=== PATIENT | male | born 1980 ===

== ENCOUNTER 2019-02-16 10:10 | Inpatient (IN) | payer OTHER ==
[2019-02-16] MEDS ORDERED: ZOFRAN ODT PO/SL ONE (10:12)
[2019-02-16] MEDS ORDERED: NACL 0.9% 1000 ML IV ONE (10:14)
--- NOTE | 2019-02-16 10:14 | Event Note ---
ED Screening Note ED Screening Note: TO ER WITH SEVERE L SIDE PAIN NAUSEA; NO VOMITING RECENT UTI FEVER AND TACHY CODE SEPSIS HERE ALONE RX PILL FOR INFECTION- DOES NOT KNOW NAME PMH ??HTN PSH NONE CIG SMOKER NO ETOH NO DRUGS LIVES WITH FIJIAN ONLY This initial assessment/diagnostic orders/clinical plan/treatment(s) is/are sub ject to change based on patients health status, clinical progression and re- assessment by fellow clinical providers in the ED. Further treatment and workup at subsequent clinical providers discretion. Patient/guardian urged not to elope from the ED as their condition may be serious if not clinically assessed and managed. Initial orders include:
[2019-02-16] MEDS ORDERED: ZOFRAN IV ONE (10:17)
[2019-02-16] MEDS ORDERED: TYLENOL PO ONE (10:17)
[2019-02-16] MEDS ORDERED: MAXIPIME/NS 2 GM/100 ML 2 GM/100 ML BAG IV ONE (10:25)
--- NOTE | 2019-02-16 10:28 | Emergency Department Report ---
ED General Adult HPI - General Chief complaint: Fever Stated complaint: ABDOMINAL PAIN Time Seen by Provider: 02/16/19 10:12 Source: patient Mode of arrival: Ambulatory Limitations: No Limitations, Language Barrier - History of Present Illness Initial comments: Patient is a 39-year-old male presents emergency room with left-sided abdominal pain and nausea. Patient denies vomiting. Patient states he recently had urinary symptoms and was seen in a urgent care and given a antibiotic for his urinary infection. Patient states symptoms are worsening. Patient states he has a fever today. Patient states she's not feeling very good. Patient states his abdominal pain as a 10 out of 10. Patient states the pain is worse with movement and better with rest. -: Sudden Location: abdomen Radiation: non-radiation Severity scale (0 -10): 10 Quality: stabbing Consistency: constant Improves with: rest Worsens with: movement Associated Symptoms: fever/chills, malaise. denies: confusion, chest pain, cough, diaphoresis, headaches, loss of appetite, rash, seizure, shortness of breath, syncope, weakness - Related Data Home Medications Medication Instructions Recorded Confirmed Last Taken No Known Home Medications [No 02/16/19 02/16/19 Unknown Reported Home Medications] Allergies Allergy/AdvReac Type Severity Reaction Status Date / Time No Known Allergies Allergy Unverified 02/16/19 10:17 ED Review of Systems ROS: Stated complaint: ABDOMINAL PAIN Other details as noted in HPI Constitutional: chills, fever, malaise Eyes: denies: eye pain, eye discharge, vision change ENT: denies: ear pain, throat pain Respiratory: denies: cough, shortness of breath, wheezing Cardiovascular: denies: chest pain, palpitations Endocrine: no symptoms reported Gastrointestinal: abdominal pain, nausea. denies: vomiting, diarrhea Genitourinary: dysuria. denies: urgency Musculoskeletal: denies: back pain, joint swelling, arthralgia Skin: denies: rash, lesions Neurological: denies: headache, weakness, paresthesias Psychiatric: denies: anxiety, depression Hematological/Lymphatic: denies: easy bleeding, easy bruising ED Past Medical Hx - Past Medical History Previous Medical History?: No - Surgical History Past Surgical History?: No - Family History Family history: no significant - Social History Smoking Status: Never Smoker Substance Use Type: None - Medications Home Medications: Home Medications Medication Instructions Recorded Confirmed Last Taken Type No Known Home Medications [No 02/16/19 02/16/19 Unknown History Reported Home Medications] ED Physical Exam - General Limitations: No Limitations, Language Barrier General appearance: alert, in no apparent distress - Head Head exam: Present: atraumatic, normocephalic - Eye Eye exam: Present: normal appearance - ENT ENT exam: Present: mucous membranes moist - Neck Neck exam: Present: normal inspection - Respiratory Respiratory exam: Present: decreased breath sounds (on left). Absent: respiratory distress, wheezes, rales - Cardiovascular Cardiovascular Exam: Present: regular rate, normal rhythm. Absent: systolic murmur, diastolic murmur, rubs, gallop - GI/Abdominal GI/Abdominal exam: Present: soft, tenderness (left upper quadrant tenderness), normal bowel sounds - Rectal Rectal exam: Present: deferred - Extremities Exam Extremities exam: Present: normal inspection - Back Exam Back exam: Present: normal inspection - Neurological Exam Neurological exam: Present: alert, oriented X3 - Psychiatric Psychiatric exam: Present: normal affect, normal mood - Skin Skin exam: Present: warm, dry, intact, normal color. Absent: rash ED Course Vital Signs 02/16/19 02/16/19 02/16/19 10:15 10:57 11:00 Temperature 102.8 F H Pulse Rate 125 H 106 H Respiratory 20 48 H Rate Blood Pressure 143/89 133/93 O2 Sat by Pulse 94 94 94 Oximetry 02/16/19 02/16/19 02/16/19 11:16 11:30 12:00 Temperature Pulse Rate 90 85 Respiratory 36 H 29 H 32 H Rate Blood Pressure 119/86 116/83 O2 Sat by Pulse 94 94 94 Oximetry 02/16/19 02/16/19 02/16/19 12:30 12:55 13:00 Temperature 98.8 F Pulse Rate 91 H 101 H Respiratory 21 24 Rate Blood Pressure 131/92 138/95 O2 Sat by Pulse 90 Oximetry 02/16/19 02/16/19 02/16/19 13:18 13:30 14:00 Temperature 99.2 F Pulse Rate 87 81 Respiratory 31 H 28 H Rate Blood Pressure 138/95 122/84 O2 Sat by Pulse 97 98 Oximetry 02/16/19 14:30 Temperature Pulse Rate 80 Respiratory 29 H Rate Blood Pressure 119/82 O2 Sat by Pulse Oximetry - Reevaluation(s) Reevaluation #1: Patient states he is feeling better. Patient received 1 L fluid and will receive another. Patient received antibiotics. Patient's heart rate has improved 02/16/19 11:00 Discussed all results with patient. Patient will be admitted to the hospitalist service. Patient agrees to plan of care. 02/16/19 12:07 - Consultations Consultation #1: Hospitalist consulted for admission. Hospitalist to admit patient. Hospitalist to assume care patient. 02/16/19 12:08 ED Medical Decision Making - Lab Data Result diagrams: 02/16/19 10:34 02/16/19 10:34 - EKG Data -: EKG Interpreted by Ok EKG shows normal: sinus rhythm, axis, intervals, QRS complexes, ST-T waves Rate: normal - Radiology Data Radiology results: report reviewed CT ABDOMEN PELVIS WITHOUT CONTRAST: HISTORY: Abdominal pain, fever. COMPARISON: none. TECHNIQUE: Helical CT in 1.25mm intervals without IV contrast. Sagittal and coronal reconstructions. FINDINGS: Lung bases: Patchy infiltrate or partial atelectasis is noted in the left lower lobe. Minor linear atelectasis in the right lower lobe. Heart size is normal. Liver: Normal. Biliary system: Normal. Pancreas: Normal. Spleen: Normal. Kidneys/ureters/bladder: A 1.3 x 0.9 x 2.8 cm calculus is identified at the left ureteropelvic junction. There is moderate pyelocaliectasis within the left kidney. Multiple smaller calyceal stones are noted at the inferior pole of the left kidney. There are 2 punctate renal stones in the inferior right kidney. The bladder is unremarkable. Adrenal glands: Normal. Aorta: Normal. Intestines: Normal. Appendix: Not confidently identified, correlate with surgical history. No inflammatory changes in the right lower quadrant. Pelvic viscera: Normal. Ascites: None. Adenopathy: None. Musculoskeletal: Mild lumbar spondylosis. No fracture or suspicious bony lesion. IMPRESSION: Left lower lobe opacity as described. Large obstructing stone at the left ureteropelvic junction. Moderate pyelocaliectasis in the left kidney. Scattered bilateral renal stones as described. - Medical Decision Making Patient is a 39-year-old male that presents to emergency room with complaints of fever, abdominal pain, nausea. Patient found to have a left-sided pneumonia on chest x-ray. Patient had a CT of the abdomen done for his pain and was found to have findings consistent with pyelonephritis and kidney stones. Patient given antibiotics. Respond to have multiple lab abnormalities. Patient's findings consistent with infection with elevated white blood cell count and abnormal chemistry due to dehydration. Patient given antibiotics and fluids immediately upon arrival to the main side of the ER. Patient heart rate elevated but improved with fluids. Patient artery tried outpatient treatment for his urinary tract infection - Differential Diagnosis sepsis. Tachycardic. Dehydration. Pneumonia. Urinary tract infection. Critical Care Time: Yes Critical care attestation.: If time is entered above; I have spent that time in minutes in the direct care of this critically ill patient, excluding procedure time. Critical Care Time: 45 MINUTES ED Disposition Clinical Impression: Tachycardia, Pyelonephritis, Kidney stone on left side, Dehydration Sepsis Qualifiers: Sepsis type: sepsis due to unspecified organism Qualified Code(s): A41.9 - Sepsis, unspecified organism Pneumonia Qualifiers: Pneumonia type: due to unspecified organism Laterality: left Lung location: lower lobe of lung Qualified Code(s): J18.1 - Lobar pneumonia, unspecified organism Fever Qualifiers: Fever type: unspecified Qualified Code(s): R50.9 - Fever, unspecified Abdominal pain Qualifiers: Abdominal location: left upper quadrant Qualified Code(s): R10.12 - Left upper quadrant pain Disposition: OP ADMIT IP TO THIS HOSP Is pt being admited?: Yes Does the pt Need Aspirin: No Condition: Critical Time of Disposition: 12:08
[2019-02-16 10:57] LABS: Basophils # (Auto) 0.1 K/mm3 (0.0-0.1); Basophils % (Auto) 0.4 % (0.0-1.8); Eosinophils % (Auto) 0.1 % (0.0-4.3); Hematocrit 46.7 % (35.5-45.6); Hemoglobin 15.8 gm/dl (11.8-15.2); Lymphocytes # (Auto) 1.7 K/mm3 (1.2-5.4); Lymphocytes % (Auto) 9.4 % (13.4-35.0); Mean Corpuscular HGB Conc 34 % (32-34); Mean Corpuscular Volume 94 fl (84-94); Monocytes # (Auto) 1.5 K/mm3 (0.0-0.8); Monocytes % (Auto) 8.2 % (0.0-7.3); Platelet Count 305 K/mm3 (140-440); Red Blood Count 4.99 M/mm3 (3.65-5.03); Red Cell Distribution Width 14.5 % (13.2-15.2)
[2019-02-16] MEDS ORDERED: ROCEPHIN/NS 1 GM/50 ML 1 GM/50 ML BAG IV SCH (11:00)
[2019-02-16 11:11] LABS: Albumin 3.4 g/dL (3.9-5); Bilirubin,Direct 0.4 mg/dL (0-0.2)
[2019-02-16 11:12] LABS: Alanine Aminotransferase 62 units/L (7-56); Albumin 3.4 g/dL (3.9-5); BUN/Creatinine Ratio 13; Blood Urea Nitrogen 12 mg/dL (9-20); Calcium 8.7 mg/dL (8.4-10.2); Hemolysis Index 6
[2019-02-16] MEDS ORDERED: DILAUDID IV ONE (11:13)
[2019-02-16] MEDS ORDERED: NACL 0.9% 1000 ML 1,000 ML IV ONE (11:13)
--- NOTE | 2019-02-16 11:16 | XRay Report ---
ROUTINE CHEST, TWO VIEWS: HISTORY: Fever. A left lower lobe opacity is identified which could represent pneumonia. The remainder of the lungs are clear. Normal heart and mediastinal structures. Normal bony thorax. IMPRESSION: Left lower lobe infiltrate.
--- NOTE | 2019-02-16 11:29 | Cat Scan Report ---
CT ABDOMEN PELVIS WITHOUT CONTRAST: HISTORY: Abdominal pain, fever. COMPARISON: none. TECHNIQUE: Helical CT in 1.25mm intervals without IV contrast. Sagittal and coronal reconstructions. FINDINGS: Lung bases: Patchy infiltrate or partial atelectasis is noted in the left lower lobe. Minor linear atelectasis in the right lower lobe. Heart size is normal. Liver: Normal. Biliary system: Normal. Pancreas: Normal. Spleen: Normal. Kidneys/ureters/bladder: A 1.3 x 0.9 x 2.8 cm calculus is identified at the left ureteropelvic junction. There is moderate pyelocaliectasis within the left kidney. Multiple smaller calyceal stones are noted at the inferior pole of the left kidney. There are 2 punctate renal stones in the inferior right kidney. The bladder is unremarkable. Adrenal glands: Normal. Aorta: Normal. Intestines: Normal. Appendix: Not confidently identified, correlate with surgical history. No inflammatory changes in the right lower quadrant. Pelvic viscera: Normal. Ascites: None. Adenopathy: None. Musculoskeletal: Mild lumbar spondylosis. No fracture or suspicious bony lesion. IMPRESSION: Left lower lobe opacity as described. Large obstructing stone at the left ureteropelvic junction. Moderate pyelocaliectasis in the left kidney. Scattered bilateral renal stones as described.
[2019-02-16 13:27] LABS: Bilirubin,Urine NEG (Negative); Blood,Urine SM (Negative); Color,Urine Yellow (Yellow); Mucus,Urine FEW /HPF; Protein,Urine <15 mg/dL mg/dL (Negative); Urobilinogen,Urine < 2.0 mg/dL (<2.0)
[2019-02-16] MEDS: DILAUDID IV PRN ×2 (17:05→21:45)
[2019-02-16] MEDS ORDERED: DILAUDID ONE (17:14)
[2019-02-16] MEDS ORDERED: ZOFRAN IV PRN (19:42)
[2019-02-16] MEDS ORDERED: SODIUM CHLORIDE FLUSH SYRINGE 10 ML IV PRN (19:42)
--- NOTE | 2019-02-16 19:42 | History and Physical Report ---
History of Present Illness Date of examination: 02/16/19 Date of admission: 02/16/19 12:17 Chief complaint: Fever and Abdominal pain 2 days History of present illness: Patient is a 39-year-old male presents emergency room with left-sided abdominal pain and nausea. Patient denies vomiting. Patient states he recently had urinary symptoms and was seen in a urgent care and given a antibiotic for his urinary infection. Patient states symptoms are worsening. Patient states he has a fever today. Patient states he's not feeling very good. Patient states his abdominal pain as a 10 out of 10. Patient states the pain is worse with movement and better with rest. - Past Medical History Previous Medical History?: No - Surgical History Past Surgical History?: No - Family History Family history: no significant - Social History Smoking Status: Never Smoker Substance Use Type: None - Medications Home Medications: Home Medications Medication Instructions Recorded Confirmed Last Taken Type No Known Home Medications [No 02/16/19 02/16/19 Unknown History Reported Home Medications] Review of Systems ROS: Stated complaint: ABDOMINAL PAIN Other details as noted in HPI Constitutional: chills, fever, malaise Eyes: denies: eye pain, eye discharge, vision change ENT: denies: ear pain, throat pain Respiratory: denies: cough, shortness of breath, wheezing Cardiovascular: denies: chest pain, palpitations Endocrine: no symptoms reported Gastrointestinal: abdominal pain, nausea. denies: vomiting, diarrhea Genitourinary: dysuria. denies: urgency Musculoskeletal: denies: back pain, joint swelling, arthralgia Skin: denies: rash, lesions Neurological: denies: headache, weakness, paresthesias Psychiatric: denies: anxiety, depression Hematological/Lymphatic: denies: easy bleeding, easy bruising Medications and Allergies Allergies Allergy/AdvReac Type Severity Reaction Status Date / Time No Known Allergies Allergy Unverified 02/16/19 10:17 Home Medications Medication Instructions Recorded Confirmed Last Taken Type No Known Home Medications [No 02/16/19 02/16/19 Unknown History Reported Home Medications] Active Meds: Active Medications Hydromorphone HCl (Dilaudid) 0.5 mg IV Q3H PRN PRN Reason: Pain , Severe (7-10) Last Admin: 02/16/19 17:05 Dose: 0.5 mg Documented by: Exam - Constitutional Vitals: Temp Pulse Resp BP Pulse Ox 99.2 F 90 21 119/87 98 02/16/19 13:18 02/16/19 19:30 02/16/19 19:34 02/16/19 19:30 02/16/19 19:34 General appearance: Present: mild distress, well-nourished - EENT Eyes: Present: PERRL ENT: hearing intact, clear oral mucosa - Neck Neck: Present: supple, normal ROM - Respiratory Respiratory effort: normal Respiratory: bilateral: CTA - Cardiovascular Heart rate: 98 Rhythm: regular Heart Sounds: Present: S1 & S2. Absent: rub, click - Extremities Extremities: no ischemia, pulses intact, pulses symmetrical, No edema Peripheral Pulses: within normal limits - Abdominal General gastrointestinal: Present: soft, tender, non-distended, normal bowel sounds Localized gastrointestinal: tender: diffuse Male genitourinary: Present: normal - Rectal Rectal Exam: deferred - Integumentary Integumentary: Present: clear, warm, dry - Musculoskeletal Musculoskeletal: gait normal, strength equal bilaterally - Psychiatric Psychiatric: appropriate mood/affect, intact judgment & insight - Neurologic Neurologic: CNII-XII intact, moves all extremities - Allied Health Allied health notes reviewed: nursing, case management Results - Labs CBC & Chem 7: 02/16/19 10:34 02/16/19 10:34 Labs: Laboratory Last Values WBC 18.4 K/mm3 (4.5-11.0) H 02/16/19 10:34 RBC 4.99 M/mm3 (3.65-5.03) 02/16/19 10:34 Hgb 15.8 gm/dl (11.8-15.2) H 02/16/19 10:34 Hct 46.7 % (35.5-45.6) H 02/16/19 10:34 MCV 94 fl (84-94) 02/16/19 10:34 MCH 32 pg (28-32) 02/16/19 10:34 MCHC 34 % (32-34) 02/16/19 10:34 RDW 14.5 % (13.2-15.2) 02/16/19 10:34 Plt Count 305 K/mm3 (140-440) 02/16/19 10:34 Lymph % (Auto) 9.4 % (13.4-35.0) L 02/16/19 10:34 [place] % (Auto) 8.2 % (0.0-7.3) H 02/16/19 10:34 Eos % (Auto) 0.1 % (0.0-4.3) 02/16/19 10:34 Baso % (Auto) 0.4 % (0.0-1.8) 02/16/19 10:34 Lymph # 1.7 K/mm3 (1.2-5.4) 02/16/19 10:34 [place] # 1.5 K/mm3 (0.0-0.8) H 02/16/19 10:34 Eos # 0.0 K/mm3 (0.0-0.4) 02/16/19 10:34 Baso # 0.1 K/mm3 (0.0-0.1) 02/16/19 10:34 Seg Neutrophils % 81.9 % (40.0-70.0) H 02/16/19 10:34 Seg Neutrophils # 15.1 K/mm3 (1.8-7.7) H 02/16/19 10:34 Sodium 131 mmol/L (137-145) L 02/16/19 10:34 Potassium 3.4 mmol/L (3.6-5.0) L 02/16/19 10:34 Chloride 90.3 mmol/L (98-107) L 02/16/19 10:34 Carbon Dioxide 23 mmol/L (22-30) 02/16/19 10:34 21 mmol/L 02/16/19 10:34 BUN 12 mg/dL (9-20) 02/16/19 10:34 0.9 mg/dL (0.8-1.5) 02/16/19 10:34 Estimated GFR > 60 ml/min 02/16/19 10:34 13 % 02/16/19 10:34 Glucose 128 mg/dL (75-100) H 02/16/19 10:34 Lactic Acid 1.40 mmol/L (0.7-2.0) 02/16/19 13:12 Calcium 8.7 mg/dL (8.4-10.2) 02/16/19 10:34 1.20 mg/dL (0.1-1.2) 02/16/19 10:34 1.20 mg/dL (0.1-1.2) 02/16/19 10:34 0.4 mg/dL (0-0.2) H 02/16/19 10:34 0.8 mg/dL 02/16/19 10:34 AST 38 units/L (5-40) 02/16/19 10:34 AST 39 units/L (5-40) 02/16/19 10:34 ALT 62 units/L (7-56) H 02/16/19 10:34 ALT 62 units/L (7-56) H 02/16/19 10:34 86 units/L (35-129) 02/16/19 10:34 86 units/L (35-129) 02/16/19 10:34 8.7 g/dL (6.3-8.2) H 02/16/19 10:34 8.7 g/dL (6.3-8.2) H 02/16/19 10:34 3.4 g/dL (3.9-5) L 02/16/19 10:34 3.4 g/dL (3.9-5) L 02/16/19 10:34 0.6 % 02/16/19 10:34 0.6 % 02/16/19 10:34 Yellow (Yellow) 02/16/19 13:16 Hazy (Clear) 02/16/19 13:16 6.0 (5.0-7.0) 02/16/19 13:16 Ur Specific [place] 1.018 (1.003-1.030) 02/16/19 13:16 <15 mg/dl mg/dL (Negative) 02/16/19 13:16 Neg mg/dL (Negative) 02/16/19 13:16 20 mg/dL (Negative) 02/16/19 13:16 Sm (Negative) 02/16/19 13:16 Neg (Negative) 02/16/19 13:16 Neg (Negative) 02/16/19 13:16 < 2.0 mg/dL (<2.0) 02/16/19 13:16 Ur Leukocyte Esterase Sm (Negative) 02/16/19 13:16 19.0 /HPF (0.0-6.0) H 02/16/19 13:16 7.0 /HPF (0.0-6.0) 02/16/19 13:16 U Epithel Cells (Auto) 2.0 /HPF (0-13.0) 02/16/19 13:16 Few /HPF 02/16/19 13:16 - Imaging and Cardiology EKG: report reviewed (NSR 92/min) Chest x-ray: report reviewed CT scan - abdomen: report reviewed Imaging and Cardiology: CT abdomen IMPRESSION: Left lower lobe opacity as described. Large obstructing stone at the left ureteropelvic junction. Moderate pyelocaliectasis in the left kidney. Scattered bilateral renal stones as described. CXR HISTORY: Fever. A left lower lobe opacity is identified which could represent pneumonia. The remainder of the lungs are clear. Normal heart and mediastinal structures. Normal bony thorax. IMPRESSION: Left lower lobe infiltrate. Assessment and Plan Advance Directives: Yes (Full code) VTE prophylaxis?: Chemical Plan of care discussed with patient/family: Yes - Patient Problems (1) Sepsis Current Visit: Yes Status: Acute Qualifiers: Sepsis type: sepsis due to unspecified organism Qualified Code(s): A41.9 - Sepsis, unspecified organism Plan to address problem: Sepsis protocol IV Cefepime and IV Vancomycin (2) LLL pneumonia Current Visit: Yes Status: Acute Plan to address problem: On cefepime and Vancomycin (3) Pyelonephritis Current Visit: Yes Status: Acute Plan to address problem: L uretero pelvic stone Pyelo a possibility Urine wbc present Urology consult requested Texted the consult (4) Kidney stone on left side Current Visit: Yes Status: Acute Plan to address problem: Urology consult requested (5) DVT prophylaxis Current Visit: Yes Status: Acute Plan to address problem: On Lovenox and GI prophylaxis
[2019-02-16] MEDS ORDERED: VANCOMYCIN PHARMACY TO DOSE IV SCH (20:00)
[2019-02-16] MEDS: PEPCID IV SCH (21:45)
[2019-02-16] MEDS: D5NS 1,000 ML IV SCH (21:45)
[2019-02-16] MEDS: SODIUM CHLORIDE FLUSH SYRINGE 10 ML IV SCH (21:46)
[2019-02-16] MEDS: MAXIPIME/NS 2 GM/100 ML 2 GM/100 ML BAG IV SCH (22:26)
[2019-02-17] MEDS: DILAUDID IV PRN ×2 (04:02→21:24)
[2019-02-17] MEDS: MAXIPIME/NS 2 GM/100 ML 2 GM/100 ML BAG IV SCH ×3 (05:24→21:24)
[2019-02-17 06:53] LABS: Basophils # (Auto) 0.1 K/mm3 (0.0-0.1); Basophils % (Auto) 0.3 % (0.0-1.8); Eosinophils # (Auto) 0.1 K/mm3 (0.0-0.4); Eosinophils % (Auto) 0.7 % (0.0-4.3); Hematocrit 39.7 % (35.5-45.6); Hemoglobin 13.4 gm/dl (11.8-15.2); Lymphocytes # (Auto) 1.9 K/mm3 (1.2-5.4); Lymphocytes % (Auto) 12.7 % (13.4-35.0); Mean Corpuscular HGB Conc 34 % (32-34); Mean Corpuscular Volume 95 fl (84-94); Monocytes # (Auto) 1.2 K/mm3 (0.0-0.8); Monocytes % (Auto) 8.4 % (0.0-7.3); Platelet Count 277 K/mm3 (140-440); Red Cell Distribution Width 14.4 % (13.2-15.2)
[2019-02-17 07:17] LABS: Alanine Aminotransferase 37 units/L (7-56); Albumin 2.8 g/dL (3.9-5); BUN/Creatinine Ratio 13; Blood Urea Nitrogen 9 mg/dL (9-20); Hemolysis Index 1
--- NOTE | 2019-02-17 09:10 | Consultation ---
History of Present Illness - Reason for Consult Consult date: 02/17/19 left UPJ stone - History of Present Illness Patient with a history of left flank pain who on presentation was noted to have a 1.1 cm obstructing left ureteropelvic stone. He has a minimal white count. His pain has improved since admission. Medications and Allergies Allergies Allergy/AdvReac Type Severity Reaction Status Date / Time No Known Allergies Allergy Unverified 02/16/19 10:17 Home Medications Medication Instructions Recorded Confirmed Last Taken Type No Known Home Medications [No 02/16/19 02/16/19 Unknown History Reported Home Medications] Active Meds: Active Medications Acetaminophen (Tylenol) 650 mg PO Q4H PRN PRN Reason: Pain MILD(1-3)/Fever >100.5/GOMEZ Famotidine (Pepcid) 20 mg IV BID [facility] Last Admin: 02/16/19 21:45 Dose: 20 mg Documented by: Hydromorphone HCl (Dilaudid) 0.5 mg IV Q3H PRN PRN Reason: Pain , Severe (7-10) Last Admin: 02/17/19 04:02 Dose: 0.5 mg Documented by: Dextrose/Sodium Chloride (D5ns) 1,000 mls @ 75 mls/hr IV DIRECT MIGUEL Last Admin: 02/16/19 21:45 Dose: 75 mls/hr Documented by: Cefepime HCl (Maxipime/Ns 2 Gm/100 Ml) 2 gm in 100 mls @ 200 mls/hr IV Q8HR MIGUEL; Protocol Last Admin: 02/17/19 05:24 Dose: 200 mls/hr Documented by: Ondansetron HCl (Zofran) 4 mg IV Q8H PRN PRN Reason: Nausea And Vomiting Oxycodone/Acetaminophen (Percocet 5/325) 1 tab PO Q6H PRN PRN Reason: Pain, Moderate (4-6) Sodium Chloride (Sodium Chloride Flush Syringe 10 Ml) 10 ml IV BID [facility] Last Admin: 02/16/19 21:46 Dose: 10 ml Documented by: Sodium Chloride (Sodium Chloride Flush Syringe 10 Ml) 10 ml IV PRN PRN PRN Reason: LINE FLUSH Review of Systems ROS unobtainable: due to mental status Exam - Constitutional Vitals: Temp Pulse Resp BP Pulse Ox 99.0 F 83 20 105/59 96 02/17/19 00:09 02/17/19 00:09 02/17/19 00:09 02/17/19 00:09 02/17/19 00:09 General appearance: Present: no acute distress - EENT Eyes: Present: EOM intact ENT: hearing intact - Neck Neck: Present: supple, normal ROM - Respiratory Respiratory effort: normal - Abdominal Male genitourinary: Present: deferred - Rectal Rectal Exam: deferred - Psychiatric Psychiatric: cooperative Results - Labs CBC & Chem 7: 02/17/19 05:45 02/17/19 05:45 Labs: Abnormal lab results 02/16/19 02/16/19 02/16/19 Range/Units 10:34 10:34 10:34 WBC 18.4 H (4.5-11.0) K/mm3 Hgb 15.8 H (11.8-15.2) gm/dl Hct 46.7 H (35.5-45.6) % MCV (84-94) fl Lymph % (Auto) 9.4 L (13.4-35.0) % [place] % (Auto) 8.2 H (0.0-7.3) % [place] # 1.5 H (0.0-0.8) K/mm3 Seg Neutrophils % 81.9 H (40.0-70.0) % Seg Neutrophils # 15.1 H (1.8-7.7) K/mm3 Sodium 131 L (137-145) mmol/L Potassium 3.4 L (3.6-5.0) mmol/L Chloride 90.3 L (98-107) mmol/L Creatinine (0.8-1.5) mg/dL Glucose 128 H (75-100) mg/dL Calcium (8.4-10.2) mg/dL Direct Bilirubin 0.4 H (0-0.2) mg/dL ALT 62 H 62 H (7-56) units/L Total Protein 8.7 H 8.7 H (6.3-8.2) g/dL Albumin 3.4 L 3.4 L (3.9-5) g/dL Urine WBC (Auto) (0.0-6.0) /HPF 02/16/19 02/17/19 02/17/19 Range/Units 13:16 05:45 05:45 WBC 14.7 H (4.5-11.0) K/mm3 Hgb (11.8-15.2) gm/dl Hct (35.5-45.6) % MCV 95 H (84-94) fl Lymph % (Auto) 12.7 L (13.4-35.0) % [place] % (Auto) 8.4 H (0.0-7.3) % [place] # 1.2 H (0.0-0.8) K/mm3 Seg Neutrophils % 77.9 H (40.0-70.0) % Seg Neutrophils # 11.5 H (1.8-7.7) K/mm3 Sodium (137-145) mmol/L Potassium 3.3 L (3.6-5.0) mmol/L Chloride (98-107) mmol/L Creatinine 0.7 L (0.8-1.5) mg/dL Glucose 111 H (75-100) mg/dL Calcium 8.0 L (8.4-10.2) mg/dL Direct Bilirubin (0-0.2) mg/dL ALT (7-56) units/L Total Protein (6.3-8.2) g/dL Albumin 2.8 L (3.9-5) g/dL Urine WBC (Auto) 19.0 H (0.0-6.0) /HPF - Imaging and Cardiology CT scan - abdomen: image reviewed Assessment and Plan Patient will be made nothing by mouth after midnight. He will be scheduled for either a percutaneous nephrostomy tube placement tomorrow or Tuesday depending upon his clinical condition.
[2019-02-17] MEDS: PEPCID IV SCH ×2 (10:10→21:24)
[2019-02-17] MEDS: SODIUM CHLORIDE FLUSH SYRINGE 10 ML IV SCH (10:11)
[2019-02-17] MEDS: D5NS 1,000 ML IV SCH (10:21)
--- NOTE | 2019-02-17 10:32 | Progress Note ---
Assessment and Plan Assessment and plan: Patient is a 39-year-old male presents emergency room with left-sided abdominal pain and nausea and fever. Patient denies vomiting. Patient states he recently had urinary symptoms and was seen in a urgent care and given antibiotic for his urinary infection. Patient states symptoms are worsening. Sepsis due to pneumonia, pyelonephritis Admitted to medical floor Continue cefepime IV, vancomycin ID physician consulted Pneumonia LLL on iv Cefepime Pyelonephritis on left On Cefepime large stone left uretero-pelvic junction Urology consulted Dr. Lewis, IR consulted Full code History Interval history: Left flank pain fever Hospitalist Physical - Physical exam Narrative exam: Gen: Not in acute distress, lying in bed, HEENT: Normocephalic, atraumatic Neck: supple, no JVD Heart: S1 and S2 reg, no murmurs, rubs or gallop Lungs: Clear, no crackles, no wheeze Abd: soft, tender left flank, non distended, normal BS Ext: No edema, no clubbing, no cyanosis, Neuro: Awake,alert, oriented x 3, moves all ext, non focal Psych:Normal mood - Constitutional Vitals: Temp Pulse Resp BP Pulse Ox 99.0 F 83 20 105/59 96 02/17/19 00:09 02/17/19 00:09 02/17/19 00:09 02/17/19 00:09 02/17/19 00:09 General appearance: Present: no acute distress Results - Labs CBC & Chem 7: 02/17/19 05:45 02/17/19 05:45 Labs: Laboratory Last Values WBC 14.7 K/mm3 (4.5-11.0) H 02/17/19 05:45 RBC 4.20 M/mm3 (3.65-5.03) 02/17/19 05:45 Hgb 13.4 gm/dl (11.8-15.2) 02/17/19 05:45 Hct 39.7 % (35.5-45.6) D 02/17/19 05:45 MCV 95 fl (84-94) H 02/17/19 05:45 MCH 32 pg (28-32) 02/17/19 05:45 MCHC 34 % (32-34) 02/17/19 05:45 RDW 14.4 % (13.2-15.2) 02/17/19 05:45 Plt Count 277 K/mm3 (140-440) 02/17/19 05:45 Lymph % (Auto) 12.7 % (13.4-35.0) L 02/17/19 05:45 Weber % (Auto) 8.4 % (0.0-7.3) H 02/17/19 05:45 Eos % (Auto) 0.7 % (0.0-4.3) 02/17/19 05:45 Baso % (Auto) 0.3 % (0.0-1.8) 02/17/19 05:45 Lymph # 1.9 K/mm3 (1.2-5.4) 02/17/19 05:45 Weber # 1.2 K/mm3 (0.0-0.8) H 02/17/19 05:45 Eos # 0.1 K/mm3 (0.0-0.4) 02/17/19 05:45 Baso # 0.1 K/mm3 (0.0-0.1) 02/17/19 05:45 Seg Neutrophils % 77.9 % (40.0-70.0) H 02/17/19 05:45 Seg Neutrophils # 11.5 K/mm3 (1.8-7.7) H 02/17/19 05:45 Sodium 139 mmol/L (137-145) D 02/17/19 05:45 Potassium 3.3 mmol/L (3.6-5.0) L 02/17/19 05:45 Chloride 99.9 mmol/L (98-107) 02/17/19 05:45 Carbon Dioxide 27 mmol/L (22-30) 02/17/19 05:45 15 mmol/L 02/17/19 05:45 BUN 9 mg/dL (9-20) 02/17/19 05:45 0.7 mg/dL (0.8-1.5) L 02/17/19 05:45 Estimated GFR > 60 ml/min 02/17/19 05:45 13 % 02/17/19 05:45 Glucose 111 mg/dL (75-100) H 02/17/19 05:45 5.8 % (4-6) 02/16/19 10:34 Lactic Acid 1.40 mmol/L (0.7-2.0) 02/16/19 13:12 Calcium 8.0 mg/dL (8.4-10.2) L 02/17/19 05:45 0.80 mg/dL (0.1-1.2) 02/17/19 05:45 0.4 mg/dL (0-0.2) H 02/16/19 10:34 0.8 mg/dL 02/16/19 10:34 AST 19 units/L (5-40) 02/17/19 05:45 ALT 37 units/L (7-56) 02/17/19 05:45 63 units/L (35-129) 02/17/19 05:45 7.0 g/dL (6.3-8.2) 02/17/19 05:45 2.8 g/dL (3.9-5) L 02/17/19 05:45 0.7 % 02/17/19 05:45 Yellow (Yellow) 02/16/19 13:16 Hazy (Clear) 02/16/19 13:16 6.0 (5.0-7.0) 02/16/19 13:16 Ur Specific [place] 1.018 (1.003-1.030) 02/16/19 13:16 <15 mg/dl mg/dL (Negative) 02/16/19 13:16 Neg mg/dL (Negative) 02/16/19 13:16 20 mg/dL (Negative) 02/16/19 13:16 Sm (Negative) 02/16/19 13:16 Neg (Negative) 02/16/19 13:16 Neg (Negative) 02/16/19 13:16 < 2.0 mg/dL (<2.0) 02/16/19 13:16 Ur Leukocyte Esterase Sm (Negative) 02/16/19 13:16 19.0 /HPF (0.0-6.0) H 02/16/19 13:16 7.0 /HPF (0.0-6.0) 02/16/19 13:16 U Epithel Cells (Auto) 2.0 /HPF (0-13.0) 02/16/19 13:16 Few /HPF 02/16/19 13:16 Active Medications - Current Medications Current Medications: Generic Name Dose Route Start Last Admin Trade Name Freq PRN Reason Stop Dose Admin Acetaminophen 650 mg 02/16/19 19:42 Tylenol PO Q4H PRN Pain MILD(1-3)/Fever >100.5/GOMEZ Famotidine 20 mg 02/16/19 22:00 02/17/19 10:10 Pepcid IV 20 mg BID MIGUEL Administration Hydromorphone HCl 0.5 mg 02/16/19 17:01 02/17/19 04:02 Dilaudid IV 0.5 mg Q3H PRN Administration Pain , Severe (7-10) Dextrose/Sodium Chloride 1,000 mls @ 75 mls/hr 02/16/19 20:00 02/17/19 10:21 D5ns IV 75 mls/hr DIRECT MIGUEL Administration Cefepime HCl 2 gm in 100 mls @ 200 mls/hr 02/16/19 22:00 02/17/19 05:24 Maxipime/Ns 2 Gm/100 Ml IV 200 mls/hr Q8HR MGIUEL Administration Protocol Ondansetron HCl 4 mg 02/16/19 19:42 Zofran IV Q8H PRN Nausea And Vomiting Oxycodone/Acetaminophen 1 tab 02/16/19 19:42 Percocet 5/325 PO Q6H PRN Pain, Moderate (4-6) Sodium Chloride 10 ml 02/16/19 22:00 02/17/19 10:11 Sodium Chloride Flush Syringe 10 Ml IV 10 ml BID MIGUEL Administration Sodium Chloride 10 ml 02/16/19 19:42 Sodium Chloride Flush Syringe 10 Ml IV PRN PRN LINE FLUSH
[2019-02-17] MEDS: D5W/NS W/KCL 20MEQ 20 MEQ/1,000 ML BAG IV SCH (13:56)
--- NOTE | 2019-02-17 16:25 | Consultation ---
History of Present Illness - Reason for Consult Consult date: 02/17/19 Sepsis, pyelonephritis, pneumonia Requesting physician: ANGELA APONTE - History of Present Illness The patient is a 39-year-old male with no significant past medical history presented to the emergency room with left-sided flank pain and associated nausea. He was recently given an antibiotic for a possible UTI after he was seen with similar symptoms at Urgent Care. CT scan here revealed left-sided obstructing stone. Patient was also found to have leukocytosis with concerns for sepsis. There was also concern for left-sided pneumonia. Patient was empirically started on IV cefepime and vancomycin. Infectious diseases was consulted for additional recommendations. Had a fever of 102F on admission. Now afebrile. Denies any respiratory symptoms. Review of Systems: General: + for fever HEENT: no new visual disturbance Respiratory: No cough, sputum, hemoptysis or shortness of breath Cardiovascular: No chest pain, syncope Gastrointestinal: nausea +, no vomiting or diarrhea Genitourinary: dysuria +, flank pain + Musculoskeletal: No new or worsening neck pain or back pain Neurologic: No headaches, seizures Hematologic: No easy bruising or bleeding Endocrine: No night sweats or acute weight loss Skin: negative for rash, jaundice Psychiatric: No suicidal or homicidal ideation Medications and Allergies Allergies Allergy/AdvReac Type Severity Reaction Status Date / Time No Known Allergies Allergy Unverified 02/16/19 10:17 Home Medications Medication Instructions Recorded Confirmed Last Taken Type No Known Home Medications [No 02/16/19 02/16/19 Unknown History Reported Home Medications] Active Meds: Active Medications Acetaminophen (Tylenol) 650 mg PO Q4H PRN PRN Reason: Pain MILD(1-3)/Fever >100.5/GOMEZ Famotidine (Pepcid) 20 mg IV BID [facility] Last Admin: 02/17/19 10:10 Dose: 20 mg Documented by: Hydromorphone HCl (Dilaudid) 0.5 mg IV Q3H PRN PRN Reason: Pain , Severe (7-10) Last Admin: 02/17/19 04:02 Dose: 0.5 mg Documented by: Cefepime HCl (Maxipime/Ns 2 Gm/100 Ml) 2 gm in 100 mls @ 200 mls/hr IV Q8HR MIGUEL; Protocol Last Admin: 02/17/19 13:54 Dose: 200 mls/hr Documented by: Potassium Chloride/Dextrose/Sod Cl (D5w/Ns W/Kcl 20meq) 20 meq in 1,000 mls @ 75 mls/hr IV DIRECT [facility] Last Admin: 02/17/19 13:56 Dose: 75 mls/hr Documented by: Ondansetron HCl (Zofran) 4 mg IV Q8H PRN PRN Reason: Nausea And Vomiting Oxycodone/Acetaminophen (Percocet 5/325) 1 tab PO Q6H PRN PRN Reason: Pain, Moderate (4-6) Sodium Chloride (Sodium Chloride Flush Syringe 10 Ml) 10 ml IV BID [facility] Last Admin: 02/17/19 10:11 Dose: 10 ml Documented by: Sodium Chloride (Sodium Chloride Flush Syringe 10 Ml) 10 ml IV PRN PRN PRN Reason: LINE FLUSH Physical Examination - Physical Exam Narrative exam: Physical Exam: Constitutional: Alert, cooperative. No acute distress Head, Ears, Nose: Normocephalic, atraumatic. External ears, nose normal Eyes: Conjunctivae/corneas clear. No icterus. No ptosis. Neck: Supple, no meningeal signs Oral: no thrush. Cardiovascular: S1, S2 normal. Respiratory: AE decreased in left base. GI: Soft, non-tender; bowel sounds normal. No peritoneal signs. Left CVA tenderness Musculoskeletal: No pedal edema, no cyanosis. Skin: No rash or abscess Hem/Lymphatic: No palpable cervical or supraclavicular nodes. No lymphangitis Psych: Mood ok. Affect normal Neurological: Awake, alert, oriented. No gross abnormality - Constitutional Vitals: Vital Signs Temp Pulse Resp BP Pulse Ox 99.0 F 83 20 105/59 96 02/17/19 00:09 02/17/19 00:09 02/17/19 00:09 02/17/19 00:09 02/17/19 00:09 Temperature -Last 24 Hours Temperature 99.0 F Results - Labs CBC & Chem 7: 02/17/19 05:45 02/17/19 05:45 Labs: Abnormal lab results 02/17/19 02/17/19 Range/Units 05:45 05:45 WBC 14.7 H (4.5-11.0) K/mm3 MCV 95 H (84-94) fl Lymph % (Auto) 12.7 L (13.4-35.0) % [place] % (Auto) 8.4 H (0.0-7.3) % [place] # 1.2 H (0.0-0.8) K/mm3 Seg Neutrophils % 77.9 H (40.0-70.0) % Seg Neutrophils # 11.5 H (1.8-7.7) K/mm3 Potassium 3.3 L (3.6-5.0) mmol/L Creatinine 0.7 L (0.8-1.5) mg/dL Glucose 111 H (75-100) mg/dL Calcium 8.0 L (8.4-10.2) mg/dL Albumin 2.8 L (3.9-5) g/dL - Imaging and Cardiology Chest x-ray: report reviewed, image reviewed (Chest x-ray shows small left lower lobe infiltrate) CT scan - abdomen: report reviewed, image reviewed (CT abdomen and pelvis showed small left lower lobe infiltrate. Also evidence of left kidney with obstructing stone.) Assessment and Plan Cultures: 02/16/2019 blood culture: No growth 02/16/2019 urine culture: No growth A/P: 39/M with no PMH, admitted with: 1) Sepsis, POA likely secondary to left-sided pyelonephritis, nephrolithiasis: Planned for possible IR nephrostomy. Leucocytosis improving. Continue empiric cefepime. Cultures could be negative given recent abx use. 2) ?LLL pneumonia: ?could be related to atelectasis due to not taking deep breath due to pain. Anyways, patient is on abx. Recs: Continue IV Cefepime, dose decreased to 2 gm q12 hrs Discontinued vancomycin Follow-up cultures Awaiting IR nephrostomy MD Damon Smith [facility] C: [phone] O: [phone] F: [phone]
--- NOTE | 2019-02-17 21:42 | Consultation ---
HISTORY OF PRESENT ILLNESS: This is a 39-year-old gentleman who I just happened to see on my list and I was not called, was admitted with a large stone in left kidney ____ I just happened to see on my list and it is 1.3 x 2.8 x 0.9. He just had something to eat and drink and I spoke to him and his family about treatment options. PAST MEDICAL HISTORY: No history. PAST SURGICAL HISTORY: Denied. ALLERGIES: Negative. SOCIAL HISTORY: Negative. FAMILY HISTORY: Noncontributory. REVIEW OF SYSTEMS: Left flank pain. PHYSICAL EXAMINATION: GENERAL: He is awake. He is in no distress. He does not look toxic. ABDOMEN: Soft, nondistended, mild left flank pain. GENITALIA: Normal external genitalia. IMPRESSION AND PLAN: A 39-year-old, large renal stone. I spoke to interventional, options include stenting versus a perc tube. Probably best to place the perc tube because we could use that for access to do a percutaneous nephrolithotomy that is more effective than ureteroscopic extraction, it is a big UPJ stone. JOB# [id number] GRISELDA/JEAN CLAUDE
[2019-02-18 06:53] LABS: Hematocrit 39.7 % (35.5-45.6); Hemoglobin 13.3 gm/dl (11.8-15.2); Mean Corpuscular HGB Conc 34 % (32-34); Mean Corpuscular Volume 94 fl (84-94); Platelet Count 294 K/mm3 (140-440); Red Blood Count 4.23 M/mm3 (3.65-5.03); Red Cell Distribution Width 14.2 % (13.2-15.2)
[2019-02-18 06:56] LABS: BUN/Creatinine Ratio 12; Blood Urea Nitrogen 7 mg/dL (9-20); Calcium 8.6 mg/dL (8.4-10.2); Hemolysis Index 0
[2019-02-18] MEDS: SODIUM CHLORIDE FLUSH SYRINGE 10 ML IV SCH ×2 (07:31→09:51)
[2019-02-18] MEDS: D5W/NS W/KCL 20MEQ 20 MEQ/1,000 ML BAG IV SCH (07:43)
[2019-02-18] MEDS ORDERED: KPHOS 30 MMOL in NACL 0.9% 500 ML 500 ML IV ONE (08:29)
[2019-02-18] MEDS: PEPCID IV SCH ×2 (09:51→22:33)
--- NOTE | 2019-02-18 10:10 | Progress Note ---
Assessment and Plan Assessment and plan: Patient is a 39-year-old male presents emergency room with left-sided abdominal pain and nausea and fever. Patient denies vomiting. Patient states he recently had urinary symptoms and was seen in a urgent care and given antibiotic for his urinary infection. He was seen in ED, diagnosed with Sepsis due to left pyelonephritis, large stone left uretero-pelvic junction. For nephrostomy tube today. Sepsis due to pneumonia, pyelonephritis Admitted to medical floor Continue cefepime IV, vancomycin ID physician following Pneumonia LLL on iv Cefepime Pyelonephritis on left On Cefepime large stone left uretero-pelvic junction Urology consulted Dr. Lewis, IR consulted Full code status Discussed with patient and at bedside History Interval history: Left flank pain fever Hospitalist Physical - Physical exam Narrative exam: Gen: Not in acute distress, lying in bed, HEENT: Normocephalic, atraumatic Neck: supple, no JVD Heart: S1 and S2 reg, no murmurs, rubs or gallop Lungs: Clear, no crackles, no wheeze Abd: soft, tender left flank, non distended, normal BS Ext: No edema, no clubbing, no cyanosis, Neuro: Awake,alert, oriented x 3, moves all ext, non focal Psych:Normal mood - Constitutional Vitals: Temp Pulse Resp BP Pulse Ox 99.7 F H 87 20 132/87 94 02/18/19 05:33 02/18/19 05:33 02/18/19 05:33 02/18/19 05:33 02/18/19 05:33 General appearance: Present: no acute distress Results - Labs CBC & Chem 7: 02/18/19 13:17 02/18/19 13:17 Labs: Laboratory Last Values WBC 13.8 K/mm3 (4.5-11.0) H 02/18/19 05:27 RBC 4.23 M/mm3 (3.65-5.03) 02/18/19 05:27 Hgb 13.3 gm/dl (11.8-15.2) 02/18/19 05:27 Hct 39.7 % (35.5-45.6) 02/18/19 05:27 MCV 94 fl (84-94) 02/18/19 05:27 MCH 32 pg (28-32) 02/18/19 05:27 MCHC 34 % (32-34) 02/18/19 05:27 RDW 14.2 % (13.2-15.2) 02/18/19 05:27 Plt Count 294 K/mm3 (140-440) 02/18/19 05:27 Lymph % (Auto) 12.7 % (13.4-35.0) L 02/17/19 05:45 [place] % (Auto) 8.4 % (0.0-7.3) H 02/17/19 05:45 Eos % (Auto) 0.7 % (0.0-4.3) 02/17/19 05:45 Baso % (Auto) 0.3 % (0.0-1.8) 02/17/19 05:45 Lymph # 1.9 K/mm3 (1.2-5.4) 02/17/19 05:45 [place] # 1.2 K/mm3 (0.0-0.8) H 02/17/19 05:45 Eos # 0.1 K/mm3 (0.0-0.4) 02/17/19 05:45 Baso # 0.1 K/mm3 (0.0-0.1) 02/17/19 05:45 Seg Neutrophils % 77.9 % (40.0-70.0) H 02/17/19 05:45 Seg Neutrophils # 11.5 K/mm3 (1.8-7.7) H 02/17/19 05:45 Sodium 141 mmol/L (137-145) 02/18/19 05:27 Potassium 3.1 mmol/L (3.6-5.0) L 02/18/19 05:27 Chloride 102.7 mmol/L (98-107) 02/18/19 05:27 Carbon Dioxide 26 mmol/L (22-30) 02/18/19 05:27 15 mmol/L 02/18/19 05:27 BUN 7 mg/dL (9-20) L 02/18/19 05:27 0.6 mg/dL (0.8-1.5) L 02/18/19 05:27 Estimated GFR > 60 ml/min 02/18/19 05:27 12 % 02/18/19 05:27 Glucose 115 mg/dL (75-100) H 02/18/19 05:27 5.8 % (4-6) 02/16/19 10:34 Lactic Acid 1.40 mmol/L (0.7-2.0) 02/16/19 13:12 Calcium 8.6 mg/dL (8.4-10.2) 02/18/19 05:27 Phosphorus 2.20 mg/dL (2.5-4.5) L 02/18/19 05:27 Magnesium 1.70 mg/dL (1.7-2.3) 02/18/19 05:27 0.80 mg/dL (0.1-1.2) 02/17/19 05:45 0.4 mg/dL (0-0.2) H 02/16/19 10:34 0.8 mg/dL 02/16/19 10:34 AST 19 units/L (5-40) 02/17/19 05:45 ALT 37 units/L (7-56) 02/17/19 05:45 63 units/L (35-129) 02/17/19 05:45 7.0 g/dL (6.3-8.2) 02/17/19 05:45 2.8 g/dL (3.9-5) L 02/17/19 05:45 0.7 % 02/17/19 05:45 Yellow (Yellow) 02/16/19 13:16 Hazy (Clear) 02/16/19 13:16 6.0 (5.0-7.0) 02/16/19 13:16 Ur Specific [place] 1.018 (1.003-1.030) 02/16/19 13:16 <15 mg/dl mg/dL (Negative) 02/16/19 13:16 Neg mg/dL (Negative) 02/16/19 13:16 20 mg/dL (Negative) 02/16/19 13:16 Sm (Negative) 02/16/19 13:16 Neg (Negative) 02/16/19 13:16 Neg (Negative) 02/16/19 13:16 < 2.0 mg/dL (<2.0) 02/16/19 13:16 Ur Leukocyte Esterase Sm (Negative) 02/16/19 13:16 19.0 /HPF (0.0-6.0) H 02/16/19 13:16 7.0 /HPF (0.0-6.0) 02/16/19 13:16 U Epithel Cells (Auto) 2.0 /HPF (0-13.0) 02/16/19 13:16 Few /HPF 02/16/19 13:16 Active Medications - Current Medications Current Medications: Generic Name Dose Route Start Last Admin Trade Name Freq PRN Reason Stop Dose Admin Acetaminophen 650 mg 02/16/19 19:42 Tylenol PO Q4H PRN Pain MILD(1-3)/Fever >100.5/GOMEZ Famotidine 20 mg 02/16/19 22:00 02/18/19 09:51 Pepcid IV 20 mg BID MIGUEL Administration Hydromorphone HCl 0.5 mg 02/16/19 17:01 02/17/19 21:24 Dilaudid IV 0.5 mg Q3H PRN Administration Pain , Severe (7-10) Potassium Chloride/Dextrose/Sod Cl 20 meq in 1,000 mls @ 75 mls/hr 02/17/19 13:00 02/18/19 07:43 D5w/Ns W/Kcl 20meq IV 75 mls/hr DIRECT MIGUEL Administration Cefepime HCl 2 gm in 100 mls @ 200 mls/hr 02/17/19 22:00 02/17/19 21:24 Maxipime/Ns 2 Gm/100 Ml IV 200 mls/hr Q12HR MIGUEL Administration Protocol Potassium Phosphate 30 mmol/ 510 mls @ 85 mls/hr 02/18/19 08:29 02/18/19 09:51 Sodium Chloride IV 02/18/19 14:28 85 mls/hr ONCE ONE Administration Ondansetron HCl 4 mg 02/16/19 19:42 Zofran IV Q8H PRN Nausea And Vomiting Oxycodone/Acetaminophen 1 tab 02/16/19 19:42 Percocet 5/325 PO Q6H PRN Pain, Moderate (4-6) Sodium Chloride 10 ml 02/16/19 22:00 02/18/19 09:51 Sodium Chloride Flush Syringe 10 Ml IV 10 ml BID MIGUEL Administration Sodium Chloride 10 ml 02/16/19 19:42 Sodium Chloride Flush Syringe 10 Ml IV PRN PRN LINE FLUSH
[2019-02-18] MEDS ORDERED: LEVAQUIN 500MG/100ML 500 MG/100 ML BAG IV ONE (10:15)
[2019-02-18] MEDS ORDERED: NACL 0.9% 500 ML IR ONE ×2 (10:15→18:26)
[2019-02-18] MEDS ORDERED: XYLOCAINE 2% INFILTRATI ONE ×2 (10:15→18:26)
[2019-02-18] MEDS: VERSED ONE ×2 (10:56→11:11)
[2019-02-18] MEDS: SUBLIMAZE ONE ×2 (10:56→11:10)
--- NOTE | 2019-02-18 11:20 | Progress Note ---
Assessment and Plan Patient will be taken down today for placement of a left nephrostomy tube to allow decompression of the kidney and poor access or percutaneous nephrolithotomy Subjective Date of service: 02/18/19 Principal diagnosis: obstructing left ureteropelvic stone Interval history: Patient with a history of obstructing left ureteropelvic stone. Hydronephrosis. The patient has improved but diffuse left flank pain. Objective - Constitutional Vitals: Vital Signs - 12hr 02/18/19 05:33 Temperature 99.7 F H Pulse Rate 87 Respiratory 20 Rate Blood Pressure 132/87 O2 Sat by Pulse 94 Oximetry General appearance: Present: no acute distress - EENT Eyes: EOM intact ENT: hearing intact - Neck Neck: supple, normal ROM - Respiratory Respiratory effort: normal - Breasts Breasts: deferred Extremities: no ischemia - Gastrointestinal General gastrointestinal: Present: deferred - Genitourinary Male genitourinary: deferred - Psychiatric Psychiatric: cooperative - Labs CBC & Chem 7: 02/18/19 05:27 02/18/19 05:27 Labs: Abnormal lab results 02/18/19 02/18/19 Range/Units 05:27 05:27 WBC 13.8 H (4.5-11.0) K/mm3 Potassium 3.1 L (3.6-5.0) mmol/L BUN 7 L (9-20) mg/dL Creatinine 0.6 L (0.8-1.5) mg/dL Glucose 115 H (75-100) mg/dL Phosphorus 2.20 L (2.5-4.5) mg/dL Medications & Allergies - Medications Allergies/Adverse Reactions: Allergies No Known Allergies Allergy (Unverified 02/16/19 10:17) Home Medications: Home Medications Medication Instructions Recorded Confirmed Last Taken Type No Known Home Medications [No 02/16/19 02/16/19 Unknown History Reported Home Medications] Active Medications: Generic Name Dose Route Start Last Admin Trade Name Freq PRN Reason Stop Dose Admin Acetaminophen 650 mg 02/16/19 19:42 Tylenol PO Q4H PRN Pain MILD(1-3)/Fever >100.5/GOMEZ Famotidine 20 mg 02/16/19 22:00 02/18/19 09:51 Pepcid IV 20 mg BID MIGUEL Administration Hydromorphone HCl 0.5 mg 02/16/19 17:01 02/17/19 21:24 Dilaudid IV 0.5 mg Q3H PRN Administration Pain , Severe (7-10) Potassium Chloride/Dextrose/Sod Cl 20 meq in 1,000 mls @ 75 mls/hr 02/17/19 13:00 02/18/19 07:43 D5w/Ns W/Kcl 20meq IV 75 mls/hr DIRECT MIGUEL Administration Cefepime HCl 2 gm in 100 mls @ 200 mls/hr 02/17/19 22:00 02/17/19 21:24 Maxipime/Ns 2 Gm/100 Ml IV 200 mls/hr Q12HR MIGUEL Administration Protocol Potassium Phosphate 30 mmol/ 510 mls @ 85 mls/hr 02/18/19 08:29 02/18/19 09: 51 Sodium Chloride IV 02/18/19 14:28 85 mls/hr ONCE ONE Administration Ondansetron HCl 4 mg 02/16/19 19:42 Zofran IV Q8H PRN Nausea And Vomiting Oxycodone/Acetaminophen 1 tab 02/16/19 19:42 Percocet 5/325 PO Q6H PRN Pain, Moderate (4-6) Sodium Chloride 10 ml 02/16/19 22:00 02/18/19 09:51 Sodium Chloride Flush Syringe 10 Ml IV 10 ml BID MIGUEL Administration Sodium Chloride 10 ml 02/16/19 19:42 Sodium Chloride Flush Syringe 10 Ml IV PRN PRN LINE FLUSH
--- NOTE | 2019-02-18 11:24 | Operative Report ---
Operative Report Operative Report: Exam: Ultrasound and fluoroscopic guided placement of left nephrostomy tube Clinical indication: Patient with obstructive left ureteropelvic stone and hydronephrosis Date: 02/18/2019 Procedure: Following an explanation of the risks, benefits and alternatives; written informed consent was obtained. The patient was brought to the angiographic suite and placed in prone position on the examination table. Initial ultrasound evaluation of his back demonstrated moderate left hydronephrosis. The patient's left back and flank were prepped and draped in the usual sterile fashion. 1% lidocaine was used for anesthesia. Under ultrasound guidance, a 15 cm 21-gauge needle was advanced into a posterior medial calyx. A 0.018 R was advanced centrally into the renal pelvis however would not pass the stone. The needle was removed and an Accu stick transition dilator placed over the guidewire and advanced to the renal pelvis. Contrast was then injected through the transition dilator which demonstrated appropriate positioning and also an obstructing left ureteropelvic stone. The 0.018 guidewire was exchanged for a 0.035 advantage guidewire. The guidewire was then advanced and manipulated pasty obstructing stone into the bladder. The transition dilator was removed and a vertebral catheter advanced over the guidewire. The vertebral catheter was advanced into the bladder and the guidewire removed. Contrast was injected to document appropriate positioning within the bladder. Following serial dilation over the guidewire under fluoroscopy, an 8 [place] nephrostomy tube was advanced over the guidewire under fluoroscopy. The guidewire and trocar were removed. The pigtail was formed. Contrast was then injected which demonstrated appropriate positioning just proximal to the renal pelvis. The catheter was securely fastened to the skin surface using 2-0 Ethilon suture and a StatLock device. A sterile dressing was then applied. The catheter was then placed to dependent drainage. The patient tolerated the procedure well. There were no immediate post procedure complications. Conscious sedation was performed the guidance of radiologic nursing. Continuous cardiopulmonary monitoring was utilized. Impression: 1) Ultrasound and fluoroscopic guided placement of 8 [place]inese nephrostomy tube into the left renal pelvis.2) Nephrostogram demonstrating moderate hydronephrosis and an obstructing stone at the left ureteropelvic junction.
[2019-02-18] MEDS: DILAUDID IV PRN (11:45)
--- NOTE | 2019-02-18 11:48 | Consultation ---
History of Present Illness - Reason for Consult Consult date: 02/18/19 - History of Present Illness NEW TO OUR SERVICE The patient is a 39-year-old male with no significant past medical history presented to the emergency room with left-sided flank pain and associated nausea. He was recently given an antibiotic for a possible UTI after he was seen with similar symptoms at Urgent Care. CT scan here revealed left-sided obstructing stone (2.8CM) . Patient was also found to have leukocytosis with concerns for sepsis. There was also concern for left-sided pneumonia. Patient was empirically started on IV cefepime and vancomycin. Infectious diseases was consulted for additional recommendations(DR. LUKE). Had a fever of 102F on admission. Now afebrile. family at bedside (also spoke with Josefina by phone) explained will go home with tube---stone streatment later abd soft medicated by nurse prec tube---pink urine, no clots A/p LEFT RENAL STONE S/P NEPHROSTOMY TUBE (DR. BARRAGAN 02-17-19) HOME WITH PERC TUBE & ABX WHEN OK WITH ID WILL NEED OUTPT (ESWL, PERCUTANEOUS NEPHROLITHOTOMY, ETC) STONE TREATMENT Medications and Allergies Allergies Allergy/AdvReac Type Severity Reaction Status Date / Time No Known Allergies Allergy Unverified 02/16/19 10:17 Home Medications Medication Instructions Recorded Confirmed Last Taken Type No Known Home Medications [No 02/16/19 02/16/19 Unknown History Reported Home Medications] Active Meds: Active Medications Acetaminophen (Tylenol) 650 mg PO Q4H PRN PRN Reason: Pain MILD(1-3)/Fever >100.5/GOMEZ Famotidine (Pepcid) 20 mg IV BID MIGUEL Last Admin: 02/18/19 09:51 Dose: 20 mg Documented by: Hydromorphone HCl (Dilaudid) 0.5 mg IV Q3H PRN PRN Reason: Pain , Severe (7-10) Last Admin: 02/17/19 21:24 Dose: 0.5 mg Documented by: Potassium Chloride/Dextrose/Sod Cl (D5w/Ns W/Kcl 20meq) 20 meq in 1,000 mls @ 75 mls/hr IV DIRECT MIGUEL Last Admin: 02/18/19 07:43 Dose: 75 mls/hr Documented by: Cefepime HCl (Maxipime/Ns 2 Gm/100 Ml) 2 gm in 100 mls @ 200 mls/hr IV Q12HR MIGUEL; Protocol Last Admin: 02/17/19 21:24 Dose: 200 mls/hr Documented by: Potassium Phosphate 30 mmol/ (Sodium Chloride) 510 mls @ 85 mls/hr IV ONCE ONE Stop: 02/18/19 14:28 Last Admin: 02/18/19 09:51 Dose: 85 mls/hr Documented by: Ondansetron HCl (Zofran) 4 mg IV Q8H PRN PRN Reason: Nausea And Vomiting Oxycodone/Acetaminophen (Percocet 5/325) 1 tab PO Q6H PRN PRN Reason: Pain, Moderate (4-6) Sodium Chloride (Sodium Chloride Flush Syringe 10 Ml) 10 ml IV BID MIGUEL Last Admin: 02/18/19 09:51 Dose: 10 ml Documented by: Sodium Chloride (Sodium Chloride Flush Syringe 10 Ml) 10 ml IV PRN PRN PRN Reason: LINE FLUSH Exam - Constitutional Vitals: Temp Pulse Resp BP Pulse Ox 99.7 F H 87 20 132/87 94 02/18/19 05:33 02/18/19 05:33 02/18/19 05:33 02/18/19 05:33 02/18/19 05:33 Results - Labs CBC & Chem 7: 02/18/19 05:27 02/18/19 05:27 Labs: Abnormal lab results 02/18/19 02/18/19 Range/Units 05:27 05:27 WBC 13.8 H (4.5-11.0) K/mm3 Potassium 3.1 L (3.6-5.0) mmol/L BUN 7 L (9-20) mg/dL Creatinine 0.6 L (0.8-1.5) mg/dL Glucose 115 H (75-100) mg/dL Phosphorus 2.20 L (2.5-4.5) mg/dL
[2019-02-18] MEDS: MAXIPIME/NS 2 GM/100 ML 2 GM/100 ML BAG IV SCH ×2 (12:15→22:33)
[2019-02-18] MEDS ORDERED: LOPRESSOR IV ONE (12:46)
--- NOTE | 2019-02-18 12:47 | Event Note ---
Date: 02/18/19 Code MET called for tachycardia, decreased Oxygen sat. Patient denies chest pain. Will get chest x ray, ABG, CBC,BMP. and d-dimer. EKG shows sinus tachy 152, bld glucose 123. Will transfer to Tele. Give metoprolol 5mg iv x 1 dose.
[2019-02-18] MEDS ORDERED: NACL 0.9% 1000 ML 1,000 ML IV ONE (13:04)
[2019-02-18 13:29] LABS: Hematocrit 43.2 % (35.5-45.6); Hemoglobin 14.4 gm/dl (11.8-15.2); Mean Corpuscular HGB Conc 33 % (32-34); Mean Corpuscular Volume 95 fl (84-94); Platelet Count 276 K/mm3 (140-440); Red Blood Count 4.57 M/mm3 (3.65-5.03); Red Cell Distribution Width 14.2 % (13.2-15.2)
--- NOTE | 2019-02-18 13:54 | XRay Report ---
PROCEDURE: XR CHEST 1V AP TECHNIQUE: Chest radiograph single view. HISTORY: Hypoxia COMPARISONS: None . FINDINGS: Single frontal view of the chest was acquired. The heart is normal in size. There is blunti ng of the left costophrenic sulcus likely small pleural effusion. The right lung appears clear. IMPRESSION: Suspected small left pleural effusion This document is electronically signed by Lenny Youngblood MD., February 18 2019 01:53:00 PM ET
[2019-02-18 14:43] LABS: BUN/Creatinine Ratio 13; Blood Urea Nitrogen 8 mg/dL (9-20); Calcium 8.5 mg/dL (8.4-10.2); Hemolysis Index 48
[2019-02-18 16:43] LABS: Hematocrit 41.8 % (35.5-45.6); Hemoglobin 14.1 gm/dl (11.8-15.2)
[2019-02-18 16:50] LABS: INR 1.23 (0.87-1.13)
[2019-02-18 17:00] LABS: Partial Thromboplastin Time 29.5 Sec. (24.2-36.6)
--- NOTE | 2019-02-18 17:33 | Event Note ---
Date: 02/18/19 Patient has bilateral pulmonary embolism. Discussed with Dr. Lewis. Start heparin drip. He states he will come in to do thrombectomy and EKOS catheter placement and thrombolysis. I discussed with patient's Nurse.
[2019-02-18] MEDS: HEPARIN/ 0.45% NACL-25,000 UNIT/500 ML 25,000 UNIT/500 ML BAG IV SCH (17:45)
[2019-02-18] MEDS ORDERED: VERSED ONE (18:15)
[2019-02-18] MEDS ORDERED: SUBLIMAZE ONE (18:16)
--- NOTE | 2019-02-18 18:31 | Cat Scan Report ---
PROCEDURE: CT ANGIO CHEST TECHNIQUE: Computerized tomographic angiography of the chest was performed after the IV injection of iodinated nonionic contrast including image processing. The image data was postprocessed using 2-di mensional multiplanar reformatted (MPR) and 3-dimensional (MIP and/or volume rendered) techniques. Au tomated exposure control, adjustment of mA and/or kV according to patient size, or iterative reconstr uction dose optimization techniques were utilized. CT DOSE LENGTH PRODUCT: 562.2 mGycm HISTORY: d-dimer > 10,000, respiratory distress COMPARISONS: None . FINDINGS: Heart and pericardium: No pericardial effusion or thickening. Thoracic aorta: Normal. Pulmonary vasculature: There are extensive bilateral pulmonary emboli, including within the right pul monary artery and proximal branches involving all the lobes bilaterally. Emboli extend into mid to di stal branches as well bilateral. Lymph nodes: No enlarged thoracic lymph nodes. Lungs: There is airspace consolidation in the left lower lobe with decreased enhancement seen medial ly. Cannot exclude pulmonary infarct. There may be underlying pneumonia.. Pleural space: Trace left pleural effusion. Musculoskeletal structures: No significant abnormality. Upper abdominal structures: No significant abnormality. IMPRESSION: Extensive bilateral pulmonary emboli. There is left lower lobe airspace consolidation with decreased enhancement noted medially, concerning for pulmonary infarction. There may be underlying pneumonia . This document is electronically signed by Valarie Brooks MD., February 18 2019 06:29:11 PM ET
--- NOTE | 2019-02-18 18:57 | Event Note ---
Date: 02/18/19 Patient is extremely tachycardic, hypertensive and on 15 L by face mask. He has a d-dimer of greater than 10,000. A CT of the patient's chest was ordered and performed which demonstrates acute occlusive clot within the patient's right main pulmonary artery, additionally the patient has older clot within his left lower lobe pulmonary arteries with associated atelectasis and pulmonary infarct. Patient was previously treated earlier today for left nephrolithiasis with an 8 Swedish nephrostomy tube placed into his left kidney. Because of this, the patient is not a candidate for thrombolytic therapy. Additionally, given his very recent placement of his nephrostomy tube, the patient's heparin drip will cause persistent bleeding from the kidney into the nephrostomy tube. Typically after placement of the nephrostomy tube, blood tinged urine will clear within 24-48 hours however, given the need for anticoagulation, this may be persistent and require serial monitoring with transfusions as needed. A review of the CT scan demonstrates significant right heart strain with ventricular septal bowing and consistent with right heart dysfunction. Because of the patient's clinical state and evidence of right heart dysfunction, the patient was brought to the [facility] for embolectomy using an Hyphen 8ari Flowtriever. The patient is Welsh-speaking only. The clinical orthoptist line was utilized and the procedure explained in detail. The patient refused repeatedly. I emphasized repeatedly that should the patient not undergo this procedure he could giving his clot burden. The patient continued to refuse stating that he did not want any more procedures right now and that his fate is in God's hands. The patient has intact mental status and is awake alert and oriented 3. Given the patient's refusal of this procedure, the patient was removed from the procedural suite.
--- NOTE | 2019-02-18 19:39 | Event Note ---
Date: 02/18/19 Keep patient NPO after MN except sips of water with meds. Although patient has initially declined probable life saving procedure, he may reconsider tomorrow. His prognosis is poor if he continues to decline appropriate medical procedures.
[2019-02-18 19:53] LABS: Chol/HDL Ratio 4.19 %
[2019-02-19] MEDS ORDERED: HEPARIN 10,000 UNITS/10 ML IV ONE (01:30)
[2019-02-19 04:24] LABS: Hematocrit 40.7 % (35.5-45.6); Hemoglobin 13.7 gm/dl (11.8-15.2); Mean Corpuscular HGB Conc 34 % (32-34); Mean Corpuscular Volume 95 fl (84-94); Platelet Count 265 K/mm3 (140-440)
[2019-02-19 04:36] LABS: BUN/Creatinine Ratio 13; Blood Urea Nitrogen 8 mg/dL (9-20); Calcium 8.3 mg/dL (8.4-10.2); Hemolysis Index 1
[2019-02-19] MEDS: DILAUDID IV PRN (06:26)
[2019-02-19] MEDS: D5W/NS W/KCL 20MEQ 20 MEQ/1,000 ML BAG IV SCH (06:26)
[2019-02-19] MEDS: SODIUM CHLORIDE FLUSH SYRINGE 10 ML IV SCH ×3 (08:55→21:41)
--- NOTE | 2019-02-19 09:16 | Progress Note ---
Assessment and Plan Cultures: 02/16/2019 blood culture: No growth 02/16/2019 urine culture: <10 mixed A/P: 39/M with no PMH, admitted with: 1) Sepsis: fever resolved, leukocytosis improving; likely secondary to left- sided pyelonephritis with nephrolithiasis +/- large right sided PE 2) Left-sided pyelonephritis with nephrolithiasis: s/p IR 8 Greenlandic nephrostomy tube placed into his left kidney. Urine culture no impressive. 3) ?LLL pneumonia v/s lung infarct 4) Large right acute occlusive PE at right main pulmonary artery and left lower lobe PE with associated atelectasis and pulmonary infarct: patient with evidence of right heart dysfunction. 5) Acute respiratory failure: due to large PE, not a candidate for thrombolytic therapy due to recent placement of his nephrostomy tube. 6) HTN urgency Recs: Continue IV Cefepime 2 gm q12 hrs D4 of 7 [employer] [address] Haynes at bedside with me. I discussed with patient need for emergent procedure and he agreed to proceed with procedure to save his life as explained by Dr Haynes. Follow-up cultures Will follow. Krupa Santana MD Infectious Diseases Journalism Professor [facility] M [phone] O [phone] Subjective Date of service: 02/19/19 Principal diagnosis: obstructing left ureteropelvic stone Interval history: Patient is on HFO2, reports SOB and left flank pain better. Alert. No fever last 24h. SOB: +left leg pain, +SOB, + fever, denies N/V/D Objective - Exam Narrative Exam: Constitutional: Alert, cooperative. No acute distress Head, Ears, Nose: Normocephalic, atraumatic. External ears, nose normal Eyes: Conjunctivae/corneas clear. No icterus. No ptosis. Neck: Supple, no meningeal signs Oral: no thrush. Cardiovascular: S1, S2 normal. Respiratory: CTA gigi GI: Soft, non-tender; bowel sounds normal. No peritoneal signs. No Left CVA tenderness Musculoskeletal: No pedal edema, no cyanosis. Skin: No rash or abscess Hem/Lymphatic: No palpable cervical or supraclavicular nodes. No lymphangitis Psych: Mood ok. Affect normal Neurological: Awake, alert, oriented. No gross abnormality - Constitutional Vitals: Vital Signs Temp Pulse Resp BP Pulse Ox 98.9 F 102 H 27 H 135/92 100 02/19/19 08:00 02/19/19 09:00 02/19/19 09:00 02/19/19 09:00 02/19/19 09:00 Temperature -Last 24 Hours Temperature 98.9 F Temperature 97.6 F Temperature 97.6 F Temperature 97.6 F Temperature 98.9 F Temperature 97.8 F - Labs CBC & Chem 7: 02/19/19 03:39 02/19/19 03:39 Labs: Abnormal lab results 02/18/19 02/18/19 02/18/19 Range/Units 13:17 13:17 13:17 WBC 18.4 H (4.5-11.0) K/mm3 MCV 95 H (84-94) fl PT (12.2-14.9) Sec. INR (0.87-1.13) D-Dimer > 34528 H (0-234) ng/mlDDU Heparin Anti-Xa Level (0.3-0.7) U.I./ml POC ABG pH (7.35-7.45) POC ABG pCO2 (35-45) POC ABG pO2 (80-105) Potassium (3.6-5.0) mmol/L BUN 8 L (9-20) mg/dL Creatinine 0.6 L (0.8-1.5) mg/dL Glucose 118 H (75-100) mg/dL POC Glucose (70-105) Calcium (8.4-10.2) mg/dL Troponin T (0.00-0.029) ng/mL HDL Cholesterol (40-59) mg/dL 02/18/19 02/18/19 02/18/19 Range/Units 14:29 15:47 18:05 WBC (4.5-11.0) K/mm3 MCV (84-94) fl PT 15.2 H (12.2-14.9) Sec. INR 1.23 H (0.87-1.13) D-Dimer (0-234) ng/mlDDU Heparin Anti-Xa Level (0.3-0.7) U.I./ml POC ABG pH 7.480 H (7.35-7.45) POC ABG pCO2 32.1 L (35-45) POC ABG pO2 65 L (80-105) Potassium (3.6-5.0) mmol/L BUN (9-20) mg/dL Creatinine (0.8-1.5) mg/dL Glucose (75-100) mg/dL POC Glucose (70-105) Calcium (8.4-10.2) mg/dL Troponin T 0.057 H (0.00-0.029) ng/mL HDL Cholesterol 26 L (40-59) mg/dL 02/18/19 02/18/19 02/19/19 Range/Units 21:02 22:46 01:58 WBC (4.5-11.0) K/mm3 MCV (84-94) fl PT (12.2-14.9) Sec. INR (0.87-1.13) D-Dimer (0-234) ng/mlDDU Heparin Anti-Xa Level 0.10 L (0.3-0.7) U.I./ml POC ABG pH (7.35-7.45) POC ABG pCO2 (35-45) POC ABG pO2 238 H (80-105) Potassium (3.6-5.0) mmol/L BUN (9-20) mg/dL Creatinine (0.8-1.5) mg/dL Glucose (75-100) mg/dL POC Glucose 122 H (70-105) Calcium (8.4-10.2) mg/dL Troponin T (0.00-0.029) ng/mL HDL Cholesterol (40-59) mg/dL 02/19/19 02/19/19 02/19/19 Range/Units 03:39 03:39 06:39 WBC 13.4 H (4.5-11.0) K/mm3 MCV 95 H (84-94) fl PT (12.2-14.9) Sec. INR (0.87-1.13) D-Dimer (0-234) ng/mlDDU Heparin Anti-Xa Level (0.3-0.7) U.I./ml POC ABG pH (7.35-7.45) POC ABG pCO2 (35-45) POC ABG pO2 (80-105) Potassium 3.0 L (3.6-5.0) mmol/L BUN 8 L (9-20) mg/dL Creatinine 0.6 L (0.8-1.5) mg/dL Glucose 130 H (75-100) mg/dL POC Glucose 122 H (70-105) Calcium 8.3 L (8.4-10.2) mg/dL Troponin T (0.00-0.029) ng/mL HDL Cholesterol (40-59) mg/dL 02/19/19 02/19/19 Range/Units 07:28 08:10 WBC (4.5-11.0) K/mm3 MCV (84-94) fl PT (12.2-14.9) Sec. INR (0.87-1.13) D-Dimer (0-234) ng/mlDDU Heparin Anti-Xa Level 0.22 L (0.3-0.7) U.I./ml POC ABG pH (7.35-7.45) POC ABG pCO2 (35-45) POC ABG pO2 (80-105) Potassium (3.6-5.0) mmol/L BUN (9-20) mg/dL Creatinine (0.8-1.5) mg/dL Glucose (75-100) mg/dL POC Glucose 123 H (70-105) Calcium (8.4-10.2) mg/dL Troponin T (0.00-0.029) ng/mL HDL Cholesterol (40-59) mg/dL
--- NOTE | 2019-02-19 09:18 | Vascular Lab Report ---
PROCEDURE: VL VENOUS DUPLEX LE BILAT TECHNIQUE: Grayscale, color flow and spectral waveform images were obtained of bilateral lower extre mities. HISTORY: pe, assess for dvt COMPARISON: None FINDINGS: There is no deep venous thrombosis seen in the left or right lower extremity. Flow is demonstrated by color flow and spectral waveform imaging. There is appropriate wall compression and augmentation. There is also no superficial venous thrombus seen. IMPRESSION: There is no evidence for DVT in either right or left lower extremity. This document is electronically signed by Iris Fritz MD., February 19 2019 09:16:07 AM ET
[2019-02-19] MEDS: PEPCID IV SCH ×2 (09:38→21:40)
[2019-02-19] MEDS: KCL 10MEQ/100ML 10 MEQ/100 ML BAG IV SCH ×4 (10:57→21:46)
[2019-02-19] MEDS ORDERED: MAGNESIUM SULFATE 3 GM in NACL 0.9% 100 ML IV ONE (11:00)
--- NOTE | 2019-02-19 11:57 | Consultation ---
History of Present Illness Consult date: 02/19/19 Reason for consult: pulmonary embolism History of present illness: Called to evaluate case of a 39-year-old , admitted [place] the hospital [place] due to left kidney stones. The patient underwent a left nephrostomy for relief of obstruction. He started with breathing difficulty some days later and a CT scan shows evidence of pulmonary embolism. He had been seen by interventional radiology and an embolectomy was recommended, since per notes, " CT of the patient's chest was ordered and performed which demonstrates acute occlusive clot within the patient's right main pulmonary artery, additionally the patient has older clot within his left lower lobe pulmonary arteries with associated atelectasis and pulmonary infarct. In view of left nephrolithiasis with an 8 English nephrostomy tube placed into his left kidney, deemed not a c andidate for thrombolytic therapy". Also reportedly, " review of the CT scan demonstrates significant right heart strain with ventricular septal bowing and consistent with right heart dysfunction. Because of the patient's clinical state and evidence of right heart dysfunction, the patient was brought to the [facility] for embolectomy using an [employer] Flowtriever. The patient is Moldovan-speaking only. The motion study technician line was utilized and the procedure explained in detail. The patient refused repeatedly". The patient had been transferred to the ICU for further care. He was initiated on Venturi mask 50%. At the time of my examination, bedtime oximetry is 100%, pulse is 107/min. He has no hemoptysis or bleeding. He has no chest pain. He had discussed his case in [place] with Dr. King and he had agreed to embolectomy this morning. is at the bedside. No visual complaints. He had no prior history of pulmonary embolism. He is a prior smoker. Past History Past Medical History: No medical history Medications and Allergies Allergies Allergy/AdvReac Type Severity Reaction Status Date / Time No Known Allergies Allergy Unverified 02/16/19 10:17 Home Medications Medication Instructions Recorded Confirmed Last Taken Type No Known Home Medications [No 02/16/19 02/16/19 Unknown History Reported Home Medications] Active Meds: Active Medications Acetaminophen (Tylenol) 650 mg PO Q4H PRN PRN Reason: Pain MILD(1-3)/Fever >100.5/GOMEZ Famotidine (Pepcid) 20 mg IV BID MIGUEL Last Admin: 02/19/19 09:38 Dose: 20 mg Documented by: Hydromorphone HCl (Dilaudid) 0.5 mg IV Q3H PRN PRN Reason: Pain , Severe (7-10) Last Admin: 02/19/19 06:26 Dose: 0.5 mg Documented by: Potassium Chloride/Dextrose/Sod Cl (D5w/Ns W/Kcl 20meq) 20 meq in 1,000 mls @ 75 mls/hr IV DIRECT MIGUEL Last Admin: 02/19/19 06:26 Dose: 75 mls/hr Documented by: Cefepime HCl (Maxipime/Ns 2 Gm/100 Ml) 2 gm in 100 mls @ 200 mls/hr IV Q12HR MIGUEL; Protocol Last Admin: 02/18/19 22:33 Dose: 200 mls/hr Documented by: Heparin Sodium/Sodium Chloride (Heparin/ 0.45% Nacl-25,000 Unit/500 Ml) 25,000 unit in 500 mls @ 21 mls/hr IV TITR MIGUEL; Protocol Last Titration: 02/19/19 08:58 Dose: 1,300 units/hr, 26 mls/hr Documented by: Magnesium Sulfate 3 gm/ Sodium (Chloride) 106 mls @ 35.333 mls/hr IV ONCE ONE Stop: 02/19/19 13:59 Potassium Chloride (Kcl 10meq/100ml) 10 meq in 100 mls @ 100 mls/hr IV Q1H MIGUEL Stop: 02/19/19 14:59 Last Admin: 02/19/19 10:57 Dose: 100 mls/hr Documented by: Ondansetron HCl (Zofran) 4 mg IV Q8H PRN PRN Reason: Nausea And Vomiting Oxycodone/Acetaminophen (Percocet 5/325) 1 tab PO Q6H PRN PRN Reason: Pain, Moderate (4-6) Sodium Chloride (Sodium Chloride Flush Syringe 10 Ml) 10 ml IV BID MIGUEL Last Admin: 02/19/19 09:38 Dose: 10 ml Documented by: Sodium Chloride (Sodium Chloride Flush Syringe 10 Ml) 10 ml IV PRN PRN PRN Reason: LINE FLUSH Review of Systems Constitutional: no weight loss, no weight gain, no fever, no night sweats Cardiovascular: chest pain, palpitations, shortness of breath, dyspnea on exertion, no orthopnea, no edema, no syncope Respiratory: shortness of breath, dyspnea on exertion, no hemoptysis Genitourinary Male: dysuria, flank pain Integumentary: no rash, no pruritis, no redness Neurological: no head injury, no transient paralysis, no paralysis, no weakness, no parathesias, no numbness, no seizures, no syncope, no headaches Psychiatric: no anxiety, no memory loss Hematologic/Lymphatic: no easy bruising, no easy bleeding, no lymphadenopathy, no lymphedema, no thrombophilia Physical Examination Vital signs: Vital Signs Temp Pulse Resp BP Pulse Ox 102.8 F H 125 H 20 143/89 94 02/16/19 10:15 02/16/19 10:15 02/16/19 10:15 02/16/19 10:15 02/16/19 10:15 General appearance: no acute distress, alert Eyes: non-icteric ENT: oropharynx moist Neck: supple, no JVD Ascultation: Left: diminished breath sounds, egophony, Bilateral: clear Cardiovascular: regular rate and rhythm (mild tachycardia) Integumentary: normal Extremities: no cyanosis, no edema Musculoskeletal: no deformities normal mental status, non-focal exam Results - Laboratory Findings CBC and BMP: 02/19/19 03:39 02/19/19 03:39 ABG POC ABG pH 7.439 (7.35-7.45) 02/18/19 21:02 POC ABG pCO2 37.8 (35-45) 02/18/19 21:02 POC ABG pO2 238 (80-105) H 02/18/19 21:02 POC ABG HCO3 25.6 (22-26 mml/L) 02/18/19 21:02 POC ABG Total CO2 27 (23-27mmol/L) 02/18/19 21:02 POC ABG O2 Sat 100 02/18/19 21:02 PT/INR, D-dimer PT 15.2 Sec. (12.2-14.9) H 02/18/19 15:47 INR 1.23 (0.87-1.13) H 02/18/19 15:47 > 91770 ng/mlDDU (0-234) H 02/18/19 13:17 Abnormal lab findings: Abnormal Labs 02/16/19 02/16/19 02/16/19 10:34 10:34 10:34 WBC 18.4 H Hgb 15.8 H Hct 46.7 H MCV Lymph % (Auto) 9.4 L [place] % (Auto) 8.2 H [place] # 1.5 H Seg Neutrophils % 81.9 H Seg Neutrophils # 15.1 H PT INR D-Dimer Heparin Anti-Xa Level POC ABG pH POC ABG pCO2 POC ABG pO2 Sodium 131 L Potassium 3.4 L Chloride 90.3 L BUN Creatinine Glucose 128 H POC Glucose Calcium Phosphorus Direct Bilirubin 0.4 H ALT 62 H 62 H Troponin T Total Protein 8.7 H 8.7 H Albumin 3.4 L 3.4 L HDL Cholesterol Urine WBC (Auto) 02/16/19 02/17/19 02/17/19 13:16 05:45 05:45 WBC 14.7 H Hgb Hct MCV 95 H Lymph % (Auto) 12.7 L [place] % (Auto) 8.4 H [place] # 1.2 H Seg Neutrophils % 77.9 H Seg Neutrophils # 11.5 H PT INR D-Dimer Heparin Anti-Xa Level POC ABG pH POC ABG pCO2 POC ABG pO2 Sodium Potassium 3.3 L Chloride BUN Creatinine 0.7 L Glucose 111 H POC Glucose Calcium 8.0 L Phosphorus Direct Bilirubin ALT Troponin T Total Protein Albumin 2.8 L HDL Cholesterol Urine WBC (Auto) 19.0 H 02/18/19 02/18/19 02/18/19 05:27 05:27 13:17 WBC 13.8 H 18.4 H Hgb Hct MCV 95 H Lymph % (Auto) [place] % (Auto) [place] # Seg Neutrophils % Seg Neutrophils # PT INR D-Dimer Heparin Anti-Xa Level POC ABG pH POC ABG pCO2 POC ABG pO2 Sodium Potassium 3.1 L Chloride BUN 7 L Creatinine 0.6 L Glucose 115 H POC Glucose Calcium Phosphorus 2.20 L Direct Bilirubin ALT Troponin T Total Protein Albumin HDL Cholesterol Urine WBC (Auto) 02/18/19 02/18/19 02/18/19 13:17 13:17 14:29 WBC Hgb Hct MCV Lymph % (Auto) [place] % (Auto) [place] # Seg Neutrophils % Seg Neutrophils # PT INR D-Dimer > 45594 H Heparin Anti-Xa Level POC ABG pH 7.480 H POC ABG pCO2 32.1 L POC ABG pO2 65 L Sodium Potassium Chloride BUN 8 L Creatinine 0.6 L Glucose 118 H POC Glucose Calcium Phosphorus Direct Bilirubin ALT Troponin T Total Protein Albumin HDL Cholesterol Urine WBC (Auto) 02/18/19 02/18/19 02/18/19 15:47 18:05 21:02 WBC Hgb Hct MCV Lymph % (Auto) [place] % (Auto) [place] # Seg Neutrophils % Seg Neutrophils # PT 15.2 H INR 1.23 H D-Dimer Heparin Anti-Xa Level POC ABG pH POC ABG pCO2 POC ABG pO2 238 H Sodium Potassium Chloride BUN Creatinine Glucose POC Glucose Calcium Phosphorus Direct Bilirubin ALT Troponin T 0.057 H Total Protein Albumin HDL Cholesterol 26 L Urine WBC (Auto) 02/18/19 02/19/19 02/19/19 22:46 01:58 03:39 WBC 13.4 H Hgb Hct MCV 95 H Lymph % (Auto) [place] % (Auto) [place] # Seg Neutrophils % Seg Neutrophils # PT INR D-Dimer Heparin Anti-Xa Level 0.10 L POC ABG pH POC ABG pCO2 POC ABG pO2 Sodium Potassium Chloride BUN Creatinine Glucose POC Glucose 122 H Calcium Phosphorus Direct Bilirubin ALT Troponin T Total Protein Albumin HDL Cholesterol Urine WBC (Auto) 02/19/19 02/19/19 02/19/19 03:39 06:39 07:28 WBC Hgb Hct MCV Lymph % (Auto) [place] % (Auto) [place] # Seg Neutrophils % Seg Neutrophils # PT INR D-Dimer Heparin Anti-Xa Level POC ABG pH POC ABG pCO2 POC ABG pO2 Sodium Potassium 3.0 L Chloride BUN 8 L Creatinine 0.6 L Glucose 130 H POC Glucose 122 H 123 H Calcium 8.3 L Phosphorus Direct Bilirubin ALT Troponin T Total Protein Albumin HDL Cholesterol Urine WBC (Auto) 02/19/19 02/19/19 08:10 10:43 WBC Hgb Hct MCV Lymph % (Auto) [place] % (Auto) [place] # Seg Neutrophils % Seg Neutrophils # PT INR D-Dimer Heparin Anti-Xa Level 0.22 L POC ABG pH POC ABG pCO2 POC ABG pO2 Sodium Potassium Chloride BUN Creatinine Glucose POC Glucose 137 H Calcium Phosphorus Direct Bilirubin ALT Troponin T Total Protein Albumin HDL Cholesterol Urine WBC (Auto) - Diagnostic Findings Chest x-ray: report reviewed, image reviewed CT scan - chest: report reviewed, image reviewed Assessment and Plan Acute pulmonary embolism, intermediate with evidence of ventricular strain. Hypoxemia respiratory failure. Secondary to PE and atelectasis/infarction Atelectasis versus infarction left base. Left nephrostomy Nephrolithiasis Hypokalemia Recommendations I agree with IV heparin Follow IV heparin protocol Periodic H&H check Watch for bleeding Re: Embolectomy, the patient is at intermediate mortality risk, based on clinical data. I reviewed the procedure may be beneficial Additional option (although not therapeutic), in case anticoagulation cannot be continued, will be to place up removal inferior vena cava filter. This ifthe source is from return renal circulation or below. Potassium replacement Incentive spirometer for atelectasis management I discussed on interview the patient's fully in [place] and in detail. At this point, they both understand the nature of the illness and he was to proceed with embolectomy has described. Discussed in detail with patient and . All questions answered. Thanks Critical care time was 31 minutes of [id number] evaluation and coordination of care
[2019-02-19] MEDS ORDERED: SUBLIMAZE ONE (12:51)
[2019-02-19] MEDS ORDERED: VERSED ONE (12:51)
[2019-02-19] MEDS ORDERED: HEPARIN/NS 5000 UNIT/500ML(CATH LAB) 1,000 ML IR ONE (12:52)
[2019-02-19] MEDS: XYLOCAINE 2% INFILTRATI ONE ×2 (13:14→14:39)
[2019-02-19] MEDS: HEPARIN 10,000 UNITS/10 ML ONE ×2 (13:26→14:09)
[2019-02-19] MEDS ORDERED: XYLOCAINE 1%/ EPI 1:100,000 INFILTRATI ONE (14:41)
--- NOTE | 2019-02-19 14:57 | Post Operative Note ---
Date of procedure: 02/19/19 Pre-op diagnosis: Submassive pulmonary embolism Post-op diagnosis: same Findings: Successful thrombectomy of the right lobar and main pulmonary artery pulmonary embolisms Procedure: 1. Ultrasound guided access of the right common femoral vein 2. Selection of the right atrium, right ventricle, and main pulmonary artery. 3. Selection of the right main pulmonary artery with angiography 4. Percutaneous embolectomy with 20 Fr Flowtriever device of the right lower lobar pulmonary artery 5. Percutaneous embolectomy with 20 Fr Flowtriever device of the right distal main pulmonary artery 6. Percutaneous embolectomy with 20 Fr Flowtriever device of the right upper pulmonary artery 7. Flowtriever M and S embolectomy catheter used in the right middle lobe pulmonary artery 8. Percutaneous embolectomy with 20 Fr Flowtriever device of the right middle lobe pulmonary artery 9. Percutaneous embolectomy with 20 Fr Flowtriever device of the right lower lobe pulmonary artery Anesthesia: local (w/ conscious sedation) Surgeon: ROCK ROMERO Estimated blood loss: minimal Condition: stable Disposition: floor
--- NOTE | 2019-02-19 14:57 | Operative Report ---
Operative Report Operative Report: EXAM: 1. Ultrasound guided access of the right common femoral vein 2. Selection of the right atrium, right ventricle, and main pulmonary artery. 3. Selection of the right main pulmonary artery with angiography 4. Percutaneous embolectomy with 20 Fr Flowtriever device of the right lower lobar pulmonary artery 5. Percutaneous embolectomy with 20 Fr Flowtriever device of the right distal main pulmonary artery 6. Flowtriever M and S embolectomy catheter used in the right middle lobe pulmonary artery 7. Percutaneous embolectomy with 20 Fr Flowtriever device of the right middle lobe pulmonary artery 8. Percutaneous embolectomy with 20 Fr Flowtriever device of the right upper pulmonary artery 9. Percutaneous embolectomy with 20 Fr Flowtriever device of the right lower lobe pulmonary artery DATE: 02/19/19 SUPERINTENDENT PRODUCTION: ROCK ROMERO MD INDICATION: Submassive pulmonary embolism with troponin leak, heart rate elevated to 160, on 15 L Ventimask with some improvement overnight who requires pulmonary embolectomy to achieve best chance of survival. Risks, benefits, and alternatives discussed with the patient. MEDICATIONS: Please see nursing report for full details. DEVICES: 20 [place] Flowtriever device Flowtriever M Flowtriever S CONTRAST: Please see lab tester report for full details. PROCEDURE: The risks, benefits, and alternatives were discussed with the patient; written informed consent was obtained. The groins were prepped and draped in sterile fashion. Ultrasound was used to identify the right common femoral vein which was patent. Under direct ultrasound guidance, the common femoral vein was accessed with a 21-gauge microvolt puncture needle. 0.018 inch wire was passed into the IVC. Fluoroscopy was used to identify the puncture site which was appropriate, over the femoral head. Needle was exchanged for transitional dilator. Wire was exchanged for 0.035 inch wire. Transitional dilator was exchanged for 6 [place] sheath. ACT was then obtained and after the result was obtained, 6000 units of heparin were administered. Serial dilatation was performed and a 22 [place] Dugger dry seal sheath was advanced over the wire. Afterwards, an angled pigtail was advanced through the sheath and used to select the right atrium, right ventricle, and main pulmonary artery. The right main pulmonary artery was then selected. Cineangiography was performed demonstrating a large right distal main pulmonary embolism with an occlusive pulmonary embolism in the right middle lobar pulmonary artery, and a nearly occlusive pulmonary embolism in the right upper lobar and right lower lobar pulmonary artery. There was also some segmental extension. 20 [place] embolectomy sheath was advanced over the wire and used to select the right lower lobar pulmonary artery. The Inari thrombectomy syringe was attached and thrombectomy was performed retrieving a large amount of thrombus. Afterwards, the embolectomy sheath was used to select the right distal main pulmonary artery. Multiple thrombectomy attempts were performed retrieving some thrombus. Sheath was then used to select the middle lobar pulmonary artery. Embolectomy sheath with syringe was used to perform thrombectomy which was partially successful. Flowtriever M and S discs were then deployed in the right middle lobe pulmonary artery and pulled into the sheath and the sheath was removed over wire. This was performed with each disc. There is some thrombus retrieved. The flushed embolectomy sheath was then readvanced over the wire and used to select the right middle lobar pulmonary artery. Thrombectomy was repeated with the embolectomy sheath achieving a large amount of thrombus removal. The right upper lobar pulmonary artery was selected and thrombectomy was performed with the embolectomy sheath achieving a large amount of thrombus removal. Pigtail catheter was advanced over the wire and angiography was performed demonstrating clearance of thrombus from the right distal main pulmonary artery, upper lobar pulmonary artery, and middle lobar pulmonary artery. There is a piece of thrombus in the lower lobar pulmonary artery which was likely a piece dislodged from the distal main pulmonary artery. The right lower lobar pulmonary artery was selected and thrombectomy was performed achieving removal of a large amount of thrombus. Pigtail catheters advanced over the wire and angiography was again performed demonstrating clearance of thrombus from the right distal main pulmonary artery, upper lobar pulmonary artery, middle lobe or pulmonary artery, and now the lower lobe or pulmonary artery with good filling of the pulmonary circulation. There is a few segmental thrombus noted. At this point, all wires, catheters, and sheaths were removed and the site was pursestring closed with a 0 silk. Pressure was held for 20 minutes. No hematoma. Patient tolerated the procedure well. No immediate postprocedure complication. FINDINGS: Please see procedure note above. IMPRESSION: Successful percutaneous embolectomy with the Inari device as described above.
--- NOTE | 2019-02-19 16:39 | Event Note ---
Date: 02/19/19 Can be transitioned to oral anticoagulation tomorrow. Patient's lack of insurance makes anticoagulation complicated. Will probably need to be trans itioned to coumadin. Will need to have INR checked at [facility] will need to be provided to patient. Recommend anticoagulation for 6 months minimum. Transitioned from Ventimask 15 L to NC after percutaneous pulmonary thrombectomy. Patient is feeling much better. Urine from nephrostomy tube clearing. This is very good considering the patient is on anticoagulation. Will ultimately need to followup with urology for stone removal.
[2019-02-19] MEDS: HEPARIN/ 0.45% NACL-25,000 UNIT/500 ML 25,000 UNIT/500 ML BAG IV SCH (17:54)
[2019-02-19] MEDS: MAXIPIME/NS 2 GM/100 ML 2 GM/100 ML BAG IV SCH (17:54)
--- NOTE | 2019-02-19 18:43 | Progress Note ---
Assessment and Plan Assessment and plan: The high probability of a clinically significant, sudden or life threatening deterioration of the [] system(s) required my full and direct attention, intervention and personal management. The aggregate critical care time was [] minutes. This time is in addition to time spent performing reported procedures but includes the following: [x] Data Review and interpretation x] Patient assessment and monitoring of vital signs [x] Documentation [x] Medication orders and management Total Time Spent with Patient (Minutes): 33 - Patient Problems (1) Abdominal pain Current Visit: Yes Status: Acute Qualifiers: Abdominal location: left upper quadrant Qualified Code(s): R10.12 - Left upper quadrant pain (2) Kidney stone on left side Current Visit: Yes Status: Acute (3) Pulmonary embolism Current Visit: Yes Status: Acute Plan to address problem: Patient status post thrombectomy today. Tolerated procedure well. Change to oral anticoagulant in a.m. Most likely Coumadin secondary to cost effectiveness. (4) Renal stone Current Visit: Yes Status: Acute Plan to address problem: D follow-up with urology upon discharge. History Interval history: Patient presented to ED tachycardia hypoxemia found to have pulmonary embolism started on heparin drip and transferred to the ICU secondary to proximal anemia and burden of pulmonary embolism patient will require thrombectomy at the [facility] with catheter placement. Patient had a successful procedure today and can be placed on oral anticoagulation tomorrow. Hospitalist Physical - Constitutional Vitals: Temp Pulse Resp BP Pulse Ox 98.8 F 102 H 22 126/88 98 02/19/19 15:52 02/19/19 18:11 02/19/19 18:11 02/19/19 18:11 02/19/19 18:11 General appearance: Present: no acute distress - EENT Eyes: Present: PERRL, EOM intact ENT: hearing intact, clear oral mucosa, dentition normal - Neck Neck: Present: supple, normal ROM - Respiratory Respiratory effort: normal Respiratory: bilateral: diminished - Cardiovascular Rhythm: regularly irregular Heart Sounds: Present: S1 & S2 - Extremities Extremities: no ischemia, pulses intact, pulses symmetrical, No edema, normal temperature, normal color - Abdominal General gastrointestinal: soft, non-tender, non-distended, hypoactive bowel sounds, no distended, no rigid, no hepatomegaly, no splenomegaly, no mass, no hernia - Integumentary Integumentary: Present: clear, warm, dry - Psychiatric Psychiatric: appropriate mood/affect, intact judgment & insight, memory intact - Neurologic Neurologic: CNII-XII intact, focal deficits, moves all extremities Results - Labs CBC & Chem 7: 02/19/19 03:39 02/19/19 03:39 Labs: Laboratory Last Values WBC 13.4 K/mm3 (4.5-11.0) H 02/19/19 03:39 RBC 4.30 M/mm3 (3.65-5.03) 02/19/19 03:39 Hgb 13.7 gm/dl (11.8-15.2) 02/19/19 03:39 Hct 40.7 % (35.5-45.6) 02/19/19 03:39 MCV 95 fl (84-94) H 02/19/19 03:39 MCH 32 pg (28-32) 02/19/19 03:39 MCHC 34 % (32-34) 02/19/19 03:39 RDW 14.0 % (13.2-15.2) 02/19/19 03:39 Plt Count 265 K/mm3 (140-440) 02/19/19 03:39 Lymph % (Auto) 12.7 % (13.4-35.0) L 02/17/19 05:45 [place] % (Auto) 8.4 % (0.0-7.3) H 02/17/19 05:45 Eos % (Auto) 0.7 % (0.0-4.3) 02/17/19 05:45 Baso % (Auto) 0.3 % (0.0-1.8) 02/17/19 05:45 Lymph # 1.9 K/mm3 (1.2-5.4) 02/17/19 05:45 [place] # 1.2 K/mm3 (0.0-0.8) H 02/17/19 05:45 Eos # 0.1 K/mm3 (0.0-0.4) 02/17/19 05:45 Baso # 0.1 K/mm3 (0.0-0.1) 02/17/19 05:45 Seg Neutrophils % 77.9 % (40.0-70.0) H 02/17/19 05:45 Seg Neutrophils # 11.5 K/mm3 (1.8-7.7) H 02/17/19 05:45 PT 15.2 Sec. (12.2-14.9) H 02/18/19 15:47 INR 1.23 (0.87-1.13) H 02/18/19 15:47 APTT 29.5 Sec. (24.2-36.6) 02/18/19 15:47 > 82851 ng/mlDDU (0-234) H 02/18/19 13:17 Heparin Anti-Xa Level 0.88 U.I./ml (0.3-0.7) H 02/19/19 15:41 POC ABG pH 7.439 (7.35-7.45) 02/18/19 21:02 POC ABG pCO2 37.8 (35-45) 02/18/19 21:02 POC ABG pO2 238 (80-105) H 02/18/19 21:02 POC ABG HCO3 25.6 (22-26 mml/L) 02/18/19 21:02 POC ABG Total CO2 27 (23-27mmol/L) 02/18/19 21:02 POC ABG O2 Sat 100 02/18/19 21:02 POC ABG Base Excess 1 ((-2) - (+3)mmol/L) 02/18/19 21:02 100 % 02/18/19 21:02 Sodium 142 mmol/L (137-145) 02/19/19 03:39 Potassium 3.0 mmol/L (3.6-5.0) L 02/19/19 03:39 Chloride 104.2 mmol/L (98-107) 02/19/19 03:39 Carbon Dioxide 27 mmol/L (22-30) 02/19/19 03:39 14 mmol/L 02/19/19 03:39 BUN 8 mg/dL (9-20) L 02/19/19 03:39 0.6 mg/dL (0.8-1.5) L 02/19/19 03:39 Estimated GFR > 60 ml/min 02/19/19 03:39 13 % 02/19/19 03:39 Glucose 130 mg/dL (75-100) H 02/19/19 03:39 POC Glucose 147 (70-105) H 02/19/19 15:46 5.8 % (4-6) 02/16/19 10:34 Lactic Acid 1.40 mmol/L (0.7-2.0) 02/16/19 13:12 Calcium 8.3 mg/dL (8.4-10.2) L 02/19/19 03:39 Phosphorus 2.20 mg/dL (2.5-4.5) L 02/18/19 05:27 Magnesium 1.70 mg/dL (1.7-2.3) 02/18/19 05:27 0.80 mg/dL (0.1-1.2) 02/17/19 05:45 0.4 mg/dL (0-0.2) H 02/16/19 10:34 0.8 mg/dL 02/16/19 10:34 AST 19 units/L (5-40) 02/17/19 05:45 ALT 37 units/L (7-56) 02/17/19 05:45 63 units/L (35-129) 02/17/19 05:45 0.057 ng/mL (0.00-0.029) H 02/18/19 18:05 7.0 g/dL (6.3-8.2) 02/17/19 05:45 2.8 g/dL (3.9-5) L 02/17/19 05:45 0.7 % 02/17/19 05:45 Triglycerides 70 mg/dL (2-149) 02/18/19 18:05 Cholesterol 109 mg/dL (50-199) 02/18/19 18:05 72 mg/dL (50-130) 02/18/19 18:05 26 mg/dL (40-59) L 02/18/19 18:05 4.19 % 02/18/19 18:05 Yellow (Yellow) 02/16/19 13:16 Hazy (Clear) 02/16/19 13:16 6.0 (5.0-7.0) 02/16/19 13:16 Ur Specific [place] 1.018 (1.003-1.030) 02/16/19 13:16 <15 mg/dl mg/dL (Negative) 02/16/19 13:16 Neg mg/dL (Negative) 02/16/19 13:16 20 mg/dL (Negative) 02/16/19 13:16 Sm (Negative) 02/16/19 13:16 Neg (Negative) 02/16/19 13:16 Neg (Negative) 02/16/19 13:16 < 2.0 mg/dL (<2.0) 02/16/19 13:16 Ur Leukocyte Esterase Sm (Negative) 02/16/19 13:16 19.0 /HPF (0.0-6.0) H 02/16/19 13:16 7.0 /HPF (0.0-6.0) 02/16/19 13:16 U Epithel Cells (Auto) 2.0 /HPF (0-13.0) 02/16/19 13:16 Few /HPF 02/16/19 13:16 - Imaging and Cardiology EKG: report reviewed, image reviewed CT scan - chest: report reviewed, image reviewed Active Medications - Current Medications Current Medications: Generic Name Dose Route Start Last Admin Trade Name Freq PRN Reason Stop Dose Admin Acetaminophen 650 mg 02/16/19 19:42 Tylenol PO Q4H PRN Pain MILD(1-3)/Fever >100.5/GOMEZ Famotidine 20 mg 02/16/19 22:00 02/19/19 09:38 Pepcid IV 20 mg BID MIGUEL Administration Hydromorphone HCl 0.5 mg 02/16/19 17:01 02/19/19 06:26 Dilaudid IV 0.5 mg Q3H PRN Administration Pain , Severe (7-10) Potassium Chloride/Dextrose/Sod Cl 20 meq in 1,000 mls @ 75 mls/hr 02/17/19 13:00 02/19/19 06:26 D5w/Ns W/Kcl 20meq IV 75 mls/hr DIRECT MIGUEL Administration Cefepime HCl 2 gm in 100 mls @ 200 mls/hr 02/17/19 22:00 02/19/19 17:54 Maxipime/Ns 2 Gm/100 Ml IV 200 mls/hr Q12HR MIGUEL Administration Protocol Heparin Sodium/Sodium Chloride 25,000 unit in 500 mls @ 21 mls/hr 02/18/19 16:00 02/19/19 17:54 Heparin/ 0.45% Nacl-25,000 Unit/500 Ml IV 1,250 units/hr TITR MIGUEL 25 mls/hr Administration Protocol 1,050 UNITS/HR Ondansetron HCl 4 mg 02/16/19 19:42 Zofran IV Q8H PRN Nausea And Vomiting Oxycodone/Acetaminophen 1 tab 02/16/19 19:42 Percocet 5/325 PO Q6H PRN Pain, Moderate (4-6) Sodium Chloride 10 ml 02/16/19 22:00 02/19/19 09:38 Sodium Chloride Flush Syringe 10 Ml IV 10 ml BID MIGUEL Administration Sodium Chloride 10 ml 02/16/19 19:42 Sodium Chloride Flush Syringe 10 Ml IV PRN PRN LINE FLUSH
[2019-02-20] MEDS: MAXIPIME/NS 2 GM/100 ML 2 GM/100 ML BAG IV SCH ×3 (01:25→23:24)
[2019-02-20 05:28] LABS: Hematocrit 37.6 % (35.5-45.6); Hemoglobin 12.5 gm/dl (11.8-15.2)
[2019-02-20 06:50] LABS: BUN/Creatinine Ratio 15; Blood Urea Nitrogen 9 mg/dL (9-20); Hemolysis Index 5
--- NOTE | 2019-02-20 08:57 | Progress Note ---
Assessment and Plan Acute pulmonary embolism, intermediate with evidence of ventricular strain.Successful thrombectomy by IR of the right lobar and main pulmonary artery pulmonary embolisms Hypoxemia respiratory failure. Significantly improved currently on room air. Secondary to PE and atelectasis/infarction. DVT by bilateral lower extremity Doppler analysis Left nephrostomy Nephrolithiasis Hypokalemia Recommendations Continue IV heparin Transition to warfarin or OAC's and watch for bleeding Follow IV heparin protocol Periodic H&H check The patient can be transitioned to oral anticoagulation, we'll recommend continue this treatment and reassess need for extended anticoagulation after 3- 6 months initially I discussed on interview the patient's fully in Portuguese and in detail. The patient aware off recommendations, need for follow-up as an outpatient and plan of care. Discussed in detail with patient and . All questions answered. Critical care time was 31 minutes of [id number] evaluation and coordination of care Subjective Date of service: 02/20/19 Principal diagnosis: large acute pulmonary embolism, obstructing left ure teropelvic stone Interval history: Improvement Objective Vital Signs - 12hr 02/19/19 02/19/19 02/19/19 21:00 21:30 21:32 Temperature Pulse Rate 91 H 92 H Respiratory 26 H 25 H Rate Blood Pressure 118/82 120/88 O2 Sat by Pulse 100 100 99 Oximetry 02/19/19 02/19/19 02/19/19 22:00 22:30 23:00 Temperature Pulse Rate 88 90 83 Respiratory 27 H 24 27 H Rate Blood Pressure 118/86 122/84 128/89 O2 Sat by Pulse 99 100 100 Oximetry 02/19/19 02/20/19 02/20/19 23:30 00:00 00:30 Temperature 98.8 F Pulse Rate 84 77 98 H Respiratory 25 H 26 H 24 Rate Blood Pressure 123/93 128/93 122/92 O2 Sat by Pulse 100 100 100 Oximetry 02/20/19 02/20/19 02/20/19 01:00 01:30 02:00 Temperature Pulse Rate 82 80 75 Respiratory 25 H 20 20 Rate Blood Pressure 131/94 128/91 121/80 O2 Sat by Pulse 100 100 99 Oximetry 02/20/19 02/20/19 02/20/19 02:30 03:00 03:30 Temperature Pulse Rate 89 73 87 Respiratory 23 21 22 Rate Blood Pressure 123/87 119/84 127/90 O2 Sat by Pulse 100 100 99 Oximetry 02/20/19 02/20/19 02/20/19 04:00 04:30 05:00 Temperature 98.9 F Pulse Rate 72 75 83 Respiratory 21 21 17 Rate Blood Pressure 127/90 112/80 119/86 O2 Sat by Pulse 99 99 99 Oximetry 02/20/19 02/20/19 02/20/19 05:30 06:00 06:30 Temperature Pulse Rate 83 81 83 Respiratory 12 27 H 22 Rate Blood Pressure 105/74 105/74 121/84 O2 Sat by Pulse 98 96 99 Oximetry 02/20/19 02/20/19 07:00 07:58 Temperature Pulse Rate 79 Respiratory 21 Rate Blood Pressure 121/84 O2 Sat by Pulse 97 97 Oximetry Constitutional: no acute distress, alert Eyes: non-icteric ENT: oropharynx moist Neck: supple, no JVD Ascultation: Bilateral: clear Cardiovascular: regular rate and rhythm Gastrointestinal: normoactive bowel sounds, non-distended, other (left nephrostomy tube without gross bleeding) Integumentary: normal Extremities: no cyanosis, no edema Neurologic: normal mental status, non-focal exam CBC and BMP: 02/20/19 05:07 02/20/19 05:00 ABG, PT/INR, D-dimer: ABG POC ABG pH 7.439 (7.35-7.45) 02/18/19 21:02 POC ABG pCO2 37.8 (35-45) 02/18/19 21:02 POC ABG pO2 238 (80-105) H 02/18/19 21:02 POC ABG HCO3 25.6 (22-26 mml/L) 02/18/19 21:02 POC ABG Total CO2 27 (23-27mmol/L) 02/18/19 21:02 POC ABG O2 Sat 100 02/18/19 21:02 PT/INR, D-dimer PT 15.2 Sec. (12.2-14.9) H 02/18/19 15:47 INR 1.23 (0.87-1.13) H 02/18/19 15:47 > 30169 ng/mlDDU (0-234) H 02/18/19 13:17 Abnormal lab findings: Abnormal Labs 02/16/19 02/16/19 02/16/19 10:34 10:34 10:34 WBC 18.4 H Hgb 15.8 H Hct 46.7 H MCV Lymph % (Auto) 9.4 L [place] % (Auto) 8.2 H [place] # 1.5 H Seg Neutrophils % 81.9 H Seg Neutrophils # 15.1 H PT INR D-Dimer Heparin Anti-Xa Level POC ABG pH POC ABG pCO2 POC ABG pO2 Sodium 131 L Potassium 3.4 L Chloride 90.3 L BUN Creatinine Glucose 128 H POC Glucose Calcium Phosphorus Direct Bilirubin 0.4 H ALT 62 H 62 H Troponin T Total Protein 8.7 H 8.7 H Albumin 3.4 L 3.4 L HDL Cholesterol Urine WBC (Auto) 02/16/19 02/17/19 02/17/19 13:16 05:45 05:45 WBC 14.7 H Hgb Hct MCV 95 H Lymph % (Auto) 12.7 L [place] % (Auto) 8.4 H [place] # 1.2 H Seg Neutrophils % 77.9 H Seg Neutrophils # 11.5 H PT INR D-Dimer Heparin Anti-Xa Level POC ABG pH POC ABG pCO2 POC ABG pO2 Sodium Potassium 3.3 L Chloride BUN Creatinine 0.7 L Glucose 111 H POC Glucose Calcium 8.0 L Phosphorus Direct Bilirubin ALT Troponin T Total Protein Albumin 2.8 L HDL Cholesterol Urine WBC (Auto) 19.0 H 02/18/19 02/18/19 02/18/19 05:27 05:27 13:17 WBC 13.8 H 18.4 H Hgb Hct MCV 95 H Lymph % (Auto) [place] % (Auto) [place] # Seg Neutrophils % Seg Neutrophils # PT INR D-Dimer Heparin Anti-Xa Level POC ABG pH POC ABG pCO2 POC ABG pO2 Sodium Potassium 3.1 L Chloride BUN 7 L Creatinine 0.6 L Glucose 115 H POC Glucose Calcium Phosphorus 2.20 L Direct Bilirubin ALT Troponin T Total Protein Albumin HDL Cholesterol Urine WBC (Auto) 02/18/19 02/18/19 02/18/19 13:17 13:17 14:29 WBC Hgb Hct MCV Lymph % (Auto) [place] % (Auto) [place] # Seg Neutrophils % Seg Neutrophils # PT INR D-Dimer > 85342 H Heparin Anti-Xa Level POC ABG pH 7.480 H POC ABG pCO2 32.1 L POC ABG pO2 65 L Sodium Potassium Chloride BUN 8 L Creatinine 0.6 L Glucose 118 H POC Glucose Calcium Phosphorus Direct Bilirubin ALT Troponin T Total Protein Albumin HDL Cholesterol Urine WBC (Auto) 02/18/19 02/18/19 02/18/19 15:47 18:05 21:02 WBC Hgb Hct MCV Lymph % (Auto) [place] % (Auto) [place] # Seg Neutrophils % Seg Neutrophils # PT 15.2 H INR 1.23 H D-Dimer Heparin Anti-Xa Level POC ABG pH POC ABG pCO2 POC ABG pO2 238 H Sodium Potassium Chloride BUN Creatinine Glucose POC Glucose Calcium Phosphorus Direct Bilirubin ALT Troponin T 0.057 H Total Protein Albumin HDL Cholesterol 26 L Urine WBC (Auto) 02/18/19 02/19/19 02/19/19 22:46 01:58 03:39 WBC 13.4 H Hgb Hct MCV 95 H Lymph % (Auto) [place] % (Auto) [place] # Seg Neutrophils % Seg Neutrophils # PT INR D-Dimer Heparin Anti-Xa Level 0.10 L POC ABG pH POC ABG pCO2 POC ABG pO2 Sodium Potassium Chloride BUN Creatinine Glucose POC Glucose 122 H Calcium Phosphorus Direct Bilirubin ALT Troponin T Total Protein Albumin HDL Cholesterol Urine WBC (Auto) 02/19/19 02/19/19 02/19/19 03:39 06:39 07:28 WBC Hgb Hct MCV Lymph % (Auto) [place] % (Auto) [place] # Seg Neutrophils % Seg Neutrophils # PT INR D-Dimer Heparin Anti-Xa Level POC ABG pH POC ABG pCO2 POC ABG pO2 Sodium Potassium 3.0 L Chloride BUN 8 L Creatinine 0.6 L Glucose 130 H POC Glucose 122 H 123 H Calcium 8.3 L Phosphorus Direct Bilirubin ALT Troponin T Total Protein Albumin HDL Cholesterol Urine WBC (Auto) 02/19/19 02/19/19 02/19/19 08:10 10:43 15:41 WBC Hgb Hct MCV Lymph % (Auto) [place] % (Auto) [place] # Seg Neutrophils % Seg Neutrophils # PT INR D-Dimer Heparin Anti-Xa Level 0.22 L 0.88 H POC ABG pH POC ABG pCO2 POC ABG pO2 Sodium Potassium Chloride BUN Creatinine Glucose POC Glucose 137 H Calcium Phosphorus Direct Bilirubin ALT Troponin T Total Protein Albumin HDL Cholesterol Urine WBC (Auto) 02/19/19 02/19/19 02/20/19 15:46 21:28 00:38 WBC Hgb Hct MCV Lymph % (Auto) [place] % (Auto) [place] # Seg Neutrophils % Seg Neutrophils # PT INR D-Dimer Heparin Anti-Xa Level 0.17 L POC ABG pH POC ABG pCO2 POC ABG pO2 Sodium Potassium Chloride BUN Creatinine Glucose POC Glucose 147 H 135 H Calcium Phosphorus Direct Bilirubin ALT Troponin T Total Protein Albumin HDL Cholesterol Urine WBC (Auto) 02/20/19 02/20/19 02/20/19 01:53 05:00 06:03 WBC Hgb Hct MCV Lymph % (Auto) [place] % (Auto) [place] # Seg Neutrophils % Seg Neutrophils # PT INR D-Dimer Heparin Anti-Xa Level POC ABG pH POC ABG pCO2 POC ABG pO2 Sodium Potassium Chloride BUN Creatinine 0.6 L Glucose 115 H POC Glucose 115 H 114 H Calcium 8.0 L Phosphorus Direct Bilirubin ALT Troponin T Total Protein Albumin HDL Cholesterol Urine WBC (Auto)
--- NOTE | 2019-02-20 09:39 | Progress Note ---
Assessment and Plan The patient is significantly improved from a respiratory standpoint. Doing well on room air. No evidence of blood in nephrostomy tube output, can be transitioned to Eliquis 10 mg po BID x 7 days and then 5 mg po BID for 6 months. We have found enough free samples for the patient to be maintained on the Eliquis for 6 months in hopes that this will improve chances of compliance. The patient is adamant that he wants the nephrostomy tube removed. I counseled him about the dangers of removing the tube and the possibility of sepsis secondary to bacterial contamination of the kidney as well as the need for treatment of the kidney stone prior to removal. He expressed understanding but was still adamant about not having the stone treated and having the nephrostomy tube removed. Hopefully he will change his mind prior to discharge. Will start his oral anticoagulation and stop the heparin drip. Subjective Date of service: 02/20/19 Principal diagnosis: large acute pulmonary embolism, obstructing left ureteropelvic stone Interval history: The patient underwent percutaneous right pulmonary artery emoblectomy yesterday. We used Google Translate to communicate this morning. He states he feels much better this morning. No significant events overnight. Objective - Constitutional Vitals: Vital Signs - 12hr 02/19/19 02/19/19 02/19/19 22:00 22:30 23:00 Temperature Pulse Rate 88 90 83 Respiratory 27 H 24 27 H Rate Blood Pressure 118/86 122/84 128/89 O2 Sat by Pulse 99 100 100 Oximetry 02/19/19 02/20/19 02/20/19 23:30 00:00 00:30 Temperature 98.8 F Pulse Rate 84 77 98 H Respiratory 25 H 26 H 24 Rate Blood Pressure 123/93 128/93 122/92 O2 Sat by Pulse 100 100 100 Oximetry 02/20/19 02/20/19 02/20/19 01:00 01:30 02:00 Temperature Pulse Rate 82 80 75 Respiratory 25 H 20 20 Rate Blood Pressure 131/94 128/91 121/80 O2 Sat by Pulse 100 100 99 Oximetry 02/20/19 02/20/19 02/20/19 02:30 03:00 03:30 Temperature Pulse Rate 89 73 87 Respiratory 23 21 22 Rate Blood Pressure 123/87 119/84 127/90 O2 Sat by Pulse 100 100 99 Oximetry 06/02/20/19 02/20/19 04:00 04:30 05:00 Temperature 98.9 F Pulse Rate 72 75 83 Respiratory 21 21 17 Rate Blood Pressure 127/90 112/80 119/86 O2 Sat by Pulse 99 99 99 Oximetry 02/20/19 02/20/19 02/20/19 05:30 06:00 06:30 Temperature Pulse Rate 83 81 83 Respiratory 12 27 H 22 Rate Blood Pressure 105/74 105/74 121/84 O2 Sat by Pulse 98 96 99 Oximetry 02/20/19 02/20/19 07:00 07:58 Temperature Pulse Rate 79 Respiratory 21 Rate Blood Pressure 121/84 O2 Sat by Pulse 97 97 Oximetry General appearance: Present: no acute distress - Respiratory Respiratory effort: normal, other (patient with 97% Oxygen saturation on room air) - Cardiovascular Heart rate: 101 Rhythm: regular Extremities: abnormal (no evidence of groin hematoma) - Genitourinary Male genitourinary: normal (nephrostomy urine is clear without any obvious blood) - Labs CBC & Chem 7: 02/20/19 05:07 02/20/19 05:00 Labs: Abnormal lab results 02/19/19 02/19/19 02/19/19 Range/Units 10:43 15:41 15:46 Heparin Anti-Xa Level 0.88 H (0.3-0.7) U.I./ml Creatinine (0.8-1.5) mg/dL Glucose (75-100) mg/dL POC Glucose 137 H 147 H (70-105) Calcium (8.4-10.2) mg/dL 02/19/19 02/20/19 02/20/19 Range/Units 21:28 00:38 01:53 Heparin Anti-Xa Level 0.17 L (0.3-0.7) U.I./ml Creatinine (0.8-1.5) mg/dL Glucose (75-100) mg/dL POC Glucose 135 H 115 H (70-105) Calcium (8.4-10.2) mg/dL 02/20/19 02/20/19 Range/Units 05:00 06:03 Heparin Anti-Xa Level (0.3-0.7) U.I./ml Creatinine 0.6 L (0.8-1.5) mg/dL Glucose 115 H (75-100) mg/dL POC Glucose 114 H (70-105) Calcium 8.0 L (8.4-10.2) mg/dL Medications & Allergies - Medications Allergies/Adverse Reactions: Allergies No Known Allergies Allergy (Unverified 02/16/19 10:17) Home Medications: Home Medications Medication Instructions Recorded Confirmed Last Taken Type No Known Home Medications [No 02/16/19 02/16/19 Unknown History Reported Home Medications] Active Medications: Generic Name Dose Route Start Last Admin Trade Name Freq PRN Reason Stop Dose Admin Acetaminophen 650 mg 02/16/19 19:42 Tylenol PO Q4H PRN Pain MILD(1-3)/Fever >100.5/GOMEZ Famotidine 20 mg 02/16/19 22:00 02/19/19 21:40 Pepcid IV 20 mg BID MIGUEL Administration Hydromorphone HCl 0.5 mg 02/16/19 17:01 02/19/19 06:26 Dilaudid IV 0.5 mg Q3H PRN Administration Pain , Severe (7-10) Potassium Chloride/Dextrose/Sod Cl 20 meq in 1,000 mls @ 75 mls/hr 02/17/19 13:00 02/19/19 06:26 D5w/Ns W/Kcl 20meq IV 75 mls/hr DIRECT MIGUEL Administration Cefepime HCl 2 gm in 100 mls @ 200 mls/hr 02/17/19 22:00 02/20/19 01:25 Maxipime/Ns 2 Gm/100 Ml IV 200 mls/hr Q12HR MIGUEL Administration Protocol Heparin Sodium/Sodium Chloride 25,000 unit in 500 mls @ 21 mls/hr 02/18/19 16:00 02/20/19 01:27 Heparin/ 0.45% Nacl-25,000 Unit/500 Ml IV 1,300 units/hr TITR MIGUEL 26 mls/hr Titration Protocol 1,050 UNITS/HR Ondansetron HCl 4 mg 02/16/19 19:42 Zofran IV Q8H PRN Nausea And Vomiting Oxycodone/Acetaminophen 1 tab 02/16/19 19:42 Percocet 5/325 PO Q6H PRN Pain, Moderate (4-6) Sodium Chloride 10 ml 02/16/19 22:00 02/19/19 21:41 Sodium Chloride Flush Syringe 10 Ml IV 10 ml BID MIGUEL Administration Sodium Chloride 10 ml 02/16/19 19:42 Sodium Chloride Flush Syringe 10 Ml IV PRN PRN LINE FLUSH
--- NOTE | 2019-02-20 10:24 | Progress Note ---
Assessment and Plan Cultures: 02/16/2019 blood culture: No growth 02/16/2019 urine culture: <10 mixed A/P: 39/M with no PMH, admitted with: 1) Sepsis: fever resolved, leukocytosis improving; likely secondary to left- sided pyelonephritis with nephrolithiasis +/- large right sided PE 2) Left-sided pyelonephritis with nephrolithiasis: s/p IR 8 [place] nephrostomy tube placed into his left kidney. Urine culture no impressive. 3) ?LLL pneumonia v/s lung infarct 4) Large right acute occlusive PE at right main pulmonary artery and left lower lobe PE with associated pulmonary infarct: patient with evidence of right heart dysfunction. S/p Successful thrombectomy of the right lobar and main pulmonary artery pulmonary embolisms on 02/19 5) Acute respiratory failure: due to large PE, not a candidate for thrombolytic therapy due to recent placement of his nephrostomy tube. 6) HTN urgency Recs: Continue IV Cefepime 2 gm q12 hrs D5 of 7 Follow-up cultures Will follow. Krupa Santana MD Infectious Diseases [employer] [facility] ([facility]) M [phone] O [phone] Subjective Date of service: 02/20/19 Principal diagnosis: large acute pulmonary embolism, obstructing left ureteropelvic stone Interval history: Patient feels better now he is on NC O2. Alert. No fever last 24h. ROS: no left leg pain, no SOB, no fever, denies N/V/D Objective - Exam Narrative Exam: Constitutional: Alert, cooperative. No acute distress Head, Ears, Nose: Normocephalic, atraumatic. External ears, nose normal Eyes: Conjunctivae/corneas clear. No icterus. No ptosis. Neck: Supple, no meningeal signs Oral: no thrush. Cardiovascular: S1, S2 normal. Respiratory: CTA gigi GI: Soft, non-tender; bowel sounds normal. No peritoneal signs. No Left CVA tenderness Musculoskeletal: No pedal edema, no cyanosis. Skin: No rash or abscess Hem/Lymphatic: No palpable cervical or supraclavicular nodes. No lymphangitis Psych: Mood ok. Affect normal Neurological: Awake, alert, oriented. No gross abnormality - Constitutional Vitals: Vital Signs Temp Pulse Resp BP Pulse Ox 98 F 94 H 27 H 126/90 97 02/20/19 08:00 02/20/19 10:00 02/20/19 10:00 02/20/19 10:00 02/20/19 10:00 Temperature -Last 24 Hours Temperature 98 F Temperature 98.9 F Temperature 98.8 F Temperature 98.1 F Temperature 98.8 F - Labs CBC & Chem 7: 02/20/19 05:07 02/20/19 05:00 Labs: Abnormal lab results 02/18/19 02/19/19 02/19/19 Range/Units 12:51 10:43 15:41 Heparin Anti-Xa Level 0.88 H (0.3-0.7) U.I./ml Creatinine (0.8-1.5) mg/dL Glucose (75-100) mg/dL POC Glucose 123 H 137 H (70-105) Calcium (8.4-10.2) mg/dL 02/19/19 02/19/19 02/20/19 Range/Units 15:46 21:28 00:38 Heparin Anti-Xa Level 0.17 L (0.3-0.7) U.I./ml Creatinine (0.8-1.5) mg/dL Glucose (75-100) mg/dL POC Glucose 147 H 135 H (70-105) Calcium (8.4-10.2) mg/dL 02/20/19 02/20/19 02/20/19 Range/Units 01:53 05:00 06:03 Heparin Anti-Xa Level (0.3-0.7) U.I./ml Creatinine 0.6 L (0.8-1.5) mg/dL Glucose 115 H (75-100) mg/dL POC Glucose 115 H 114 H (70-105) Calcium 8.0 L (8.4-10.2) mg/dL
[2019-02-20] MEDS: PEPCID PO SCH ×2 (10:35→23:24)
[2019-02-20] MEDS: SODIUM CHLORIDE FLUSH SYRINGE 10 ML IV SCH ×2 (10:36→23:24)
--- NOTE | 2019-02-20 12:08 | Progress Note ---
Assessment and Plan Assessment and plan: Acute hypoxic respiratory failure. Etiology multifactorial secondary to sepsis, pneumonia and large right PE. Continue O2 for supportive care. Sepsis: fever resolved, leukocytosis improving; etiology secondary to pyelonephritis with nephrolithiasis Left-sided pyelonephritis with nephrolithiasis: s/p IR 8 [place] nephrostomy tube placed into his left kidney. Urine culture negative. Continue antibiotics per ID LLL pneumonia v/s lung infarct. Continue antibiotics and follow-up imaging. Large right acute occlusive PE at right main pulmonary artery and left lower lobe PE with associated pulmonary infarct: patient with evidence of right heart dysfunction. S/p Successful thrombectomy of the right lobar and main pulmonary artery pulmonary embolisms on 02/19 Acute respiratory failure: due to large PE, not a candidate for thrombolytic therapy due to recent placement of his nephrostomy tube. Accelerated HTN. Continue antihypertensive medications. History Interval history: No new issues overnight. Hospitalist Physical - Constitutional Vitals: Temp Pulse Resp BP Pulse Ox 98 F 85 14 125/88 97 02/20/19 08:00 02/20/19 11:00 02/20/19 11:00 02/20/19 11:00 02/20/19 11:00 General appearance: Present: no acute distress - EENT Eyes: Present: PERRL, EOM intact ENT: hearing intact, clear oral mucosa, dentition normal - Neck Neck: Present: supple, normal ROM - Respiratory Respiratory effort: normal Respiratory: bilateral: CTA - Cardiovascular Rhythm: regular Heart Sounds: Present: S1 & S2. Absent: gallop, rub - Extremities Extremities: no ischemia, No edema, Full ROM - Abdominal General gastrointestinal: soft, non-tender, non-distended, normal bowel sounds - Integumentary Integumentary: Present: clear, warm, dry - Neurologic Neurologic: CNII-XII intact, moves all extremities Results - Labs CBC & Chem 7: 02/20/19 05:07 02/20/19 05:00 Labs: Laboratory Last Values WBC 13.4 K/mm3 (4.5-11.0) H 02/19/19 03:39 RBC 4.30 M/mm3 (3.65-5.03) 02/19/19 03:39 Hgb 12.5 gm/dl (11.8-15.2) 02/20/19 05:07 Hct 37.6 % (35.5-45.6) 02/20/19 05:07 MCV 95 fl (84-94) H 02/19/19 03:39 MCH 32 pg (28-32) 02/19/19 03:39 MCHC 34 % (32-34) 02/19/19 03:39 RDW 14.0 % (13.2-15.2) 02/19/19 03:39 Plt Count 265 K/mm3 (140-440) 02/20/19 05:07 Lymph % (Auto) 12.7 % (13.4-35.0) L 02/17/19 05:45 [place] % (Auto) 8.4 % (0.0-7.3) H 02/17/19 05:45 Eos % (Auto) 0.7 % (0.0-4.3) 02/17/19 05:45 Baso % (Auto) 0.3 % (0.0-1.8) 02/17/19 05:45 Lymph # 1.9 K/mm3 (1.2-5.4) 02/17/19 05:45 [place] # 1.2 K/mm3 (0.0-0.8) H 02/17/19 05:45 Eos # 0.1 K/mm3 (0.0-0.4) 02/17/19 05:45 Baso # 0.1 K/mm3 (0.0-0.1) 02/17/19 05:45 Seg Neutrophils % 77.9 % (40.0-70.0) H 02/17/19 05:45 Seg Neutrophils # 11.5 K/mm3 (1.8-7.7) H 02/17/19 05:45 PT 15.2 Sec. (12.2-14.9) H 02/18/19 15:47 INR 1.23 (0.87-1.13) H 02/18/19 15:47 APTT 29.5 Sec. (24.2-36.6) 02/18/19 15:47 > 96011 ng/mlDDU (0-234) H 02/18/19 13:17 Heparin Anti-Xa Level 0.17 U.I./ml (0.3-0.7) L 02/20/19 00:38 POC ABG pH 7.439 (7.35-7.45) 02/18/19 21:02 POC ABG pCO2 37.8 (35-45) 02/18/19 21:02 POC ABG pO2 238 (80-105) H 02/18/19 21:02 POC ABG HCO3 25.6 (22-26 mml/L) 02/18/19 21:02 POC ABG Total CO2 27 (23-27mmol/L) 02/18/19 21:02 POC ABG O2 Sat 100 02/18/19 21:02 POC ABG Base Excess 1 ((-2) - (+3)mmol/L) 02/18/19 21:02 100 % 02/18/19 21:02 Sodium 139 mmol/L (137-145) 02/20/19 05:00 Potassium 3.9 mmol/L (3.6-5.0) D 02/20/19 05:00 Chloride 101.4 mmol/L (98-107) 02/20/19 05:00 Carbon Dioxide 24 mmol/L (22-30) 02/20/19 05:00 18 mmol/L 02/20/19 05:00 BUN 9 mg/dL (9-20) 02/20/19 05:00 0.6 mg/dL (0.8-1.5) L 02/20/19 05:00 Estimated GFR > 60 ml/min 02/20/19 05:00 15 % 02/20/19 05:00 Glucose 115 mg/dL (75-100) H 02/20/19 05:00 POC Glucose 114 (70-105) H 02/20/19 06:03 5.8 % (4-6) 02/16/19 10:34 Lactic Acid 1.40 mmol/L (0.7-2.0) 02/16/19 13:12 Calcium 8.0 mg/dL (8.4-10.2) L 02/20/19 05:00 Phosphorus 2.20 mg/dL (2.5-4.5) L 02/18/19 05:27 Magnesium 1.70 mg/dL (1.7-2.3) 02/18/19 05:27 0.80 mg/dL (0.1-1.2) 02/17/19 05:45 0.4 mg/dL (0-0.2) H 02/16/19 10:34 0.8 mg/dL 02/16/19 10:34 AST 19 units/L (5-40) 02/17/19 05:45 ALT 37 units/L (7-56) 02/17/19 05:45 63 units/L (35-129) 02/17/19 05:45 0.057 ng/mL (0.00-0.029) H 02/18/19 18:05 7.0 g/dL (6.3-8.2) 02/17/19 05:45 2.8 g/dL (3.9-5) L 02/17/19 05:45 0.7 % 02/17/19 05:45 Triglycerides 70 mg/dL (2-149) 02/18/19 18:05 Cholesterol 109 mg/dL (50-199) 02/18/19 18:05 72 mg/dL (50-130) 02/18/19 18:05 26 mg/dL (40-59) L 02/18/19 18:05 4.19 % 02/18/19 18:05 Yellow (Yellow) 02/16/19 13:16 Hazy (Clear) 02/16/19 13:16 6.0 (5.0-7.0) 02/16/19 13:16 Ur Specific [place] 1.018 (1.003-1.030) 02/16/19 13:16 <15 mg/dl mg/dL (Negative) 02/16/19 13:16 Neg mg/dL (Negative) 02/16/19 13:16 20 mg/dL (Negative) 02/16/19 13:16 Sm (Negative) 02/16/19 13:16 Neg (Negative) 02/16/19 13:16 Neg (Negative) 02/16/19 13:16 < 2.0 mg/dL (<2.0) 02/16/19 13:16 Ur Leukocyte Esterase Sm (Negative) 02/16/19 13:16 19.0 /HPF (0.0-6.0) H 02/16/19 13:16 7.0 /HPF (0.0-6.0) 02/16/19 13:16 U Epithel Cells (Auto) 2.0 /HPF (0-13.0) 02/16/19 13:16 Few /HPF 02/16/19 13:16 Active Medications - Current Medications Current Medications: Generic Name Dose Route Start Last Admin Trade Name Karthik PRN Reason Stop Dose Admin Acetaminophen 650 mg 02/16/19 19:42 Tylenol PO Q4H PRN Pain MILD(1-3)/Fever >100.5/GOMEZ Famotidine 20 mg 02/20/19 10:00 02/20/19 10:35 Pepcid PO 20 mg BID MIGUEL Administration Hydromorphone HCl 0.5 mg 02/16/19 17:01 02/19/19 06:26 Dilaudid IV 0.5 mg Q3H PRN Administration Pain , Severe (7-10) Cefepime HCl 2 gm in 100 mls @ 200 mls/hr 02/17/19 22:00 02/20/19 11:31 Maxipime/Ns 2 Gm/100 Ml IV 200 mls/hr Q12HR MIGUEL Administration Protocol Heparin Sodium/Sodium Chloride 25,000 unit in 500 mls @ 21 mls/hr 02/18/19 16:00 02/20/19 01:27 Heparin/ 0.45% Nacl-25,000 Unit/500 Ml IV 1,300 units/hr TITR MIGUEL 26 mls/hr Titration Protocol 1,050 UNITS/HR Ondansetron HCl 4 mg 02/16/19 19:42 Zofran IV Q8H PRN Nausea And Vomiting Oxycodone/Acetaminophen 1 tab 02/16/19 19:42 Percocet 5/325 PO Q6H PRN Pain, Moderate (4-6) Sodium Chloride 10 ml 02/16/19 22:00 02/20/19 10:36 Sodium Chloride Flush Syringe 10 Ml IV 10 ml BID MIGUEL Administration Sodium Chloride 10 ml 02/16/19 19:42 Sodium Chloride Flush Syringe 10 Ml IV PRN PRN LINE FLUSH
[2019-02-20] MEDS ORDERED: HEPARIN IV ONE (13:05)
[2019-02-20] MEDS: ELIQUIS PO SCH ×2 (13:11→23:23)
[2019-02-20] MEDS: TYLENOL PO PRN ×2 (16:32→23:23)
[2019-02-21] MEDS: TYLENOL PO PRN ×2 (06:25→17:37)
[2019-02-21] MEDS: PERCOCET 5/325 PO PRN ×2 (06:58→21:14)
--- NOTE | 2019-02-21 08:55 | Progress Note ---
Assessment and Plan Acute pulmonary embolism, intermediate with right ventricular strain.Successful thrombectomy by IR of the right lobar and main pulmonary artery pulmonary embolisms Hypoxemia respiratory failure. Resolved. Secondary to PE and atelectasis /infarction. No DVT by bilateral lower extremity Doppler analysis Pneumonia versus pulmonary infarct. Some fever but no other symptoms. Fever can be seen with both conditions. Left nephrostomy Nephrolithiasis Hypokalemia Recommendations Continue anticoagulation and transition to OAC's Watch for bleeding Complete antibiotics per ID Nephrostomy tube removal per IMS and interventional, urology If any additional major surgery planned, typically, best care is to wait 6 weeks after acute major pulmonary embolism,unless urgent surgery is needed. Continue anticoagulation the meantime and it does seem to be compromised,temporary inferior vena filter may be needed I discussed on interview the patient's fully in Malay and in detail. The patient aware off recommendations, need for follow-up as an outpatient and plan of care. Discussed in detail with patient. All questions answered. Subjective Date of service: 02/21/19 Principal diagnosis: large acute pulmonary embolism, obstructing left ureteropelvic stone Interval history: Normal events overnight. No respiratory complaints, chest pain or shortness of breath reported. Found breathing comfortably on room air. No bleeding reported Objective Vital Signs - 12hr 02/20/19 02/20/19 02/20/19 20:49 20:51 20:53 Temperature Pulse Rate 90 89 92 H Respiratory 29 H 27 H 29 H Rate Blood Pressure 113/79 113/79 113/79 O2 Sat by Pulse 98 99 97 Oximetry 02/20/19 02/20/19 02/20/19 20:55 20:57 20:59 Temperature Pulse Rate 94 H 89 88 Respiratory 26 H 26 H 29 H Rate Blood Pressure 113/79 113/79 113/79 O2 Sat by Pulse 98 97 98 Oximetry 02/20/19 02/20/19 02/20/19 21:00 21:03 21:05 Temperature Pulse Rate 93 H 94 H 88 Respiratory 29 H 21 26 H Rate Blood Pressure 121/83 121/83 121/83 O2 Sat by Pulse 98 97 97 Oximetry 02/20/19 02/20/19 02/20/19 21:07 21:09 21:11 Temperature Pulse Rate 89 83 82 Respiratory 28 H 28 H 28 H Rate Blood Pressure 121/83 121/83 121/83 O2 Sat by Pulse 97 97 97 Oximetry 02/20/19 02/20/19 02/20/19 21:13 21:14 22:31 Temperature 100.4 F H Pulse Rate 108 H 97 H 94 H Respiratory 26 H 25 H 20 Rate Blood Pressure 121/83 121/83 138/93 O2 Sat by Pulse 97 96 Oximetry 02/21/19 02/21/19 02/21/19 00:00 05:22 08:37 Temperature 100.3 F H Pulse Rate 100 H Respiratory 20 Rate Blood Pressure 133/87 O2 Sat by Pulse 97 92 94 Oximetry Constitutional: no acute distress, alert Eyes: non-icteric ENT: oropharynx moist Neck: supple, no JVD Ascultation: Bilateral: clear Cardiovascular: regular rate and rhythm Gastrointestinal: normoactive bowel sounds, non-distended, other (left nephrostomy tube without gross bleeding, yellow- reddish urine color) Integumentary: normal Extremities: no cyanosis, no edema Neurologic: normal mental status, non-focal exam CBC and BMP: 02/20/19 05:07 02/20/19 05:00 ABG, PT/INR, D-dimer: ABG POC ABG pH 7.439 (7.35-7.45) 02/18/19 21:02 POC ABG pCO2 37.8 (35-45) 02/18/19 21:02 POC ABG pO2 238 (80-105) H 02/18/19 21:02 POC ABG HCO3 25.6 (22-26 mml/L) 02/18/19 21:02 POC ABG Total CO2 27 (23-27mmol/L) 02/18/19 21:02 POC ABG O2 Sat 100 02/18/19 21:02 PT/INR, D-dimer PT 15.2 Sec. (12.2-14.9) H 02/18/19 15:47 INR 1.23 (0.87-1.13) H 02/18/19 15:47 > 72544 ng/mlDDU (0-234) H 02/18/19 13:17 Abnormal lab findings: Abnormal Labs 02/16/19 02/16/19 02/16/19 10:34 10:34 10:34 WBC 18.4 H Hgb 15.8 H Hct 46.7 H MCV Lymph % (Auto) 9.4 L [place] % (Auto) 8.2 H Kidder # 1.5 H Seg Neutrophils % 81.9 H Seg Neutrophils # 15.1 H PT INR D-Dimer Heparin Anti-Xa Level POC ABG pH POC ABG pCO2 POC ABG pO2 Sodium 131 L Potassium 3.4 L Chloride 90.3 L BUN Creatinine Glucose 128 H POC Glucose Calcium Phosphorus Direct Bilirubin 0.4 H ALT 62 H 62 H Troponin T Total Protein 8.7 H 8.7 H Albumin 3.4 L 3.4 L HDL Cholesterol Urine WBC (Auto) 02/16/19 02/17/19 02/17/19 13:16 05:45 05:45 WBC 14.7 H Hgb Hct MCV 95 H Lymph % (Auto) 12.7 L [place] % (Auto) 8.4 H Kidder # 1.2 H Seg Neutrophils % 77.9 H Seg Neutrophils # 11.5 H PT INR D-Dimer Heparin Anti-Xa Level POC ABG pH POC ABG pCO2 POC ABG pO2 Sodium Potassium 3.3 L Chloride BUN Creatinine 0.7 L Glucose 111 H POC Glucose Calcium 8.0 L Phosphorus Direct Bilirubin ALT Troponin T Total Protein Albumin 2.8 L HDL Cholesterol Urine WBC (Auto) 19.0 H 02/18/19 02/18/19 02/18/19 05:27 05:27 12:51 WBC 13.8 H Hgb Hct MCV Lymph % (Auto) Kidder % (Auto) Kidder # Seg Neutrophils % Seg Neutrophils # PT INR D-Dimer Heparin Anti-Xa Level POC ABG pH POC ABG pCO2 POC ABG pO2 Sodium Potassium 3.1 L Chloride BUN 7 L Creatinine 0.6 L Glucose 115 H POC Glucose 123 H Calcium Phosphorus 2.20 L Direct Bilirubin ALT Troponin T Total Protein Albumin HDL Cholesterol Urine WBC (Auto) 02/18/19 02/18/19 02/18/19 13:17 13:17 13:17 WBC 18.4 H Hgb Hct MCV 95 H Lymph % (Auto) Kidder % (Auto) Kidder # Seg Neutrophils % Seg Neutrophils # PT INR D-Dimer > 52928 H Heparin Anti-Xa Level POC ABG pH POC ABG pCO2 POC ABG pO2 Sodium Potassium Chloride BUN 8 L Creatinine 0.6 L Glucose 118 H POC Glucose Calcium Phosphorus Direct Bilirubin ALT Troponin T Total Protein Albumin HDL Cholesterol Urine WBC (Auto) 02/18/19 02/18/19 02/18/19 14:29 15:47 18:05 WBC Hgb Hct MCV Lymph % (Auto) Kidder % (Auto) Kidder # Seg Neutrophils % Seg Neutrophils # PT 15.2 H INR 1.23 H D-Dimer Heparin Anti-Xa Level POC ABG pH 7.480 H POC ABG pCO2 32.1 L POC ABG pO2 65 L Sodium Potassium Chloride BUN Creatinine Glucose POC Glucose Calcium Phosphorus Direct Bilirubin ALT Troponin T 0.057 H Total Protein Albumin HDL Cholesterol 26 L Urine WBC (Auto) 02/18/19 02/18/19 02/19/19 21:02 22:46 01:58 WBC Hgb Hct MCV Lymph % (Auto) Kidder % (Auto) Kidder # Seg Neutrophils % Seg Neutrophils # PT INR D-Dimer Heparin Anti-Xa Level 0.10 L POC ABG pH POC ABG pCO2 POC ABG pO2 238 H Sodium Potassium Chloride BUN Creatinine Glucose POC Glucose 122 H Calcium Phosphorus Direct Bilirubin ALT Troponin T Total Protein Albumin HDL Cholesterol Urine WBC (Auto) 02/19/19 02/19/19 02/19/19 03:39 03:39 06:39 WBC 13.4 H Hgb Hct MCV 95 H Lymph % (Auto) Kidder % (Auto) Kidder # Seg Neutrophils % Seg Neutrophils # PT INR D-Dimer Heparin Anti-Xa Level POC ABG pH POC ABG pCO2 POC ABG pO2 Sodium Potassium 3.0 L Chloride BUN 8 L Creatinine 0.6 L Glucose 130 H POC Glucose 122 H Calcium 8.3 L Phosphorus Direct Bilirubin ALT Troponin T Total Protein Albumin HDL Cholesterol Urine WBC (Auto) 02/19/19 02/19/19 02/19/19 07:28 08:10 10:43 WBC Hgb Hct MCV Lymph % (Auto) Kid[place] % (Auto) Kidder # Seg Neutrophils % Seg Neutrophils # PT INR D-Dimer Heparin Anti-Xa Level 0.22 L POC ABG pH POC ABG pCO2 POC ABG pO2 Sodium Potassium Chloride BUN Creatinine Glucose POC Glucose 123 H 137 H Calcium Phosphorus Direct Bilirubin ALT Troponin T Total Protein Albumin HDL Cholesterol Urine WBC (Auto) 02/19/19 02/19/19 02/19/19 15:41 15:46 21:28 WBC Hgb Hct MCV Lymph % (Auto) Kid[place] % (Auto) Kidder # Seg Neutrophils % Seg Neutrophils # PT INR D-Dimer Heparin Anti-Xa Level 0.88 H POC ABG pH POC ABG pCO2 POC ABG pO2 Sodium Potassium Chloride BUN Creatinine Glucose POC Glucose 147 H 135 H Calcium Phosphorus Direct Bilirubin ALT Troponin T Total Protein Albumin HDL Cholesterol Urine WBC (Auto) 02/20/19 02/20/19 02/20/19 00:38 01:53 05:00 WBC Hgb Hct MCV Lymph % (Auto) Kid[place] % (Auto) Kidder # Seg Neutrophils % Seg Neutrophils # PT INR D-Dimer Heparin Anti-Xa Level 0.17 L POC ABG pH POC ABG pCO2 POC ABG pO2 Sodium Potassium Chloride BUN Creatinine 0.6 L Glucose 115 H POC Glucose 115 H Calcium 8.0 L Phosphorus Direct Bilirubin ALT Troponin T Total Protein Albumin HDL Cholesterol Urine WBC (Auto) 02/20/19 02/20/19 02/20/19 06:03 11:41 11:50 WBC Hgb Hct MCV Lymph % (Auto) Kidder % (Auto) Kidder # Seg Neutrophils % Seg Neutrophils # PT INR D-Dimer Heparin Anti-Xa Level < 0.10 L POC ABG pH POC ABG pCO2 POC ABG pO2 Sodium Potassium Chloride BUN Creatinine Glucose POC Glucose 114 H 116 H Calcium Phosphorus Direct Bilirubin ALT Troponin T Total Protein Albumin HDL Cholesterol Urine WBC (Auto) 02/20/19 16:32 WBC Hgb Hct MCV Lymph % (Auto) Kidder % (Auto) Kidder # Seg Neutrophils % Seg Neutrophils # PT INR D-Dimer Heparin Anti-Xa Level POC ABG pH POC ABG pCO2 POC ABG pO2 Sodium Potassium Chloride BUN Creatinine Glucose POC Glucose 116 H Calcium Phosphorus Direct Bilirubin ALT Troponin T Total Protein Albumin HDL Cholesterol Urine WBC (Auto)
[2019-02-21] MEDS: ELIQUIS PO SCH ×2 (09:54→21:14)
[2019-02-21] MEDS: PEPCID PO SCH ×2 (09:54→21:14)
[2019-02-21] MEDS: SODIUM CHLORIDE FLUSH SYRINGE 10 ML IV SCH ×2 (09:54→21:21)
[2019-02-21] MEDS: MAXIPIME/NS 2 GM/100 ML 2 GM/100 ML BAG IV SCH ×2 (09:56→21:17)
--- NOTE | 2019-02-21 10:04 | Progress Note ---
Assessment and Plan Cultures: 02/16/2019 blood culture: No growth 02/16/2019 urine culture: <10 mixed A/P: 39/M with no PMH, admitted with: 1) Sepsis: leukocytosis improving, Low grade fever noted 100.4. likely se condary to left-sided pyelonephritis with nephrolithiasis +/- large right sided PE 2) Left-sided pyelonephritis with nephrolithiasis: s/p IR 8 [place] nephrostomy tube placed into his left kidney. Urine culture not impressive. 3) ?LLL pneumonia v/s lung infarct 4) Large right acute occlusive PE at right main pulmonary artery and left lower lobe PE with associated pulmonary infarct: patient with evidence of right heart dysfunction. S/p Successful thrombectomy of the right lobar and main pulmonary artery pulmonary embolisms on 02/19 5) Acute respiratory failure: due to large PE, not a candidate for thrombolytic therapy due to recent placement of his nephrostomy tube. 6) HTN urgency Recs: Continue IV Cefepime 2 gm q12 hrs D6 of 7 Follow-up cultures Patient wants nephrostomy tube removed, await IR and urology recommendation If being discharged home, ok to discharge on Ceftin 500 mg PO every 12 hours times 1 dose. Micaela Kwong NP [facility] M: [phone] O:[phone] Subjective Date of service: 02/21/19 Principal diagnosis: large acute pulmonary embolism, obstructing left ureteropelvic stone Interval history: Patient seen and examined. States that he is feeling better today, no abdominal pain or generalized weakness. Low grade fevers. Objective - Exam Narrative Exam: Constitutional: Alert, cooperative. No acute distress Head, Ears, Nose: Normocephalic, atraumatic. External ears, nose normal Eyes: Conjunctivae/corneas clear. No icterus. No ptosis. Neck: Supple, no meningeal signs Oral: no thrush. Cardiovascular: S1, S2 normal. Respiratory: CTA gigi GI: Soft, non-tender; bowel sounds normal. No peritoneal signs. No Left CVA tenderness Musculoskeletal: No pedal edema, no cyanosis. Skin: No rash or abscess Hem/Lymphatic: No palpable cervical or supraclavicular nodes. No lymphangitis Psych: Mood ok. Affect normal Neurological: Awake, alert, oriented. No gross abnormality - Constitutional Vitals: Vital Signs Temp Pulse Resp BP Pulse Ox 100.3 F H 100 H 20 133/87 94 02/21/19 05:22 02/21/19 05:22 02/21/19 05:22 02/21/19 05:22 02/21/19 08:37 Temperature -Last 24 Hours Temperature 100.3 F Temperature 100.4 F Temperature 98.2 F Temperature 100.1 F Temperature 98.8 F Temperature 100.6 F Temperature 97.6 F - Labs CBC & Chem 7: 02/20/19 05:07 02/20/19 05:00 Labs: Abnormal lab results 02/20/19 02/20/19 02/20/19 Range/Units 11:41 11:50 16:32 Heparin Anti-Xa Level < 0.10 L (0.3-0.7) U.I./ml POC Glucose 116 H 116 H (70-105)
--- NOTE | 2019-02-21 11:35 | Progress Note ---
Assessment and Plan Assessment and plan: Acute hypoxic respiratory failure. Etiology multifactorial secondary to sepsis, pneumonia and large right PE. Continue O2 for supportive care. Sepsis: fever resolved, leukocytosis improving; etiology secondary to pyelonephritis with nephrolithiasis Left-sided pyelonephritis with nephrolithiasis: s/p IR 8 [place] nephrostomy tube placed into his left kidney. Urine culture negative. Continue antibiotics per ID LLL pneumonia v/s lung infarct. Continue antibiotics and follow-up imaging. Large right acute occlusive PE at right main pulmonary artery and left lower lobe PE with associated pulmonary infarct: patient with evidence of right heart dysfunction. S/p Successful thrombectomy of the right lobar and main pulmonary artery pulmonary embolisms on 02/19, not a candidate for thrombolytic therapy due to recent placement of his nephrostomy tube. Accelerated HTN. Continue antihypertensive medications. Deconditioning. PT evaluation. History Interval history: No new issues overnight. Hospitalist Physical - Constitutional Vitals: Temp Pulse Resp BP Pulse Ox 100.3 F H 100 H 20 133/87 94 02/21/19 05:22 02/21/19 05:22 02/21/19 05:22 02/21/19 05:22 02/21/19 08:37 General appearance: Present: no acute distress - EENT Eyes: Present: PERRL, EOM intact ENT: hearing intact, clear oral mucosa, dentition normal - Neck Neck: Present: supple, normal ROM - Respiratory Respiratory effort: normal Respiratory: bilateral: CTA - Cardiovascular Rhythm: regular Heart Sounds: Present: S1 & S2. Absent: gallop, rub - Extremities Extremities: no ischemia, No edema, Full ROM - Abdominal General gastrointestinal: soft, non-tender, non-distended, normal bowel sounds - Integumentary Integumentary: Present: clear, warm, dry - Neurologic Neurologic: CNII-XII intact, moves all extremities Results - Labs CBC & Chem 7: 02/20/19 05:07 02/20/19 05:00 Labs: Laboratory Last Values WBC 13.4 K/mm3 (4.5-11.0) H 02/19/19 03:39 RBC 4.30 M/mm3 (3.65-5.03) 02/19/19 03:39 Hgb 12.5 gm/dl (11.8-15.2) 02/20/19 05:07 Hct 37.6 % (35.5-45.6) 02/20/19 05:07 MCV 95 fl (84-94) H 02/19/19 03:39 MCH 32 pg (28-32) 02/19/19 03:39 MCHC 34 % (32-34) 02/19/19 03:39 RDW 14.0 % (13.2-15.2) 02/19/19 03:39 Plt Count 265 K/mm3 (140-440) 02/20/19 05:07 Lymph % (Auto) 12.7 % (13.4-35.0) L 02/17/19 05:45 [place] % (Auto) 8.4 % (0.0-7.3) H 02/17/19 05:45 Eos % (Auto) 0.7 % (0.0-4.3) 02/17/19 05:45 Baso % (Auto) 0.3 % (0.0-1.8) 02/17/19 05:45 Lymph # 1.9 K/mm3 (1.2-5.4) 02/17/19 05:45 [place] # 1.2 K/mm3 (0.0-0.8) H 02/17/19 05:45 Eos # 0.1 K/mm3 (0.0-0.4) 02/17/19 05:45 Baso # 0.1 K/mm3 (0.0-0.1) 02/17/19 05:45 Seg Neutrophils % 77.9 % (40.0-70.0) H 02/17/19 05:45 Seg Neutrophils # 11.5 K/mm3 (1.8-7.7) H 02/17/19 05:45 PT 15.2 Sec. (12.2-14.9) H 02/18/19 15:47 INR 1.23 (0.87-1.13) H 02/18/19 15:47 APTT 29.5 Sec. (24.2-36.6) 02/18/19 15:47 > 20462 ng/mlDDU (0-234) H 02/18/19 13:17 Heparin Anti-Xa Level < 0.10 U.I./ml (0.3-0.7) L 02/20/19 11:41 POC ABG pH 7.439 (7.35-7.45) 02/18/19 21:02 POC ABG pCO2 37.8 (35-45) 02/18/19 21:02 POC ABG pO2 238 (80-105) H 02/18/19 21:02 POC ABG HCO3 25.6 (22-26 mml/L) 02/18/19 21:02 POC ABG Total CO2 27 (23-27mmol/L) 02/18/19 21:02 POC ABG O2 Sat 100 02/18/19 21:02 POC ABG Base Excess 1 ((-2) - (+3)mmol/L) 02/18/19 21:02 100 % 02/18/19 21:02 Sodium 139 mmol/L (137-145) 02/20/19 05:00 Potassium 3.9 mmol/L (3.6-5.0) D 02/20/19 05:00 Chloride 101.4 mmol/L (98-107) 02/20/19 05:00 Carbon Dioxide 24 mmol/L (22-30) 02/20/19 05:00 18 mmol/L 02/20/19 05:00 BUN 9 mg/dL (9-20) 02/20/19 05:00 0.6 mg/dL (0.8-1.5) L 02/20/19 05:00 Estimated GFR > 60 ml/min 02/20/19 05:00 15 % 02/20/19 05:00 Glucose 115 mg/dL (75-100) H 02/20/19 05:00 POC Glucose 116 (70-105) H 02/20/19 16:32 5.8 % (4-6) 02/16/19 10:34 Lactic Acid 1.40 mmol/L (0.7-2.0) 02/16/19 13:12 Calcium 8.0 mg/dL (8.4-10.2) L 02/20/19 05:00 Phosphorus 2.20 mg/dL (2.5-4.5) L 02/18/19 05:27 Magnesium 1.90 mg/dL (1.7-2.3) 02/20/19 11:41 0.80 mg/dL (0.1-1.2) 02/17/19 05:45 0.4 mg/dL (0-0.2) H 02/16/19 10:34 0.8 mg/dL 02/16/19 10:34 AST 19 units/L (5-40) 02/17/19 05:45 ALT 37 units/L (7-56) 02/17/19 05:45 63 units/L (35-129) 02/17/19 05:45 0.057 ng/mL (0.00-0.029) H 02/18/19 18:05 7.0 g/dL (6.3-8.2) 02/17/19 05:45 2.8 g/dL (3.9-5) L 02/17/19 05:45 0.7 % 02/17/19 05:45 Triglycerides 70 mg/dL (2-149) 02/18/19 18:05 Cholesterol 109 mg/dL (50-199) 02/18/19 18:05 72 mg/dL (50-130) 02/18/19 18:05 26 mg/dL (40-59) L 02/18/19 18:05 4.19 % 02/18/19 18:05 Yellow (Yellow) 02/16/19 13:16 Hazy (Clear) 02/16/19 13:16 6.0 (5.0-7.0) 02/16/19 13:16 Ur Specific [facility] 1.018 (1.003-1.030) 02/16/19 13:16 <15 mg/dl mg/dL (Negative) 02/16/19 13:16 Neg mg/dL (Negative) 02/16/19 13:16 20 mg/dL (Negative) 02/16/19 13:16 Sm (Negative) 02/16/19 13:16 Neg (Negative) 02/16/19 13:16 Neg (Negative) 02/16/19 13:16 < 2.0 mg/dL (<2.0) 02/16/19 13:16 Ur Leukocyte Esterase Sm (Negative) 02/16/19 13:16 19.0 /HPF (0.0-6.0) H 02/16/19 13:16 7.0 /HPF (0.0-6.0) 02/16/19 13:16 U Epithel Cells (Auto) 2.0 /HPF (0-13.0) 02/16/19 13:16 Few /HPF 02/16/19 13:16 Active Medications - Current Medications Current Medications: Generic Name Dose Route Start Last Admin Trade Name Karthik PRN Reason Stop Dose Admin Acetaminophen 650 mg 02/16/19 19:42 02/21/19 06:25 Tylenol PO 650 mg Q4H PRN Administration Pain MILD(1-3)/Fever >100.5/GOMEZ Apixaban 10 mg 02/20/19 14:00 02/21/19 09:54 Eliquis PO 02/26/19 22:01 10 mg Q12HR MIGUEL Administration Protocol Apixaban 5 mg 02/27/19 10:00 Eliquis PO Q12HR MIGUEL Protocol Famotidine 20 mg 02/20/19 10:00 02/21/19 09:54 Pepcid PO 20 mg BID MIGUEL Administration Hydromorphone HCl 0.5 mg 02/16/19 17:01 02/19/19 06:26 Dilaudid IV 0.5 mg Q3H PRN Administration Pain , Severe (7-10) Cefepime HCl 2 gm in 100 mls @ 200 mls/hr 02/17/19 22:00 02/21/19 09:56 Maxipime/Ns 2 Gm/100 Ml IV 200 mls/hr Q12HR MIGUEL Administration Protocol Ondansetron HCl 4 mg 02/16/19 19:42 Zofran IV Q8H PRN Nausea And Vomiting Oxycodone/Acetaminophen 1 tab 02/16/19 19:42 02/21/19 06:58 Percocet 5/325 PO 1 tab Q6H PRN Administration Pain, Moderate (4-6) Sodium Chloride 10 ml 02/16/19 22:00 02/21/19 09:54 Sodium Chloride Flush Syringe 10 Ml IV 10 ml BID MIGUEL Administration Sodium Chloride 10 ml 02/16/19 19:42 Sodium Chloride Flush Syringe 10 Ml IV PRN PRN LINE FLUSH
--- NOTE | 2019-02-21 13:10 | Progress Note ---
Assessment and Plan 39-year-old male with submassive pulmonary embolism, and left renal calculi with obstruction with SIRS. The sub-massive pulmonary embolism was nearly a massive pulmonary embolism, and if patient was not being actively resuscitated in the hospital, he would likely have suffered cardiopulmonary arrest. He was resuscitated, and the next day underwent a percutaneous thrombectomy removing the thrombus burden from the right lung which was the larger thrombus. The left pulmonary artery thrombus was left alone. Patient will need anticoagulation for 3 months before any elective temporary discontinuation (for stone treatment). He will ultimately require anticoagulation for 6 months. Left renal calculi with obstruction. Status post left nephrostomy tube. Will need shockwave lithotripsy or PCNL. Management per urology. Discussed with patient that he will need the nephrostomy tube to prevent recurrence of SIRS Subjective Date of service: 02/21/19 Principal diagnosis: large acute pulmonary embolism, obstructing left ureteropelvic stone Interval history: Discussed with patient that he will need the nephrostomy tube in place. He will need to have at least 3 months of continuous anticoagulation before his anticoagulants and can be temporarily discontinued for procedures, but will need at least 6 months total of anticoagulation. He no longer wants to have the nephrostomy tube removed. Clear urine in the nephrostomy tube back. Right groin without hematoma and soft. Pursestring suture removed from right groin. Objective - Constitutional Vitals: Vital Signs - 12hr 02/21/19 02/21/19 02/21/19 05:22 08:37 11:44 Temperature 100.3 F H 99.6 F Pulse Rate 100 H 100 H Respiratory 20 18 Rate Blood Pressure 133/87 120/87 O2 Sat by Pulse 92 94 96 Oximetry General appearance: Present: no acute distress - EENT Eyes: EOM intact ENT: hearing intact - Respiratory Respiratory effort: normal Extremities: normal temperature, normal color - Gastrointestinal General gastrointestinal: Present: soft - Psychiatric Psychiatric: appropriate mood/affect, cooperative - Labs CBC & Chem 7: 02/20/19 05:07 02/20/19 05:00 Labs: Abnormal lab results 02/20/19 Range/Units 16:32 POC Glucose 116 H (70-105) Medications & Allergies - Medications Allergies/Adverse Reactions: Allergies No Known Allergies Allergy (Unverified 02/16/19 10:17) Home Medications: Home Medications Medication Instructions Recorded Confirmed Last Taken Type No Known Home Medications [No 02/16/19 02/16/19 Unknown History Reported Home Medications] Active Medications: Generic Name Dose Route Start Last Admin Trade Name Karthik PRN Reason Stop Dose Admin Acetaminophen 650 mg 02/16/19 19:42 02/21/19 06:25 Tylenol PO 650 mg Q4H PRN Administration Pain MILD(1-3)/Fever >100.5/GOMEZ Apixaban 10 mg 02/20/19 14:00 02/21/19 09:54 Eliquis PO 02/26/19 22:01 10 mg Q12HR MIGUEL Administration Protocol Apixaban 5 mg 02/27/19 10:00 Eliquis PO Q12HR MIGUEL Protocol Famotidine 20 mg 02/20/19 10:00 02/21/19 09:54 Pepcid PO 20 mg BID MIGUEL Administration Hydromorphone HCl 0.5 mg 02/16/19 17:01 02/19/19 06:26 Dilaudid IV 0.5 mg Q3H PRN Administration Pain , Severe (7-10) Cefepime HCl 2 gm in 100 mls @ 200 mls/hr 02/17/19 22:00 02/21/19 09:56 Maxipime/Ns 2 Gm/100 Ml IV 200 mls/hr Q12HR MIGUEL Administration Protocol Ondansetron HCl 4 mg 02/16/19 19:42 Zofran IV Q8H PRN Nausea And Vomiting Oxycodone/Acetaminophen 1 tab 02/16/19 19:42 02/21/19 06:58 Percocet 5/325 PO 1 tab Q6H PRN Administration Pain, Moderate (4-6) Sodium Chloride 10 ml 02/16/19 22:00 02/21/19 09:54 Sodium Chloride Flush Syringe 10 Ml IV 10 ml BID MIGUEL Administration Sodium Chloride 10 ml 02/16/19 19:42 Sodium Chloride Flush Syringe 10 Ml IV PRN PRN LINE FLUSH
[2019-02-22 00:55] LABS: Basophils # (Auto) 0.1 K/mm3 (0.0-0.1); Basophils % (Auto) 0.7 % (0.0-1.8); Eosinophils # (Auto) 0.2 K/mm3 (0.0-0.4); Eosinophils % (Auto) 0.9 % (0.0-4.3); Hematocrit 34.6 % (35.5-45.6); Lymphocytes # (Auto) 2.2 K/mm3 (1.2-5.4); Lymphocytes % (Auto) 13.5 % (13.4-35.0); Mean Corpuscular HGB Conc 35 % (32-34); Mean Corpuscular Volume 94 fl (84-94); Monocytes # (Auto) 1.8 K/mm3 (0.0-0.8); Platelet Count 325 K/mm3 (140-440); Red Blood Count 3.69 M/mm3 (3.65-5.03); Red Cell Distribution Width 13.7 % (13.2-15.2)
[2019-02-22] MEDS: TYLENOL PO PRN ×2 (01:12→18:48)
--- NOTE | 2019-02-22 08:50 | Progress Note ---
Assessment and Plan Cultures: 02/16/2019 blood culture: No growth 02/16/2019 urine culture: <10 mixed A/P: 39/M with no PMH, admitted with: 1) Sepsis: continuing. Fever spike 101.9 noted. Still leukocytosis. unclear etiology possible persistant UTI or PE., secondary to left-sided pyelonephritis with nephrolithiasis 2) Left-sided pyelonephritis with nephrolithiasis: s/p IR 8 Croatian nephrostomy tube placed into his left kidney. Urine culture not impressive- Management per urology 3) ?LLL pneumonia v/s lung infarct 4) Large right acute occlusive PE at right main pulmonary artery and left lower lobe PE with associated pulmonary infarct: patient with evidence of right heart dysfunction. S/p Successful thrombectomy of the right lobar and main pulmonary artery pulmonary embolisms on 02/19 5) Acute respiratory failure: due to large PE, not a candidate for thrombolytic therapy due to recent placement of his nephrostomy tube. 6) HTN urgency Recs: Continue IV Cefepime for now in light of fevers Follow-up cultures Monitor fevers -order renal ultrasound -repeat U/A [facility] M: [phone] O:[phone] Subjective Date of service: 02/22/19 Principal diagnosis: large acute pulmonary embolism, obstructing left ureteropelvic stone Interval history: Patient seen and examined. States that he is feeling better today, no abdominal pain or generalized weakness. Fevers continuing. Objective - Exam Narrative Exam: Constitutional: Alert, cooperative. No acute distress Head, Ears, Nose: Normocephalic, atraumatic. External ears, nose normal Eyes: Conjunctivae/corneas clear. No icterus. No ptosis. Neck: Supple, no meningeal signs Oral: no thrush. Cardiovascular: S1, S2 normal. Respiratory: CTA gigi GI: Soft, non-tender; bowel sounds normal. No peritoneal signs. No Left CVA tenderness Musculoskeletal: No pedal edema, no cyanosis. Skin: No rash or abscess Hem/Lymphatic: No palpable cervical or supraclavicular nodes. No lymphangitis Psych: Mood ok. Affect normal Neurological: Awake, alert, oriented. No gross abnormality - Constitutional Vitals: Vital Signs Temp Pulse Resp BP Pulse Ox 99.1 F 96 H 24 133/94 97 02/22/19 04:12 02/22/19 04:12 02/22/19 04:12 02/22/19 04:12 02/22/19 04:12 Temperature -Last 24 Hours Temperature 99.1 F Temperature 99.1 F Temperature 101.9 F Temperature 101.9 F Temperature 100.7 F Temperature 102.4 F Temperature 99.6 F - Labs CBC & Chem 7: 02/22/19 00:22 02/20/19 05:00 Labs: Abnormal lab results 02/22/19 Range/Units 00:22 WBC 16.3 H (4.5-11.0) K/mm3 Hct 34.6 L (35.5-45.6) % MCH 33 H (28-32) pg MCHC 35 H (32-34) % [place] % (Auto) 11.0 H (0.0-7.3) % [place] # 1.8 H (0.0-0.8) K/mm3 Seg Neutrophils % 73.9 H (40.0-70.0) % Seg Neutrophils # 12.0 H (1.8-7.7) K/mm3
--- NOTE | 2019-02-22 09:09 | Progress Note ---
Assessment and Plan Acute pulmonary embolism, intermediate with right ventricular strain. s/p thrombectomy by IR of the right lobar and main pulmonary artery pulmonary embolisms Hypoxemia respiratory failure. Resolved. Secondary to PE and atelectasis/infar ction. No DVT by bilateral lower extremity Doppler analysis Pneumonia versus pulmonary infarct. Some fever but no other symptoms. Reportedly completing antibiotics today Left nephrostomy Nephrolithiasis Hypokalemia. Corrected Recommendations Continue anticoagulation and transition to OAC's Watch for bleeding Complete antibiotics per ID as scheduled Nephrostomy tube removal per IMS and interventional, urology The discharge home from pulmonary standpoint. Patient was given office business card/phone for outpatient pulmonary follow-up I discussed with patient in Uz[place] and in detail. The patient aware of recommendations, treatment plan and need for follow-up as an outpatient All questions answered. We'll sign off Subjective Date of service: 02/22/19 Principal diagnosis: large acute pulmonary embolism, obstructing left ureteropelvic stone Interval history: No events overnight. No bleeding reported. No respiratory complaints. Objective Vital Signs - 12hr 02/21/19 02/21/19 02/22/19 21:14 22:18 00:00 Temperature 100.7 F H 101.9 F H Pulse Rate 107 H Pulse Rate [ Brachial] Respiratory 17 24 22 Rate Respiratory 16 Rate [ Generalized] Blood Pressure 123/86 O2 Sat by Pulse 95 94 Oximetry 02/22/19 02/22/19 02/22/19 00:46 01:12 04:00 Temperature 101.9 F H 99.1 F Pulse Rate 104 H Pulse Rate [ 96 H Brachial] Respiratory 22 17 24 Rate Respiratory Rate [ Generalized] Blood Pressure 126/90 133/94 O2 Sat by Pulse 95 98 Oximetry 02/22/19 04:12 Temperature 99.1 F Pulse Rate 96 H Pulse Rate [ Brachial] Respiratory 24 Rate Respiratory Rate [ Generalized] Blood Pressure 133/94 O2 Sat by Pulse 97 Oximetry Constitutional: no acute distress, alert Eyes: non-icteric ENT: oropharynx moist Neck: supple, no JVD Ascultation: Bilateral: clear Cardiovascular: regular rate and rhythm Gastrointestinal: normoactive bowel sounds, non-distended, other (left nephrostomy tube without gross bleeding, yellow- reddish urine color) Integumentary: normal Extremities: no cyanosis, no edema Neurologic: normal mental status, non-focal exam CBC and BMP: 02/22/19 00:22 02/20/19 05:00 ABG, PT/INR, D-dimer: ABG POC ABG pH 7.439 (7.35-7.45) 02/18/19 21:02 POC ABG pCO2 37.8 (35-45) 02/18/19 21:02 POC ABG pO2 238 (80-105) H 02/18/19 21:02 POC ABG HCO3 25.6 (22-26 mml/L) 02/18/19 21:02 POC ABG Total CO2 27 (23-27mmol/L) 02/18/19 21:02 POC ABG O2 Sat 100 02/18/19 21:02 PT/INR, D-dimer PT 15.2 Sec. (12.2-14.9) H 02/18/19 15:47 INR 1.23 (0.87-1.13) H 02/18/19 15:47 > 21208 ng/mlDDU (0-234) H 02/18/19 13:17 Abnormal lab findings: Abnormal Labs 02/16/19 02/16/19 02/16/19 10:34 10:34 10:34 WBC 18.4 H Hgb 15.8 H Hct 46.7 H MCV MCH MCHC Lymph % (Auto) 9.4 L [place] % (Auto) 8.2 H [place] # 1.5 H Seg Neutrophils % 81.9 H Seg Neutrophils # 15.1 H PT INR D-Dimer Heparin Anti-Xa Level POC ABG pH POC ABG pCO2 POC ABG pO2 Sodium 131 L Potassium 3.4 L Chloride 90.3 L BUN Creatinine Glucose 128 H POC Glucose Calcium Phosphorus Direct Bilirubin 0.4 H ALT 62 H 62 H Troponin T Total Protein 8.7 H 8.7 H Albumin 3.4 L 3.4 L HDL Cholesterol Urine WBC (Auto) 02/16/19 02/17/19 02/17/19 13:16 05:45 05:45 WBC 14.7 H Hgb Hct MCV 95 H MCH MCHC Lymph % (Auto) 12.7 L [place] % (Auto) 8.4 H [place] # 1.2 H Seg Neutrophils % 77.9 H Seg Neutrophils # 11.5 H PT INR D-Dimer Heparin Anti-Xa Level POC ABG pH POC ABG pCO2 POC ABG pO2 Sodium Potassium 3.3 L Chloride BUN Creatinine 0.7 L Glucose 111 H POC Glucose Calcium 8.0 L Phosphorus Direct Bilirubin ALT Troponin T Total Protein Albumin 2.8 L HDL Cholesterol Urine WBC (Auto) 19.0 H 02/18/19 02/18/19 02/18/19 05:27 05:27 12:51 WBC 13.8 H Hgb Hct MCV MCH MCHC Lymph % (Auto) [place] % (Auto) [place] # Seg Neutrophils % Seg Neutrophils # PT INR D-Dimer Heparin Anti-Xa Level POC ABG pH POC ABG pCO2 POC ABG pO2 Sodium Potassium 3.1 L Chloride BUN 7 L Creatinine 0.6 L Glucose 115 H POC Glucose 123 H Calcium Phosphorus 2.20 L Direct Bilirubin ALT Troponin T Total Protein Albumin HDL Cholesterol Urine WBC (Auto) 02/18/19 02/18/19 02/18/19 13:17 13:17 13:17 WBC 18.4 H Hgb Hct MCV 95 H MCH MCHC Lymph % (Auto) [place] % (Auto) [place] # Seg Neutrophils % Seg Neutrophils # PT INR D-Dimer > 55081 H Heparin Anti-Xa Level POC ABG pH POC ABG pCO2 POC ABG pO2 Sodium Potassium Chloride BUN 8 L Creatinine 0.6 L Glucose 118 H POC Glucose Calcium Phosphorus Direct Bilirubin ALT Troponin T Total Protein Albumin HDL Cholesterol Urine WBC (Auto) 02/18/19 02/18/19 02/18/19 14:29 15:47 18:05 WBC Hgb Hct MCV MCH MCHC Lymph % (Auto) [place] % (Auto) [place] # Seg Neutrophils % Seg Neutrophils # PT 15.2 H INR 1.23 H D-Dimer Heparin Anti-Xa Level POC ABG pH 7.480 H POC ABG pCO2 32.1 L POC ABG pO2 65 L Sodium Potassium Chloride BUN Creatinine Glucose POC Glucose Calcium Phosphorus Direct Bilirubin ALT Troponin T 0.057 H Total Protein Albumin HDL Cholesterol 26 L Urine WBC (Auto) 02/18/19 02/18/19 02/19/19 21:02 22:46 01:58 WBC Hgb Hct MCV MCH MCHC Lymph % (Auto) [place] % (Auto) [place] # Seg Neutrophils % Seg Neutrophils # PT INR D-Dimer Heparin Anti-Xa Level 0.10 L POC ABG pH POC ABG pCO2 POC ABG pO2 238 H Sodium Potassium Chloride BUN Creatinine Glucose POC Glucose 122 H Calcium Phosphorus Direct Bilirubin ALT Troponin T Total Protein Albumin HDL Cholesterol Urine WBC (Auto) 02/19/19 02/19/19 02/19/19 03:39 03:39 06:39 WBC 13.4 H Hgb Hct MCV 95 H MCH MCHC Lymph % (Auto) [place] % (Auto) [place] # Seg Neutrophils % Seg Neutrophils # PT INR D-Dimer Heparin Anti-Xa Level POC ABG pH POC ABG pCO2 POC ABG pO2 Sodium Potassium 3.0 L Chloride BUN 8 L Creatinine 0.6 L Glucose 130 H POC Glucose 122 H Calcium 8.3 L Phosphorus Direct Bilirubin ALT Troponin T Total Protein Albumin HDL Cholesterol Urine WBC (Auto) 02/19/19 02/19/19 02/19/19 07:28 08:10 10:43 WBC Hgb Hct MCV MCH MCHC Lymph % (Auto) [place] % (Auto) [place] # Seg Neutrophils % Seg Neutrophils # PT INR D-Dimer Heparin Anti-Xa Level 0.22 L POC ABG pH POC ABG pCO2 POC ABG pO2 Sodium Potassium Chloride BUN Creatinine Glucose POC Glucose 123 H 137 H Calcium Phosphorus Direct Bilirubin ALT Troponin T Total Protein Albumin HDL Cholesterol Urine WBC (Auto) 02/19/19 02/19/19 02/19/19 15:41 15:46 21:28 WBC Hgb Hct MCV MCH MCHC Lymph % (Auto) [place] % (Auto) [place] # Seg Neutrophils % Seg Neutrophils # PT INR D-Dimer Heparin Anti-Xa Level 0.88 H POC ABG pH POC ABG pCO2 POC ABG pO2 Sodium Potassium Chloride BUN Creatinine Glucose POC Glucose 147 H 135 H Calcium Phosphorus Direct Bilirubin ALT Troponin T Total Protein Albumin HDL Cholesterol Urine WBC (Auto) 02/20/19 02/20/19 02/20/19 00:38 01:53 05:00 WBC Hgb Hct MCV MCH MCHC Lymph % (Auto) [place] % (Auto) [place] # Seg Neutrophils % Seg Neutrophils # PT INR D-Dimer Heparin Anti-Xa Level 0.17 L POC ABG pH POC ABG pCO2 POC ABG pO2 Sodium Potassium Chloride BUN Creatinine 0.6 L Glucose 115 H POC Glucose 115 H Calcium 8.0 L Phosphorus Direct Bilirubin ALT Troponin T Total Protein Albumin HDL Cholesterol Urine WBC (Auto) 02/20/19 02/20/19 02/20/19 06:03 11:41 11:50 WBC Hgb Hct MCV MCH MCHC Lymph % (Auto) [place] % (Auto) [place] # Seg Neutrophils % Seg Neutrophils # PT INR D-Dimer Heparin Anti-Xa Level < 0.10 L POC ABG pH POC ABG pCO2 POC ABG pO2 Sodium Potassium Chloride BUN Creatinine Glucose POC Glucose 114 H 116 H Calcium Phosphorus Direct Bilirubin ALT Troponin T Total Protein Albumin HDL Cholesterol Urine WBC (Auto) 02/20/19 02/22/19 16:32 00:22 WBC 16.3 H Hgb Hct 34.6 L MCV MCH 33 H MCHC 35 H Lymph % (Auto) [place] % (Auto) 11.0 H [place] # 1.8 H Seg Neutrophils % 73.9 H Seg Neutrophils # 12.0 H PT INR D-Dimer Heparin Anti-Xa Level POC ABG pH POC ABG pCO2 POC ABG pO2 Sodium Potassium Chloride BUN Creatinine Glucose POC Glucose 116 H Calcium Phosphorus Direct Bilirubin ALT Troponin T Total Protein Albumin HDL Cholesterol Urine WBC (Auto)
[2019-02-22] MEDS: MAXIPIME/NS 2 GM/100 ML 2 GM/100 ML BAG IV SCH ×2 (10:34→21:34)
[2019-02-22] MEDS: SODIUM CHLORIDE FLUSH SYRINGE 10 ML IV SCH ×2 (10:34→21:40)
[2019-02-22] MEDS: PEPCID PO SCH ×2 (10:34→21:35)
[2019-02-22] MEDS: ELIQUIS PO SCH ×2 (10:34→21:34)
--- NOTE | 2019-02-22 10:59 | Progress Note ---
Assessment and Plan Assessment and plan: Acute hypoxic respiratory failure. Etiology multifactorial secondary to sepsis, pneumonia and large right PE. Continue O2 for supportive care. Sepsis: fever persistent with leukocytosis worse; etiology secondary to pyelonephritis with nephrolithiasis. ID following. Continue cefepime 2 g every 12 hours and follow cultures. Left-sided pyelonephritis with nephrolithiasis: s/p IR 8 [place]oese nephrostomy tube placed into his left kidney. Urine culture negative. Continue antibiotics per ID LLL pneumonia v/s lung infarct. Continue antibiotics and follow-up imaging. Large right acute occlusive PE at right main pulmonary artery and left lower lobe PE with associated pulmonary infarct: patient with evidence of right heart dysfunction. S/p Successful thrombectomy of the right lobar and main pulmonary artery pulmonary embolisms on 02/19, not a candidate for thrombolytic therapy due to recent placement of his nephrostomy tube. Accelerated HTN. Continue antihypertensive medications. Deconditioning. PT evaluation. History Interval history: Patient with fevers. Hospitalist Physical - Constitutional Vitals: Temp Pulse Resp BP Pulse Ox 99.1 F 96 H 24 133/94 97 02/22/19 04:12 02/22/19 04:12 02/22/19 04:12 02/22/19 04:12 02/22/19 09:15 General appearance: Present: no acute distress - EENT Eyes: Present: PERRL, EOM intact ENT: hearing intact, clear oral mucosa, dentition normal - Neck Neck: Present: supple, normal ROM - Respiratory Respiratory effort: normal Respiratory: bilateral: CTA - Cardiovascular Rhythm: regular Heart Sounds: Present: S1 & S2. Absent: gallop, rub - Extremities Extremities: no ischemia, No edema, Full ROM - Abdominal General gastrointestinal: soft, non-tender, non-distended, normal bowel sounds - Integumentary Integumentary: Present: clear, warm, dry - Neurologic Neurologic: CNII-XII intact, moves all extremities Results - Labs CBC & Chem 7: 02/22/19 00:22 02/20/19 05:00 Labs: Laboratory Last Values WBC 16.3 K/mm3 (4.5-11.0) H 02/22/19 00:22 RBC 3.69 M/mm3 (3.65-5.03) 02/22/19 00:22 Hgb 12.0 gm/dl (11.8-15.2) 02/22/19 00:22 Hct 34.6 % (35.5-45.6) L 02/22/19 00:22 MCV 94 fl (84-94) 02/22/19 00:22 MCH 33 pg (28-32) H 02/22/19 00:22 MCHC 35 % (32-34) H 02/22/19 00:22 RDW 13.7 % (13.2-15.2) 02/22/19 00:22 Plt Count 325 K/mm3 (140-440) 02/22/19 00:22 Lymph % (Auto) 13.5 % (13.4-35.0) 02/22/19 00:22 [place] % (Auto) 11.0 % (0.0-7.3) H 02/22/19 00:22 Eos % (Auto) 0.9 % (0.0-4.3) 02/22/19 00:22 Baso % (Auto) 0.7 % (0.0-1.8) 02/22/19 00:22 Lymph # 2.2 K/mm3 (1.2-5.4) 02/22/19 00:22 [place] # 1.8 K/mm3 (0.0-0.8) H 02/22/19 00:22 Eos # 0.2 K/mm3 (0.0-0.4) 02/22/19 00:22 Baso # 0.1 K/mm3 (0.0-0.1) 02/22/19 00:22 Seg Neutrophils % 73.9 % (40.0-70.0) H 02/22/19 00:22 Seg Neutrophils # 12.0 K/mm3 (1.8-7.7) H 02/22/19 00:22 PT 15.2 Sec. (12.2-14.9) H 02/18/19 15:47 INR 1.23 (0.87-1.13) H 02/18/19 15:47 APTT 29.5 Sec. (24.2-36.6) 02/18/19 15:47 > 19308 ng/mlDDU (0-234) H 02/18/19 13:17 Heparin Anti-Xa Level < 0.10 U.I./ml (0.3-0.7) L 02/20/19 11:41 POC ABG pH 7.439 (7.35-7.45) 02/18/19 21:02 POC ABG pCO2 37.8 (35-45) 02/18/19 21:02 POC ABG pO2 238 (80-105) H 02/18/19 21:02 POC ABG HCO3 25.6 (22-26 mml/L) 02/18/19 21:02 POC ABG Total CO2 27 (23-27mmol/L) 02/18/19 21:02 POC ABG O2 Sat 100 02/18/19 21:02 POC ABG Base Excess 1 ((-2) - (+3)mmol/L) 02/18/19 21:02 100 % 02/18/19 21:02 Sodium 139 mmol/L (137-145) 02/20/19 05:00 Potassium 3.9 mmol/L (3.6-5.0) D 02/20/19 05:00 Chloride 101.4 mmol/L (98-107) 02/20/19 05:00 Carbon Dioxide 24 mmol/L (22-30) 02/20/19 05:00 18 mmol/L 02/20/19 05:00 BUN 9 mg/dL (9-20) 02/20/19 05:00 0.6 mg/dL (0.8-1.5) L 02/20/19 05:00 Estimated GFR > 60 ml/min 02/20/19 05:00 15 % 02/20/19 05:00 Glucose 115 mg/dL (75-100) H 02/20/19 05:00 POC Glucose 96 (70-105) 02/21/19 07:51 5.8 % (4-6) 02/16/19 10:34 Lactic Acid 1.40 mmol/L (0.7-2.0) 02/16/19 13:12 Calcium 8.0 mg/dL (8.4-10.2) L 02/20/19 05:00 Phosphorus 2.20 mg/dL (2.5-4.5) L 02/18/19 05:27 Magnesium 1.90 mg/dL (1.7-2.3) 02/20/19 11:41 0.80 mg/dL (0.1-1.2) 02/17/19 05:45 0.4 mg/dL (0-0.2) H 02/16/19 10:34 0.8 mg/dL 02/16/19 10:34 AST 19 units/L (5-40) 02/17/19 05:45 ALT 37 units/L (7-56) 02/17/19 05:45 63 units/L (35-129) 02/17/19 05:45 0.057 ng/mL (0.00-0.029) H 02/18/19 18:05 7.0 g/dL (6.3-8.2) 02/17/19 05:45 2.8 g/dL (3.9-5) L 02/17/19 05:45 0.7 % 02/17/19 05:45 Triglycerides 70 mg/dL (2-149) 02/18/19 18:05 Cholesterol 109 mg/dL (50-199) 02/18/19 18:05 72 mg/dL (50-130) 02/18/19 18:05 26 mg/dL (40-59) L 02/18/19 18:05 4.19 % 02/18/19 18:05 Yellow (Yellow) 02/16/19 13:16 Hazy (Clear) 02/16/19 13:16 6.0 (5.0-7.0) 02/16/19 13:16 Ur Specific [place] 1.018 (1.003-1.030) 02/16/19 13:16 <15 mg/dl mg/dL (Negative) 02/16/19 13:16 Neg mg/dL (Negative) 02/16/19 13:16 20 mg/dL (Negative) 02/16/19 13:16 Sm (Negative) 02/16/19 13:16 Neg (Negative) 02/16/19 13:16 Neg (Negative) 02/16/19 13:16 < 2.0 mg/dL (<2.0) 02/16/19 13:16 Ur Leukocyte Esterase Sm (Negative) 02/16/19 13:16 19.0 /HPF (0.0-6.0) H 02/16/19 13:16 7.0 /HPF (0.0-6.0) 02/16/19 13:16 U Epithel Cells (Auto) 2.0 /HPF (0-13.0) 02/16/19 13:16 Few /HPF 02/16/19 13:16 Active Medications - Current Medications Current Medications: Generic Name Dose Route Start Last Admin Trade Name Larryq PRN Reason Stop Dose Admin Acetaminophen 650 mg 02/16/19 19:42 02/22/19 01:12 Tylenol PO 650 mg Q4H PRN Administration Pain MILD(1-3)/Fever >100.5/GOMEZ Apixaban 10 mg 02/20/19 14:00 02/22/19 10:34 Eliquis PO 02/26/19 22:01 10 mg Q12HR MIGUEL Administration Protocol Apixaban 5 mg 02/27/19 10:00 Eliquis PO Q12HR MIGUEL Protocol Famotidine 20 mg 02/20/19 10:00 02/22/19 10:34 Pepcid PO 20 mg BID MIGUEL Administration Hydromorphone HCl 0.5 mg 02/16/19 17:01 02/19/19 06:26 Dilaudid IV 0.5 mg Q3H PRN Administration Pain , Severe (7-10) Cefepime HCl 2 gm in 100 mls @ 200 mls/hr 02/17/19 22:00 02/22/19 10:34 Maxipime/Ns 2 Gm/100 Ml IV 200 mls/hr Q12HR MIGUEL Administration Protocol Ondansetron HCl 4 mg 02/16/19 19:42 Zofran IV Q8H PRN Nausea And Vomiting Oxycodone/Acetaminophen 1 tab 02/16/19 19:42 02/21/19 21:14 Percocet 5/325 PO 1 tab Q6H PRN Administration Pain, Moderate (4-6) Sodium Chloride 10 ml 02/16/19 22:00 02/22/19 10:34 Sodium Chloride Flush Syringe 10 Ml IV 10 ml BID MIGUEL Administration Sodium Chloride 10 ml 02/16/19 19:42 Sodium Chloride Flush Syringe 10 Ml IV PRN PRN LINE FLUSH
--- NOTE | 2019-02-22 18:27 | XRay Report ---
PROCEDURE: XR CHEST ROUTINE 2V TECHNIQUE: PA and lateral chest radiographs were obtained. HISTORY: left lower lung opacity COMPARISONS: CXR 02/18/2019. FINDINGS: Heart: Normal. Mediastinum/Vessels: Normal. Lungs/Pleural space: Mild opacity in the left lung base has improved but residual still remains. Fin dings suggest improving pneumonia.. Bony thorax: No acute osseous abnormality. IMPRESSION: Improving infiltrate in the left lower lobe but residual still remains.. This document is electronically signed by Freda Roque MD., February 22 2019 06:25:09 PM ET
[2019-02-22 20:46] LABS: Bilirubin,Urine NEG (Negative); Blood,Urine MOD (Negative); Color,Urine Yellow (Yellow); Protein,Urine <15 mg/dL mg/dL (Negative); RBC,Urine < 1.0 /HPF (0.0-6.0); Urobilinogen,Urine < 2.0 mg/dL (<2.0)
--- NOTE | 2019-02-23 07:39 | Ultrasound Report ---
ULTRASOUND RENAL INDICATION: Fever, leukocytosis, persistent UTI, pyelonephritis, pulmonary embolism. COMPARISON: 02/16/2019 CT. FINDINGS: Renal sonography suggests normal renal cortical echogenicity. Preserved renal contours. No significant hydronephrosis. Echogenic imaged liver. RIGHT KIDNEY measures 13.3 x 6.9 x 6.2 cm with cortical thickness of 2.2 cm. Approximately 2 x 1 cm corticomedullary junction cyst superiorly, image 7. Few tiny nonspecific echogenic foci in this patient with a couple of small mid to lower renal nonobstructing calculi measuring 0.5 cm or smaller also noted on previous CT. LEFT KIDNEY estimated at 12.1 x 6.3 x 5.8 cm with cortical thickness of 1.4 cm. Slight residual fullness of upper pole collecting system. Couple of tiny nonspecific echogenic foci as on image 28 in this patient with nephrolithiasis and greater hydronephrosis also noted on prior CT. Questionable stent. URINARY BLADDER suboptimally distended and assessed. CONCLUSION: No acute significant renal sonographic abnormality in this patient with improved left hydronephrosis since 02/16/2019, known nephrolithiasis and possible fatty liver, amongst others, as detailed above. Please correlate. Thank you for the opportunity to participate in this patient's care.
[2019-02-23 08:02] LABS: Basophils # (Auto) 0.1 K/mm3 (0.0-0.1); Basophils % (Auto) 1.1 % (0.0-1.8); Eosinophils # (Auto) 0.1 K/mm3 (0.0-0.4); Eosinophils % (Auto) 1.3 % (0.0-4.3); Hematocrit 36.3 % (35.5-45.6); Hemoglobin 12.3 gm/dl (11.8-15.2); Lymphocytes # (Auto) 1.4 K/mm3 (1.2-5.4); Lymphocytes % (Auto) 14.3 % (13.4-35.0); Mean Corpuscular HGB Conc 34 % (32-34); Mean Corpuscular Volume 95 fl (84-94); Monocytes # (Auto) 0.9 K/mm3 (0.0-0.8); Monocytes % (Auto) 9.4 % (0.0-7.3); Platelet Count 430 K/mm3 (140-440); Red Blood Count 3.83 M/mm3 (3.65-5.03); Red Cell Distribution Width 13.7 % (13.2-15.2)
[2019-02-23 08:23] LABS: BUN/Creatinine Ratio 20; Blood Urea Nitrogen 10 mg/dL (9-20); Calcium 8.6 mg/dL (8.4-10.2); Hemolysis Index 0
--- NOTE | 2019-02-23 09:07 | Progress Note ---
Assessment and Plan Cultures: 02/16/2019 blood culture: No growth 02/16/2019 urine culture: <10 mixed A/P: 39/M with no PMH, admitted with: 1) Sepsis: continuing. Fever spike continuing, 102.0 . unclear etiology possible PE vs drug fever. Will discontinue Cefepime. 2) Left-sided pyelonephritis with nephrolithiasis: s/p IR 8 [place] nephrostomy tube placed into his left kidney. Urine culture not impressive. repeat UA negative. Renal US shows improved left hydronephrosis since 02/16/2019, known nephrolithiasis and possible fatty liver. 3) ?LLL pneumonia v/s lung infarct 4) Large right acute occlusive PE at right main pulmonary artery and left lower lobe PE with associated pulmonary infarct: patient with evidence of right heart dysfunction. S/p Successful thrombectomy of the right lobar and main pulmonary artery pulmonary embolisms on 02/19 5) Acute respiratory failure: due to large PE, not a candidate for thrombolytic therapy due to recent placement of his nephrostomy tube. 6) HTN urgency Recs: Monitor fevers repeat blood cultures discontinue Cefepime- possible drug fever monitor off antibiotics Dr. Rodriguez will be inspection supervisor this weekend [phone], please call for questions. Micaela Kwong NP [facility] M: [phone] O:[phone] Subjective Date of service: 02/23/19 Principal diagnosis: large acute pulmonary embolism, obstructing left ureteropelvic stone Interval history: Patient seen and examined. States that he is feeling better today, no abdominal pain or generalized weakness. Fevers continuing. Objective - Exam Narrative Exam: Constitutional: Alert, cooperative. No acute distress Head, Ears, Nose: Normocephalic, atraumatic. External ears, nose normal Eyes: Conjunctivae/corneas clear. No icterus. No ptosis. Neck: Supple, no meningeal signs Oral: no thrush. Cardiovascular: S1, S2 normal. Respiratory: CTA gigi GI: Soft, non-tender; bowel sounds normal. No peritoneal signs. No Left CVA tenderness Musculoskeletal: No pedal edema, no cyanosis. Skin: No rash or abscess Hem/Lymphatic: No palpable cervical or supraclavicular nodes. No lymphangitis Psych: Mood ok. Affect normal Neurological: Awake, alert, oriented. No gross abnormality - Constitutional Vitals: Vital Signs Temp Pulse Resp BP Pulse Ox 98.4 F 102 H 18 130/86 96 02/23/19 05:25 02/23/19 05:25 02/23/19 05:25 02/23/19 05:25 02/23/19 09:05 Temperature -Last 24 Hours Temperature 98.4 F Temperature 98.6 F Temperature 102.0 F Temperature 98.5 F - Labs CBC & Chem 7: 02/23/19 07:25 02/23/19 07:25 Labs: Abnormal lab results 02/22/19 02/22/19 02/23/19 Range/Units 11:21 15:55 00:06 MCV (84-94) fl [place] % (Auto) (0.0-7.3) % [place] # (0.0-0.8) K/mm3 Seg Neutrophils % (40.0-70.0) % Potassium (3.6-5.0) mmol/L Chloride (98-107) mmol/L Creatinine (0.8-1.5) mg/dL Glucose (75-100) mg/dL POC Glucose 133 H 131 H 112 H (70-105) 02/23/19 02/23/19 Range/Units 07:25 07:25 MCV 95 H (84-94) fl [place] % (Auto) 9.4 H (0.0-7.3) % [place] # 0.9 H (0.0-0.8) K/mm3 Seg Neutrophils % 73.9 H (40.0-70.0) % Potassium 3.2 L (3.6-5.0) mmol/L Chloride 97.7 L (98-107) mmol/L Creatinine 0.5 L (0.8-1.5) mg/dL Glucose 107 H (75-100) mg/dL POC Glucose (70-105)
[2019-02-23] MEDS: MAXIPIME/NS 2 GM/100 ML 2 GM/100 ML BAG IV SCH (10:00)
[2019-02-23] MEDS: ELIQUIS PO SCH ×2 (10:01→21:33)
[2019-02-23] MEDS: PEPCID PO SCH ×2 (10:01→21:33)
[2019-02-23] MEDS: SODIUM CHLORIDE FLUSH SYRINGE 10 ML IV SCH ×2 (10:02→21:33)
--- NOTE | 2019-02-23 16:16 | Progress Note ---
Assessment and Plan Assessment and plan: Acute hypoxic respiratory failure. Etiology multifactorial secondary to sepsis, pneumonia and large right PE. Continue O2 for supportive care. Sepsis: fever persistent with leukocytosis worse; etiology secondary to pyelonephritis with nephrolithiasis. ID following. Continue cefepime 2 g every 12 hours and follow cultures. Left-sided pyelonephritis with nephrolithiasis: s/p IR 8 [place] nephrostomy tube placed into his left kidney. Urine culture negative. Continue antibiotics per ID LLL pneumonia v/s lung infarct. Continue antibiotics and follow-up imaging. Large right acute occlusive PE at right main pulmonary artery and left lower lobe PE with associated pulmonary infarct: patient with evidence of right heart dysfunction. S/p Successful thrombectomy of the right lobar and main pulmonary artery pulmonary embolisms on 02/19, not a candidate for thrombolytic therapy due to recent placement of his nephrostomy tube. Hypokalemia. Replete potassium Accelerated HTN. Continue antihypertensive medications. Deconditioning. PT evaluation. History Interval history: No new issues overnight Hospitalist Physical - Constitutional Vitals: Temp Pulse Resp BP Pulse Ox 98.7 F 102 H 18 134/89 96 02/23/19 11:34 02/23/19 11:34 02/23/19 11:34 02/23/19 11:34 02/23/19 11:34 General appearance: Present: no acute distress - EENT Eyes: Present: PERRL, EOM intact ENT: hearing intact, clear oral mucosa, dentition normal - Neck Neck: Present: supple, normal ROM - Respiratory Respiratory effort: normal Respiratory: bilateral: CTA - Cardiovascular Rhythm: regular Heart Sounds: Present: S1 & S2. Absent: gallop, rub - Extremities Extremities: no ischemia, No edema, Full ROM - Abdominal General gastrointestinal: soft, non-tender, non-distended, normal bowel sounds - Integumentary Integumentary: Present: clear, warm, dry - Neurologic Neurologic: CNII-XII intact, moves all extremities Results - Labs CBC & Chem 7: 02/23/19 07:25 02/23/19 07:25 Labs: Laboratory Last Values WBC 9.8 K/mm3 (4.5-11.0) 02/23/19 07:25 RBC 3.83 M/mm3 (3.65-5.03) 02/23/19 07:25 Hgb 12.3 gm/dl (11.8-15.2) 02/23/19 07:25 Hct 36.3 % (35.5-45.6) 02/23/19 07:25 MCV 95 fl (84-94) H 02/23/19 07:25 MCH 32 pg (28-32) 02/23/19 07:25 MCHC 34 % (32-34) 02/23/19 07:25 RDW 13.7 % (13.2-15.2) 02/23/19 07:25 Plt Count 430 K/mm3 (140-440) 02/23/19 07:25 Lymph % (Auto) 14.3 % (13.4-35.0) 02/23/19 07:25 [place] % (Auto) 9.4 % (0.0-7.3) H 02/23/19 07:25 Eos % (Auto) 1.3 % (0.0-4.3) 02/23/19 07:25 Baso % (Auto) 1.1 % (0.0-1.8) 02/23/19 07:25 Lymph # 1.4 K/mm3 (1.2-5.4) 02/23/19 07:25 [place] # 0.9 K/mm3 (0.0-0.8) H 02/23/19 07:25 Eos # 0.1 K/mm3 (0.0-0.4) 02/23/19 07:25 Baso # 0.1 K/mm3 (0.0-0.1) 02/23/19 07:25 Seg Neutrophils % 73.9 % (40.0-70.0) H 02/23/19 07:25 Seg Neutrophils # 7.2 K/mm3 (1.8-7.7) 02/23/19 07:25 PT 15.2 Sec. (12.2-14.9) H 02/18/19 15:47 INR 1.23 (0.87-1.13) H 02/18/19 15:47 APTT 29.5 Sec. (24.2-36.6) 02/18/19 15:47 > 11847 ng/mlDDU (0-234) H 02/18/19 13:17 Heparin Anti-Xa Level < 0.10 U.I./ml (0.3-0.7) L 02/20/19 11:41 POC ABG pH 7.439 (7.35-7.45) 02/18/19 21:02 POC ABG pCO2 37.8 (35-45) 02/18/19 21:02 POC ABG pO2 238 (80-105) H 02/18/19 21:02 POC ABG HCO3 25.6 (22-26 mml/L) 02/18/19 21:02 POC ABG Total CO2 27 (23-27mmol/L) 02/18/19 21:02 POC ABG O2 Sat 100 02/18/19 21:02 POC ABG Base Excess 1 ((-2) - (+3)mmol/L) 02/18/19 21:02 100 % 02/18/19 21:02 Sodium 137 mmol/L (137-145) 02/23/19 07:25 Potassium 3.2 mmol/L (3.6-5.0) L 02/23/19 07:25 Chloride 97.7 mmol/L (98-107) L 02/23/19 07:25 Carbon Dioxide 25 mmol/L (22-30) 02/23/19 07:25 18 mmol/L 02/23/19 07:25 BUN 10 mg/dL (9-20) 02/23/19 07:25 0.5 mg/dL (0.8-1.5) L 02/23/19 07:25 Estimated GFR > 60 ml/min 02/23/19 07:25 20 % 02/23/19 07:25 Glucose 107 mg/dL (75-100) H 02/23/19 07:25 POC Glucose 131 (70-105) H 02/23/19 11:39 5.8 % (4-6) 02/16/19 10:34 Lactic Acid 1.40 mmol/L (0.7-2.0) 02/16/19 13:12 Calcium 8.6 mg/dL (8.4-10.2) 02/23/19 07:25 Phosphorus 2.20 mg/dL (2.5-4.5) L 02/18/19 05:27 Magnesium 1.90 mg/dL (1.7-2.3) 02/20/19 11:41 0.80 mg/dL (0.1-1.2) 02/17/19 05:45 0.4 mg/dL (0-0.2) H 02/16/19 10:34 0.8 mg/dL 02/16/19 10:34 AST 19 units/L (5-40) 02/17/19 05:45 ALT 37 units/L (7-56) 02/17/19 05:45 63 units/L (35-129) 02/17/19 05:45 0.057 ng/mL (0.00-0.029) H 02/18/19 18:05 7.0 g/dL (6.3-8.2) 02/17/19 05:45 2.8 g/dL (3.9-5) L 02/17/19 05:45 0.7 % 02/17/19 05:45 Triglycerides 70 mg/dL (2-149) 02/18/19 18:05 Cholesterol 109 mg/dL (50-199) 02/18/19 18:05 72 mg/dL (50-130) 02/18/19 18:05 26 mg/dL (40-59) L 02/18/19 18:05 4.19 % 02/18/19 18:05 Yellow (Yellow) 02/22/19 Unknown Clear (Clear) 02/22/19 Unknown 7.0 (5.0-7.0) 02/22/19 Unknown Ur Specific [place] 1.006 (1.003-1.030) 02/22/19 Unknown <15 mg/dl mg/dL (Negative) 02/22/19 Unknown Neg mg/dL (Negative) 02/22/19 Unknown Neg mg/dL (Negative) 02/22/19 Unknown Mod (Negative) 02/22/19 Unknown Neg (Negative) 02/22/19 Unknown Neg (Negative) 02/22/19 Unknown < 2.0 mg/dL (<2.0) 02/22/19 Unknown Ur Leukocyte Esterase Neg (Negative) 02/22/19 Unknown 1.0 /HPF (0.0-6.0) 02/22/19 Unknown < 1.0 /HPF (0.0-6.0) 02/22/19 Unknown U Epithel Cells (Auto) < 1.0 /HPF (0-13.0) 02/22/19 Unknown Few /HPF 02/16/19 13:16 Active Medications - Current Medications Current Medications: Generic Name Dose Route Start Last Admin Trade Name Freq PRN Reason Stop Dose Admin Acetaminophen 650 mg 02/16/19 19:42 02/22/19 18:48 Tylenol PO 650 mg Q4H PRN Administration Pain MILD(1-3)/Fever >100.5/GOMEZ Apixaban 10 mg 02/20/19 14:00 02/23/19 10:01 Eliquis PO 02/26/19 22:01 10 mg Q12HR MIGUEL Administration Protocol Apixaban 5 mg 02/27/19 10:00 Eliquis PO Q12HR MIGUEL Protocol Famotidine 20 mg 02/20/19 10:00 02/23/19 10:01 Pepcid PO 20 mg BID MIGUEL Administration Hydromorphone HCl 0.5 mg 02/16/19 17:01 02/19/19 06:26 Dilaudid IV 0.5 mg Q3H PRN Administration Pain , Severe (7-10) Ondansetron HCl 4 mg 02/16/19 19:42 Zofran IV Q8H PRN Nausea And Vomiting Oxycodone/Acetaminophen 1 tab 02/16/19 19:42 02/21/19 21:14 Percocet 5/325 PO 1 tab Q6H PRN Administration Pain, Moderate (4-6) Sodium Chloride 10 ml 02/16/19 22:00 02/23/19 10:02 Sodium Chloride Flush Syringe 10 Ml IV 10 ml BID MIGUEL Administration Sodium Chloride 10 ml 02/16/19 19:42 Sodium Chloride Flush Syringe 10 Ml IV PRN PRN LINE FLUSH
[2019-02-24] MEDS: ELIQUIS PO SCH ×2 (11:04→21:46)
[2019-02-24] MEDS: SODIUM CHLORIDE FLUSH SYRINGE 10 ML IV SCH ×2 (11:04→21:47)
[2019-02-24] MEDS: PEPCID PO SCH ×2 (11:04→21:46)
--- NOTE | 2019-02-24 12:21 | Progress Note ---
Assessment and Plan Assessment and plan: Acute hypoxic respiratory failure. Etiology multifactorial secondary to sepsis, pneumonia and large right PE. Continue O2 for supportive care. Sepsis: fever improved; etiology secondary to pyelonephritis with nephrolithiasis. ID following. Continue cefepime 2 g every 12 hours and follow cultures. Persistent fevers. Improved. ? Drug fever. Cont. to monitor off abx Left-sided pyelonephritis with nephrolithiasis: s/p IR 8 [place] nephrostomy tube placed into his left kidney. Urine culture negative. Continue antibiotics per ID LLL pneumonia v/s lung infarct. Continue antibiotics and follow-up imaging. Large right acute occlusive PE at right main pulmonary artery and left lower lobe PE with associated pulmonary infarct: patient with evidence of right heart dysfunction. S/p Successful thrombectomy of the right lobar and main pulmonary artery pulmonary embolisms on 02/19, not a candidate for thrombolytic therapy due to recent placement of his nephrostomy tube. Hypokalemia. Replete potassium Accelerated HTN. Continue antihypertensive medications. Deconditioning. PT evaluation. History Interval history: No new issues overnight. No fever for 24 hr Hospitalist Physical - Constitutional Vitals: Temp Pulse Resp BP Pulse Ox 98.0 F 93 H 28 H 130/91 97 02/24/19 05:17 02/23/19 22:23 02/24/19 05:17 02/24/19 05:17 02/23/19 23:50 General appearance: Present: no acute distress - EENT Eyes: Present: PERRL, EOM intact ENT: hearing intact, clear oral mucosa, dentition normal - Neck Neck: Present: supple, normal ROM - Respiratory Respiratory effort: normal Respiratory: bilateral: CTA - Cardiovascular Rhythm: regular Heart Sounds: Present: S1 & S2. Absent: gallop, rub - Extremities Extremities: no ischemia, No edema, Full ROM - Abdominal General gastrointestinal: soft, non-tender, non-distended, normal bowel sounds - Integumentary Integumentary: Present: clear, warm, dry - Neurologic Neurologic: CNII-XII intact, moves all extremities Results - Labs CBC & Chem 7: 02/23/19 07:25 02/23/19 07:25 Labs: Laboratory Last Values WBC 9.8 K/mm3 (4.5-11.0) 02/23/19 07:25 RBC 3.83 M/mm3 (3.65-5.03) 02/23/19 07:25 Hgb 12.3 gm/dl (11.8-15.2) 02/23/19 07:25 Hct 36.3 % (35.5-45.6) 02/23/19 07:25 MCV 95 fl (84-94) H 02/23/19 07:25 MCH 32 pg (28-32) 02/23/19 07:25 MCHC 34 % (32-34) 02/23/19 07:25 RDW 13.7 % (13.2-15.2) 02/23/19 07:25 Plt Count 430 K/mm3 (140-440) 02/23/19 07:25 Lymph % (Auto) 14.3 % (13.4-35.0) 02/23/19 07:25 [place] % (Auto) 9.4 % (0.0-7.3) H 02/23/19 07:25 Eos % (Auto) 1.3 % (0.0-4.3) 02/23/19 07:25 Baso % (Auto) 1.1 % (0.0-1.8) 02/23/19 07:25 Lymph # 1.4 K/mm3 (1.2-5.4) 02/23/19 07:25 [place] # 0.9 K/mm3 (0.0-0.8) H 02/23/19 07:25 Eos # 0.1 K/mm3 (0.0-0.4) 02/23/19 07:25 Baso # 0.1 K/mm3 (0.0-0.1) 02/23/19 07:25 Seg Neutrophils % 73.9 % (40.0-70.0) H 02/23/19 07:25 Seg Neutrophils # 7.2 K/mm3 (1.8-7.7) 02/23/19 07:25 PT 15.2 Sec. (12.2-14.9) H 02/18/19 15:47 INR 1.23 (0.87-1.13) H 02/18/19 15:47 APTT 29.5 Sec. (24.2-36.6) 02/18/19 15:47 > 66297 ng/mlDDU (0-234) H 02/18/19 13:17 Heparin Anti-Xa Level < 0.10 U.I./ml (0.3-0.7) L 02/20/19 11:41 POC ABG pH 7.439 (7.35-7.45) 02/18/19 21:02 POC ABG pCO2 37.8 (35-45) 02/18/19 21:02 POC ABG pO2 238 (80-105) H 02/18/19 21:02 POC ABG HCO3 25.6 (22-26 mml/L) 02/18/19 21:02 POC ABG Total CO2 27 (23-27mmol/L) 02/18/19 21:02 POC ABG O2 Sat 100 02/18/19 21:02 POC ABG Base Excess 1 ((-2) - (+3)mmol/L) 02/18/19 21:02 100 % 02/18/19 21:02 Sodium 137 mmol/L (137-145) 02/23/19 07:25 Potassium 3.2 mmol/L (3.6-5.0) L 02/23/19 07:25 Chloride 97.7 mmol/L (98-107) L 02/23/19 07:25 Carbon Dioxide 25 mmol/L (22-30) 02/23/19 07:25 18 mmol/L 02/23/19 07:25 BUN 10 mg/dL (9-20) 02/23/19 07:25 0.5 mg/dL (0.8-1.5) L 02/23/19 07:25 Estimated GFR > 60 ml/min 02/23/19 07:25 20 % 02/23/19 07:25 Glucose 107 mg/dL (75-100) H 02/23/19 07:25 POC Glucose 96 (70-105) 02/24/19 07:55 5.8 % (4-6) 02/16/19 10:34 Lactic Acid 1.40 mmol/L (0.7-2.0) 02/16/19 13:12 Calcium 8.6 mg/dL (8.4-10.2) 02/23/19 07:25 Phosphorus 2.20 mg/dL (2.5-4.5) L 02/18/19 05:27 Magnesium 1.90 mg/dL (1.7-2.3) 02/20/19 11:41 0.80 mg/dL (0.1-1.2) 02/17/19 05:45 0.4 mg/dL (0-0.2) H 02/16/19 10:34 0.8 mg/dL 02/16/19 10:34 AST 19 units/L (5-40) 02/17/19 05:45 ALT 37 units/L (7-56) 02/17/19 05:45 63 units/L (35-129) 02/17/19 05:45 0.057 ng/mL (0.00-0.029) H 02/18/19 18:05 7.0 g/dL (6.3-8.2) 02/17/19 05:45 2.8 g/dL (3.9-5) L 02/17/19 05:45 0.7 % 02/17/19 05:45 Triglycerides 70 mg/dL (2-149) 02/18/19 18:05 Cholesterol 109 mg/dL (50-199) 02/18/19 18:05 72 mg/dL (50-130) 02/18/19 18:05 26 mg/dL (40-59) L 02/18/19 18:05 4.19 % 02/18/19 18:05 Yellow (Yellow) 02/22/19 Unknown Clear (Clear) 02/22/19 Unknown 7.0 (5.0-7.0) 02/22/19 Unknown Ur Specific [place] 1.006 (1.003-1.030) 02/22/19 Unknown <15 mg/dl mg/dL (Negative) 02/22/19 Unknown Neg mg/dL (Negative) 02/22/19 Unknown Neg mg/dL (Negative) 02/22/19 Unknown Mod (Negative) 02/22/19 Unknown Neg (Negative) 02/22/19 Unknown Neg (Negative) 02/22/19 Unknown < 2.0 mg/dL (<2.0) 02/22/19 Unknown Ur Leukocyte Esterase Neg (Negative) 02/22/19 Unknown 1.0 /HPF (0.0-6.0) 02/22/19 Unknown < 1.0 /HPF (0.0-6.0) 02/22/19 Unknown U Epithel Cells (Auto) < 1.0 /HPF (0-13.0) 02/22/19 Unknown Few /HPF 02/16/19 13:16 Active Medications - Current Medications Current Medications: Generic Name Dose Route Start Last Admin Trade Name Freq PRN Reason Stop Dose Admin Acetaminophen 650 mg 02/16/19 19:42 02/22/19 18:48 Tylenol PO 650 mg Q4H PRN Administration Pain MILD(1-3)/Fever >100.5/GOMEZ Apixaban 10 mg 02/20/19 14:00 02/24/19 11:04 Eliquis PO 02/26/19 22:01 10 mg Q12HR MIGUEL Administration Protocol Apixaban 5 mg 02/27/19 10:00 Eliquis PO Q12HR MIGUEL Protocol Famotidine 20 mg 02/20/19 10:00 02/24/19 11:04 Pepcid PO 20 mg BID MIGUEL Administration Hydromorphone HCl 0.5 mg 02/16/19 17:01 02/19/19 06:26 Dilaudid IV 0.5 mg Q3H PRN Administration Pain , Severe (7-10) Ondansetron HCl 4 mg 02/16/19 19:42 Zofran IV Q8H PRN Nausea And Vomiting Oxycodone/Acetaminophen 1 tab 02/16/19 19:42 02/21/19 21:14 Percocet 5/325 PO 1 tab Q6H PRN Administration Pain, Moderate (4-6) Sodium Chloride 10 ml 02/16/19 22:00 02/24/19 11:04 Sodium Chloride Flush Syringe 10 Ml IV 10 ml BID MIGUEL Administration Sodium Chloride 10 ml 02/16/19 19:42 Sodium Chloride Flush Syringe 10 Ml IV PRN PRN LINE FLUSH Nutrition/Malnutrition Assess - Dietary Evaluation Nutrition/Malnutrition Findings: Nutrition Notes Start: 02/23/19 16:20 Freq: Status: Active Protocol: Document 02/23/19 16:20 RM (Rec: 02/23/19 16:21 RM [id number]) Nutrition Notes Need for Assessment generated from: LOS Initial or Follow up Brief Note Height 5 ft 3 in Weight 74.5 kg [place] Body Weight (kg) 56.36 BMI 29.0 Subjective/Other Information Screened for LOS. Recorded PO intake 80% X 3 days. Nutrition Intervention Revisit per MD consult or patient Sign Off request:
[2019-02-25] MEDS: PEPCID PO SCH ×2 (10:00→21:32)
[2019-02-25] MEDS: ELIQUIS PO SCH ×2 (10:00→21:31)
[2019-02-25] MEDS: SODIUM CHLORIDE FLUSH SYRINGE 10 ML IV SCH ×2 (10:00→21:32)
--- NOTE | 2019-02-25 17:44 | Progress Note ---
Assessment and Plan Assessment and plan: Acute hypoxic respiratory failure. Etiology multifactorial secondary to sepsis, pneumonia and large right PE. Continue O2 for supportive care. Sepsis: fever improved; etiology secondary to pyelonephritis with nephrolithiasis. ID followingn off abx Persistent fevers. Resolved. ? Drug fever. Cont. to monitor off abx Left-sided pyelonephritis with nephrolithiasis: s/p IR 8 [place] nephrostomy tube placed into his left kidney. Urine culture negative. Continue antibiotics per ID LLL pneumonia v/s lung infarct. Continue antibiotics and follow-up imaging. Large right acute occlusive PE at right main pulmonary artery and left lower lobe PE with associated pulmonary infarct: patient with evidence of right heart dysfunction. S/p Successful thrombectomy of the right lobar and main pulmonary artery pulmonary embolisms on 02/19, not a candidate for thrombolytic therapy due to recent placement of his nephrostomy tube. Hypokalemia. Replete potassium Accelerated HTN. Continue antihypertensive medications. Deconditioning. PT evaluation reports home with no needs. Disposition. Discharge in am if afebrile with nephrostomy tube and f/u with IR, ID and Urology. History Interval history: No new issues overnight. No fever for 24 hr Hospitalist Physical - Constitutional Vitals: Temp Pulse Resp BP Pulse Ox 97.9 F 99 H 20 128/99 97 02/25/19 12:11 02/25/19 12:11 02/25/19 12:11 02/25/19 12:11 02/25/19 12:11 General appearance: Present: no acute distress - EENT Eyes: Present: PERRL, EOM intact ENT: hearing intact, clear oral mucosa, dentition normal - Neck Neck: Present: supple, normal ROM - Respiratory Respiratory effort: normal Respiratory: bilateral: CTA - Cardiovascular Rhythm: regular Heart Sounds: Present: S1 & S2. Absent: gallop, rub - Extremities Extremities: no ischemia, No edema, Full ROM - Abdominal General gastrointestinal: soft, non-tender, non-distended, normal bowel sounds - Integumentary Integumentary: Present: clear, warm, dry - Neurologic Neurologic: CNII-XII intact, moves all extremities Results - Labs CBC & Chem 7: 02/23/19 07:25 02/23/19 07:25 Labs: Laboratory Last Values WBC 9.8 K/mm3 (4.5-11.0) 02/23/19 07:25 RBC 3.83 M/mm3 (3.65-5.03) 02/23/19 07:25 Hgb 12.3 gm/dl (11.8-15.2) 02/23/19 07:25 Hct 36.3 % (35.5-45.6) 02/23/19 07:25 MCV 95 fl (84-94) H 02/23/19 07:25 MCH 32 pg (28-32) 02/23/19 07:25 MCHC 34 % (32-34) 02/23/19 07:25 RDW 13.7 % (13.2-15.2) 02/23/19 07:25 Plt Count 430 K/mm3 (140-440) 02/23/19 07:25 Lymph % (Auto) 14.3 % (13.4-35.0) 02/23/19 07:25 [place] % (Auto) 9.4 % (0.0-7.3) H 02/23/19 07:25 Eos % (Auto) 1.3 % (0.0-4.3) 02/23/19 07:25 Baso % (Auto) 1.1 % (0.0-1.8) 02/23/19 07:25 Lymph # 1.4 K/mm3 (1.2-5.4) 02/23/19 07:25 [place] # 0.9 K/mm3 (0.0-0.8) H 02/23/19 07:25 Eos # 0.1 K/mm3 (0.0-0.4) 02/23/19 07:25 Baso # 0.1 K/mm3 (0.0-0.1) 02/23/19 07:25 Seg Neutrophils % 73.9 % (40.0-70.0) H 02/23/19 07:25 Seg Neutrophils # 7.2 K/mm3 (1.8-7.7) 02/23/19 07:25 PT 15.2 Sec. (12.2-14.9) H 02/18/19 15:47 INR 1.23 (0.87-1.13) H 02/18/19 15:47 APTT 29.5 Sec. (24.2-36.6) 02/18/19 15:47 > 85024 ng/mlDDU (0-234) H 02/18/19 13:17 Heparin Anti-Xa Level < 0.10 U.I./ml (0.3-0.7) L 02/20/19 11:41 POC ABG pH 7.439 (7.35-7.45) 02/18/19 21:02 POC ABG pCO2 37.8 (35-45) 02/18/19 21:02 POC ABG pO2 238 (80-105) H 02/18/19 21:02 POC ABG HCO3 25.6 (22-26 mml/L) 02/18/19 21:02 POC ABG Total CO2 27 (23-27mmol/L) 02/18/19 21:02 POC ABG O2 Sat 100 02/18/19 21:02 POC ABG Base Excess 1 ((-2) - (+3)mmol/L) 02/18/19 21:02 100 % 02/18/19 21:02 Sodium 137 mmol/L (137-145) 02/23/19 07:25 Potassium 3.2 mmol/L (3.6-5.0) L 02/23/19 07:25 Chloride 97.7 mmol/L (98-107) L 02/23/19 07:25 Carbon Dioxide 25 mmol/L (22-30) 02/23/19 07:25 18 mmol/L 02/23/19 07:25 BUN 10 mg/dL (9-20) 02/23/19 07:25 0.5 mg/dL (0.8-1.5) L 02/23/19 07:25 Estimated GFR > 60 ml/min 02/23/19 07:25 20 % 02/23/19 07:25 Glucose 107 mg/dL (75-100) H 02/23/19 07:25 POC Glucose 116 (70-105) H 02/25/19 15:55 5.8 % (4-6) 02/16/19 10:34 Lactic Acid 1.40 mmol/L (0.7-2.0) 02/16/19 13:12 Calcium 8.6 mg/dL (8.4-10.2) 02/23/19 07:25 Phosphorus 2.20 mg/dL (2.5-4.5) L 02/18/19 05:27 Magnesium 1.90 mg/dL (1.7-2.3) 02/20/19 11:41 0.80 mg/dL (0.1-1.2) 02/17/19 05:45 0.4 mg/dL (0-0.2) H 02/16/19 10:34 0.8 mg/dL 02/16/19 10:34 AST 19 units/L (5-40) 02/17/19 05:45 ALT 37 units/L (7-56) 02/17/19 05:45 63 units/L (35-129) 02/17/19 05:45 0.057 ng/mL (0.00-0.029) H 02/18/19 18:05 7.0 g/dL (6.3-8.2) 02/17/19 05:45 2.8 g/dL (3.9-5) L 02/17/19 05:45 0.7 % 02/17/19 05:45 Triglycerides 70 mg/dL (2-149) 02/18/19 18:05 Cholesterol 109 mg/dL (50-199) 02/18/19 18:05 72 mg/dL (50-130) 02/18/19 18:05 26 mg/dL (40-59) L 02/18/19 18:05 4.19 % 02/18/19 18:05 Yellow (Yellow) 02/22/19 Unknown Clear (Clear) 02/22/19 Unknown 7.0 (5.0-7.0) 02/22/19 Unknown Ur Specific [place] 1.006 (1.003-1.030) 02/22/19 Unknown <15 mg/dl mg/dL (Negative) 02/22/19 Unknown Neg mg/dL (Negative) 02/22/19 Unknown Neg mg/dL (Negative) 02/22/19 Unknown Mod (Negative) 02/22/19 Unknown Neg (Negative) 02/22/19 Unknown Neg (Negative) 02/22/19 Unknown < 2.0 mg/dL (<2.0) 02/22/19 Unknown Ur Leukocyte Esterase Neg (Negative) 02/22/19 Unknown 1.0 /HPF (0.0-6.0) 02/22/19 Unknown < 1.0 /HPF (0.0-6.0) 02/22/19 Unknown U Epithel Cells (Auto) < 1.0 /HPF (0-13.0) 02/22/19 Unknown Few /HPF 02/16/19 13:16 Active Medications - Current Medications Current Medications: Generic Name Dose Route Start Last Admin Trade Name Freq PRN Reason Stop Dose Admin Acetaminophen 650 mg 02/16/19 19:42 02/22/19 18:48 Tylenol PO 650 mg Q4H PRN Administration Pain MILD(1-3)/Fever >100.5/GOMEZ Apixaban 10 mg 02/20/19 14:00 02/25/19 10:00 Eliquis PO 02/26/19 22:01 10 mg Q12HR MIGUEL Administration Protocol Apixaban 5 mg 02/27/19 10:00 Eliquis PO Q12HR MIGUEL Protocol Famotidine 20 mg 02/20/19 10:00 02/25/19 10:00 Pepcid PO 20 mg BID MIGUEL Administration Hydromorphone HCl 0.5 mg 02/16/19 17:01 02/19/19 06:26 Dilaudid IV 0.5 mg Q3H PRN Administration Pain , Severe (7-10) Ondansetron HCl 4 mg 02/16/19 19:42 Zofran IV Q8H PRN Nausea And Vomiting Oxycodone/Acetaminophen 1 tab 02/16/19 19:42 02/21/19 21:14 Percocet 5/325 PO 1 tab Q6H PRN Administration Pain, Moderate (4-6) Sodium Chloride 10 ml 02/16/19 22:00 02/25/19 10:00 Sodium Chloride Flush Syringe 10 Ml IV 10 ml BID MIGUEL Administration Sodium Chloride 10 ml 02/16/19 19:42 Sodium Chloride Flush Syringe 10 Ml IV PRN PRN LINE FLUSH Nutrition/Malnutrition Assess - Dietary Evaluation Nutrition/Malnutrition Findings: Nutrition Notes Start: 02/23/19 16:20 Freq: Status: Active Protocol: Document 02/23/19 16:20 RM (Rec: 02/23/19 16:21 RM [id number]) Nutrition Notes Need for Assessment generated from: LOS Initial or Follow up Brief Note Height 5 ft 3 in Weight 74.5 kg [place] Body Weight (kg) 56.36 BMI 29.0 Subjective/Other Information Screened for LOS. Recorded PO intake 80% X 3 days. Nutrition Intervention Revisit per MD consult or patient Sign Off request:
--- NOTE | 2019-02-26 09:11 | Discharge Summary ---
Providers - Providers Date of Admission: 02/16/19 12:17 Attending physician: STEVEN BRICENO MD 02/17/19 07:15 Consult to Physician [CONS] Routine Comment: Consulting Provider: RODRIGO GUILLEN Physician Instructions: Reason For Exam: Lt UP Stone 02/17/19 12:58 Consult to Physician [CONS] Routine Comment: Consulting Provider: JANEL VILLA Physician Instructions: Reason For Exam: Sepsis, pyelonephritis,pneumonia 02/21/19 11:35 Physical Therapy Evaluation and Treat [CONS] Routine Comment: Reason For Exam: deconditioning [facility] Reason for admission: sepsis, pyelonephritis, PE Condition: Stable Hospital course: Patient is a 39-year-old male presents emergency room with left-sided abdominal pain and nausea. Patient denies vomiting. Patient states he recently had urinary symptoms and was seen in a urgent care and given a antibiotic for his urinary infection. Patient states symptoms are worsening. Patient states he has a fever today. Patient states he's not feeling very good. Patient states his abdominal pain as a 10 out of 10. Patient states the pain is worse with movement and better with rest. Acute hypoxic respiratory failure. Etiology multifactorial secondary to sepsis, pneumonia and large right PE. Resolved and patient is saturating well on room air. Sepsis: etiology secondary to pyelonephritis with nephrolithiasis. ID consult appreciated, patient was treated with IV antibiotics and IV fluids and resolved. Persistent fevers; likely due to drug reaction and patient is off medications and fever resolved. Left-sided pyelonephritis with nephrolithiasis: s/p IR 8 [place] nephrostomy tube placed into his left kidney. Urine culture negative. Patient finished a course of antibiotics. LLL pneumonia v/s lung infarct treated with IV antibiotics and ggets better. Large right acute occlusive PE at right main pulmonary artery and left lower lobe PE with associated pulmonary infarct: patient with evidence of right heart dysfunction. S/p Successful thrombectomy of the right lobar and main pulmonary artery pulmonary embolisms on 02/19, not a candidate for thrombolytic therapy due to recent placement of his nephrostomy tube. Hypokalemia; Replete potassium. Accelerated HTN; Continue antihypertensive medications. Deconditioning; PT evaluation reports home with no needs. Patient scheduled to see urology's office. Patient was given prescription for eliquis for 1 month and will follow with his PCP. Disposition: DC-01 TO HOME OR SELFCARE Time spent for discharge: 35 minutes - Discharge Diagnoses (1) Abdominal pain Status: Acute Qualifiers: Abdominal location: left upper quadrant Qualified Code(s): R10.12 - Left upper quadrant pain (2) Dehydration Status: Acute (3) Fever Status: Acute Qualifiers: Fever type: unspecified Qualified Code(s): R50.9 - Fever, unspecified (4) Kidney stone on left side Status: Acute (5) LLL pneumonia Status: Acute (6) Pulmonary embolism Status: Acute (7) Pyelonephritis Status: Acute (8) Sepsis Status: Acute Qualifiers: Sepsis type: sepsis due to unspecified organism Qualified Code(s): A41.9 - Sepsis, unspecified organism Core Measure Documentation - Palliative Care Palliative Care/ Comfort Measures: Not Applicable - Core Measures Any of the following diagnoses?: DVT/PE - VTE Discharge Requirements Deep Vein Thrombosis/Pulmonary Embolism Present on Admission: Yes Has pt received <5 days of overlap therapy or INR<2.0: Yes Anticoagulant overlap therapy prescribed at discharge: No Contraindication No Overlap Therapy order at DC: Not Indicated Exam - Physical Exam Narrative exam: Not in cardiopulmonary distress. The patient appeared well nourished and normally developed. Vital signs as documented. Head exam is unremarkable. No scleral icterus . Neck is without jugular venous distension, thyromegaly, or carotid bruits. Lungs are clear to auscultation. Cardiac exam reveals regular rate and Rhythm. First and second heart sounds normal. No murmurs, rubs or gallops. Abdominal exam reveals normal bowel sounds, no masses, no organomegaly and no aortic enlargement. Extremities are nonedematous and both femoral and pedal pulses are normal. Back; patient has nephrostomy tube on the left back [employer]: Alert and oriented 3. No focal weakness. - Constitutional Vitals: Temp Pulse Resp BP Pulse Ox 98.6 F 89 20 117/84 98 02/26/19 05:23 02/26/19 05:23 02/26/19 05:23 02/26/19 05:23 02/26/19 05:23 Plan Activity: no restrictions Weight Bearing Status: Full Weight Bearing Diet: low salt Follow up with: AMAN LANE MD [Primary Care Provider] - 7 Days RODRIGO GUILLEN MD [Staff Physician] - 7 Days Prescriptions: Apixaban [Eliquis] 5 mg PO Q12HR #64 tablet
[2019-02-26] MEDS: SODIUM CHLORIDE FLUSH SYRINGE 10 ML IV SCH (09:38)
[2019-02-26] MEDS: ELIQUIS PO SCH (09:38)
[2019-02-26] MEDS: PEPCID PO SCH (09:38)
--- NOTE | 2019-02-26 09:38 | Progress Note ---
Assessment and Plan Cultures: 02/16/2019 blood culture: No growth 02/16/2019 urine culture: <10 mixed 02/23/2019 blood culture: no growth A/P: 39/M with no PMH, admitted with: 1) Sepsis: Resolved. no fevers. unclear etiology possible PE vs drug fever. 2) Left-sided pyelonephritis with nephrolithiasis: s/p IR 8 [place] nephrostomy tube placed into his left kidney. Urine culture not impressive. repeat UA negative. Renal US shows improved left hydronephrosis since 02/16/2019, known nephrolithiasis and possible fatty liver. 3) ?LLL pneumonia v/s lung infarct 4) Large right acute occlusive PE at right main pulmonary artery and left lower lobe PE with associated pulmonary infarct: patient with evidence of right heart dysfunction. S/p Successful thrombectomy of the right lobar and main pulmonary artery pulmonary embolisms on 02/19 5) Acute respiratory failure: due to large PE, not a candidate for thrombolytic therapy due to recent placement of his nephrostomy tube. 6) HTN urgency Recs: monitor off antibiotics [facility] M: [phone] O:[phone] Subjective Date of service: 02/26/19 Principal diagnosis: large acute pulmonary embolism, obstructing left ureteropelvic stone Interval history: Patient seen and examined. Sitting in the chair on the side of the bed. States that he is feeling much better today. No fevers. Objective - Exam Narrative Exam: Constitutional: Alert, cooperative. No acute distress Head, Ears, Nose: Normocephalic, atraumatic. External ears, nose normal Eyes: Conjunctivae/corneas clear. No icterus. No ptosis. Neck: Supple, no meningeal signs Oral: no thrush. Cardiovascular: S1, S2 normal. Respiratory: CTA gigi GI: Soft, non-tender; bowel sounds normal. No peritoneal signs. No Left CVA tenderness Musculoskeletal: No pedal edema, no cyanosis. Skin: No rash or abscess Hem/Lymphatic: No palpable cervical or supraclavicular nodes. No lymphangitis Psych: Mood ok. Affect normal Neurological: Awake, alert, oriented. No gross abnormality - Constitutional Vitals: Vital Signs Temp Pulse Resp BP Pulse Ox 98.6 F 89 20 117/84 98 02/26/19 05:23 02/26/19 05:23 02/26/19 05:23 02/26/19 05:23 02/26/19 05:23 Temperature -Last 24 Hours Temperature 98.6 F Temperature 98.3 F Temperature 98.2 F Temperature 97.9 F - Labs CBC & Chem 7: 02/23/19 07:25 02/23/19 07:25 Labs: Abnormal lab results 02/25/19 02/25/19 Range/Units 12:20 15:55 POC Glucose 123 H 116 H (70-105)
[2019-02-26 13:27] VITALS: BP 122/93
[2019-02-27] MEDS ORDERED: ELIQUIS PO SCH (10:00)
== END 2019-02-26 14:04 | disposition home or self-care (01) | DRG 853 ==
LOC: ED 10:10 → 3A 12:17 → 4A 02-18 15:40 → CC1 02-18 20:33 → 3A 02-20 21:24
PROVIDERS: ADMIT Internal Medicine; ATTEND Internal Medicine
PROC: 4A033R1 Measurement of Arterial Saturation, Peripheral, Percutaneous Approach (ICD-10-PCS; 2019-02-18)
PROC: 0T943ZZ Drainage of Left Kidney Pelvis, Percutaneous Approach (ICD-10-PCS; 2019-02-18)
PROC: 02CQ3ZZ Extirpation of Matter from Right Pulmonary Artery, Percutaneous Approach (ICD-10-PCS; principal; 2019-02-19)
PROC: 02CQ3ZZ Extirpation of Matter from Right Pulmonary Artery, Percutaneous Approach (ICD-10-PCS; 2019-02-19)
PROC: 02CQ3ZZ Extirpation of Matter from Right Pulmonary Artery, Percutaneous Approach (ICD-10-PCS; 2019-02-19)
PROC: 02CQ3ZZ Extirpation of Matter from Right Pulmonary Artery, Percutaneous Approach (ICD-10-PCS; 2019-02-19)
PROC: 02CQ3ZZ Extirpation of Matter from Right Pulmonary Artery, Percutaneous Approach (ICD-10-PCS; 2019-02-19)
PROC: 02CQ3ZZ Extirpation of Matter from Right Pulmonary Artery, Percutaneous Approach (ICD-10-PCS; 2019-02-19)
PROC: B31S1ZZ Fluoroscopy of Right Pulmonary Artery using Low Osmolar Contrast (ICD-10-PCS; 2019-02-19)
DX: A41.9 Sepsis, unspecified organism (principal); J96.01 Acute respiratory failure with hypoxia; I26.99 Other pulmonary embolism without acute cor pulmonale; J18.1 Lobar pneumonia, unspecified organism; J98.11 Atelectasis; N13.6 Pyonephrosis; I11.9 Hypertensive heart disease without heart failure; F17.210 Nicotine dependence, cigarettes, uncomplicated; E86.0 Dehydration; I16.0 Hypertensive urgency; E87.6 Hypokalemia
CPT/HCPCS: 36014; 36415; 36600; 37184; 37187; 50432; 71045; 71046; 71275; 74176; 75741; 76770; 76937; 80048; 80053; 80061; 80076; 81001; 82140; 82803; 82962; 83036; 83735; 84100; 84484; 85014; 85018; 85025; 85027; 85049; 85379; 85520; 85610; 85730; 87040; 87086; 93005; 93010; 93306; 93970; 94760; 96361; 96365; 96375; G0378; C1729; C1769; J0692; J0696; J1170; J1644; J1956; J2250; J2405; J3010; J3475; J3480; J7030; J7040; J7042; Q9967